=== PATIENT | female | born 1940 | race Caucasian/White ===

== ENCOUNTER → 2016-05-09 | Outpatient (CLI) | payer BC ==
[~2016-05-09] MED LIST: ASPEC325 PO; CLTP PO; FOSI20TA2 PO; FSM70 PO; MULT-506 PO; SIMV40TA2 PO; SYN50 PO
--- NOTE | 2016-05-14 07:54 | MAMMOGRAPHY REPORT ---
UNILATERAL RIGHT DIGITAL DIAGNOSTIC MAMMOGRAM TOMOSYNTHESIS AND TARGETED RIGHT ULTRASOUND: 05/09/2016 CLINICAL HISTORY: Callback from screening mammogram for right breast mass. TECHNIQUE: Breast tomosynthesis in addition to standard 2D mammography was performed. Spot char yu right CC and MLO 2-D and tomosynthesis images were obtained. COMPARISON: Comparison is made to exams dated: 02/08/2016 mammogram, 02/02/2014 mammogram, 5 mammogram, 01/13/2013 mammogram, and 01/21/2012 mammogram - [facility]. BREAST COMPOSITION: There are scattered areas of fibroglandular density in the right breast. FINDINGS: Spot compression views demonstrate a persistent oval partially circumscribed and partiall y obscured 9 mm mass seen within the right 8 9:00 breast. This appears increased compared to prior exams. Targeted ultrasound was performed of the area of the mammographic mass. In the right breast at 8:30 , 4 cm from the nipple, there is an oval circumscribed parallel anechoic mass with a few thin financial services internship al septations, measuring 6 x 3 x 9 mm. This corresponds with the increasing mammographic mass and i s consistent with a benign cyst. IMPRESSION: ACR BI-RADS CATEGORY 2: BENIGN, TARGETED ULTRASOUND ACR BI-RADS CATEGORY 2: BENIGN Benign 9 mm cyst in the right breast at 8:30 on ultrasound, which corresponds with the increasing ma mmographic mass. There is no mammographic or targeted sonographic evidence of malignancy. Return to annual mammogram screening schedule is recommended, due February 2017. The patient has been verbal ly notified of the results. Approximately 10% of breast cancers are not detected with mammography. A negative mammographic repor t should not delay biopsy if a clinically suggestive mass is present. Jannette Ponce M.D. ah/:05/09/2016 09:11:53 Job Specification Writer: Codie ZHANG(Faraz)(M), [facility] letter sent: Normal 1/2 BI-RADS Code: ACR BI-RADS Category 2: Benign Ultrasound BI-RADS: ACR BI-RADS Category 2: Benign
== END | disposition home or self-care (01) ==
LOC: C.MAMM 08:40
PROVIDERS: ATTEND Internal Medicine
DX: N60.01 Solitary cyst of right breast (principal)

== ENCOUNTER → 2016-08-20 | Outpatient (CLI) | payer BC ==
[2016-08-20 12:48] LABS: CALCIUM 9.5 mg/dl (8.5-10.1)
[2016-08-20 12:50] LABS: ALT/SGPT 23 U/L (12-78); BLOOD UREA NITROGEN 13 mg/dl (7-18); BUN/CREATININE RATIO 16.8 (10-20); CARBON DIOXIDE 25 mmol/L (21-32); CHLORIDE 107 mmol/L (98-107); CHOLESTEROL 138 mg/dl (0-200); GLUCOSE 98 mg/dl (70-99); POTASSIUM 4.3 mmol/L (3.5-5.1); SODIUM 141 mmol/L (136-145); TRIGLYCERIDES 143 mg/dl (0-150); VERY LOW DENSITY LIPOPROT CALC 29 mg/dl
[2016-08-20 13:02] LABS: ALB/GLOB RATIO 0.9 (0.9-2); ALKALINE PHOSPHATASE 50 U/L (45-117); AST/SGOT 13 U/L (15-37); CHOLESTEROL/HDL RATIO 3.5; HDL CHOLESTEROL 40 mg/dl; LDL CHOLESTEROL CALCULATED 69 mg/dl; THYROID STIMULATING HORMONE 0.613 uIu/ml (0.300-4.500)
[2016-08-20 13:05] LABS: ESTIMATED AVERAGE GLUCOSE 126 mg/dl; HA1C FLAG Normal (Normal)
== END | disposition home or self-care (01) ==
LOC: C.LABBFT 08:59
PROVIDERS: ATTEND Internal Medicine
DX: E03.9 Hypothyroidism, unspecified (principal); E78.5 Hyperlipidemia, unspecified; R73.01 Impaired fasting glucose

== ENCOUNTER → 2017-02-11 | Outpatient (CLI) | payer BC ==
[2017-02-11 12:26] LABS: ALT/SGPT 20 U/L (12-78); BLOOD UREA NITROGEN 13 mg/dl (7-18); CALCIUM 9.8 mg/dl (8.5-10.1); CARBON DIOXIDE 27 mmol/L (21-32); CHLORIDE 102 mmol/L (98-107); CHOLESTEROL 123 mg/dl (0-200); CREATININE 0.76 mg/dl (0.60-1.20); GLUCOSE 98 mg/dl (70-99); POTASSIUM 3.9 mmol/L (3.5-5.1); SODIUM 136 mmol/L (136-145); TRIGLYCERIDES 110 mg/dl (0-150); VERY LOW DENSITY LIPOPROT CALC 22 mg/dl
[2017-02-11 12:37] LABS: ALB/GLOB RATIO 0.9 (0.9-2); ALKALINE PHOSPHATASE 60 U/L (45-117); AST/SGOT 13 U/L (15-37); CHOLESTEROL/HDL RATIO 2.7; HDL CHOLESTEROL 46 mg/dl; LDL CHOLESTEROL CALCULATED 55 mg/dl
[2017-02-11 12:38] LABS: ESTIMATED AVERAGE GLUCOSE 126 mg/dl; HA1C FLAG Normal (Normal); HEMATOCRIT 45.7 % (37-47); MEAN CELL VOLUME 92.7 fL (80-100); MEAN CORPUSCULAR HEMOGLOBIN 30.6 pg (25-34); MEAN PLATELET VOLUME 10.9 fL (7.4-10.4); PLATELET COUNT 222 K/uL (130-400); RED BLOOD COUNT 4.93 M/uL (4.2-5.4); WHITE BLOOD COUNT 12.04 K/uL (4.8-10.8)
== END | disposition home or self-care (01) ==
LOC: C.LABBFT 07:34
PROVIDERS: ATTEND Internal Medicine
DX: I10 Essential (primary) hypertension (principal); E78.5 Hyperlipidemia, unspecified; E03.9 Hypothyroidism, unspecified; R73.01 Impaired fasting glucose

== ENCOUNTER → 2017-02-17 | Outpatient (CLI) | payer BC ==
--- NOTE | 2017-02-17 12:06 | DIAGNOSTIC IMAGING REPORT ---
RIBS UNILATERAL WITH PA CHEST CLINICAL HISTORY: 76 years-old Female presenting with R07.81 Rib pain on left sideleft. TECHNIQUE: Frontal and oblique views of the left ribs as well as PA view of the chest were obtained. COMPARISON: None. FINDINGS: PA view of the chest demonstrates atherosclerosis of aortic arch. Normal cardiac silhouette size. Elevation of the left hemidiaphragm. Mild prominence of lung markings diffusely. Pulmonary vasculature is not significantly dilated. Minimal bandlike opacity at the left lung base. No large pleural effusion or pneumothorax. Dedicated views of the left ribs demonstrate no displaced rib fracture. Degenerative changes of the lumbar spine. Upper abdomen normal. IMPRESSION: 1. No displaced left rib fracture. 2. Elevated left hemidiaphragm with left basilar atelectasis. 3. Otherwise no evidence of acute cardiopulmonary disease. Electronically signed by: Boyd Bolivar M.D. 02/17/2017 12:05 PM Dictated Date/Time: 02/17/2017 12:01 PM
== END | disposition home or self-care (01) ==
LOC: C.RAD1850 11:31
PROVIDERS: ATTEND Internal Medicine
DX: R07.81 Pleurodynia (principal)

== ENCOUNTER → 2017-02-25 | Outpatient (CLI) | payer BC ==
[~2017-02-25] MED LIST changes: +OPTIRAY 320 IV PRN
--- NOTE | 2017-02-25 16:42 | DIAGNOSTIC IMAGING REPORT ---
ABD/PELVIS IV AND ORAL CONT CLINICAL HISTORY: 76 years-old Female presenting with ABNORMAL FINDING ON IMAGING, ELEVATED KAY DIAPHRA. TECHNIQUE: Multidetector CT of the abdomen and pelvis was performed after the administration of oral and intravenous contrast. IV contrast: 94 L of Optiray 320. A dose lowering technique was used consistent with the principles of ALARA (as low as reasonably achievable). COMPARISON: None. CT DOSE (mGy.cm): The estimated cumulative dose is 287.40 mGy.cm. 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 Lung bases: Extensive consolidation with associated volume loss in the left lower lobe and to a lesser degree in the posterior aspect of the lingula. Minimal dependent atelectasis in the right lower lobe. Aortic valve calcification. Coronary artery calcification. Normal heart size. No pericardial or pleural effusion. Liver: Normal morphology. Vague hypodensity centrally in segment 6 (series 3 image 118). Patent hepatic vasculature. Biliary: No intrahepatic or extrahepatic biliary ductal dilatation. Normal gallbladder. Pancreas: Normal. Spleen: Normal. Adrenal glands: Left adrenal gland contains a 10 mm nodule in the medial limb (series 3 image 119). Right adrenal gland normal. Kidneys and ureters: Normal. No hydronephrosis. Renal vascular calcification noted. No nephrolithiasis. Normal ureters. Bladder: Normal. Pelvic organs: Uterus surgically absent. Bowel: Diverticulosis of the descending and sigmoid colon. Few diverticula also noted near the hepatic flexure. The appendix is normal. No bowel obstruction. Peritoneal cavity: No free fluid or intraperitoneal gas. Lymph nodes: No enlarged lymph nodes in the abdomen or pelvis. Vasculature: Extensive calcified atherosclerotic plaque in the normal caliber abdominal aorta. This is greatest near the aortic bifurcation with significant stenosis. The apparent minimal lumen measures less than 3 mm although this may be exaggerated due to the presence of extensive calcification. IVC patent. Abdominal wall: Diastasis of the rectus abdominis. Musculoskeletal: Normal. IMPRESSION: 1. Left hemidiaphragm elevation with resulting extensive left lower lobe and lingular atelectasis. This is of uncertain etiology and uncertain clinical significance. 2. Extensive atherosclerosis with significant narrowing of the abdominal aorta near the bifurcation. The degree of narrowing depicted on this exam is likely exaggerated secondary to the presence of extensive calcified atherosclerotic plaque. 3. Indeterminate lesion in segment 6 of the liver. 4. 10 mm left adrenal gland nodule, indeterminate. 5. Diverticulosis. Electronically signed by: Boyd Bolivar M.D. 02/25/2017 4:41 PM Dictated Date/Time: 02/25/2017 4:33 PM
== END | disposition home or self-care (01) ==
LOC: C.CTS 15:45
PROVIDERS: ATTEND Internal Medicine
DX: R93.8 Abnormal findings on diagnostic imaging of other specified body structures (principal)

== ENCOUNTER → 2017-04-14 | Outpatient (CLI) | payer BC ==
--- NOTE | 2017-04-14 14:36 | DIAGNOSTIC IMAGING REPORT ---
CT ANGIOGRAM OF THE NECK CLINICAL HISTORY: Carotid artery stenosis. COMPARISON STUDY: CT angiogram of the neck dated 10/05/2015. TECHNIQUE: Following the IV administration of 120 of Optiray 320, CT angiogram of the neck was performed from the aortic arch to the skull base. Images are reviewed in the axial, sagittal, and coronal planes. 3-D MIPS images are created and assessed. IV contrast was administered without complication. All measurements were calculated based on NASCET criteria. A dose lowering technique was utilized adhering to the principles of ALARA. CT DOSE: 862.53 mGycm FINDINGS: Thoracic aorta: There is atherosclerotic calcification of the visualized. The imaged portions of the thoracic aorta are normal in caliber. The aortic arch demonstrates standard 3-vessel anatomy. High-grade stenosis is suspected at the origin of the innominate artery. Right carotid arterial system: The right common carotid artery is widely patent, as are the right internal and external carotid arteries. Only mild plaque is seen in the proximal right internal carotid artery. Left carotid arterial system: The left common carotid artery is widely patent. Advanced atherosclerotic plaque is seen in the left carotid bulb. There is high-grade (greater than 90%) stenosis at the origin of the left internal carotid artery. The remainder of the left internal carotid artery is widely patent. The origin of the left external carotid arteries not well-visualized and may be occluded. Vertebral arteries: There is high-grade stenosis at the origin of the left vertebral artery. The left vertebral artery is otherwise widely patent. The right vertebral artery is widely patent, and the vertebral arteries are codominant. Subclavian arteries: High-grade stenosis is suggested the origin of the left subclavian artery. Less than 50% narrowing is seen throughout the intrathoracic portion of the left subclavian artery secondary soft and calcified plaque. The right subclavian artery appears patent. Intracranial vasculature: The partially imaged intracranial vessels at the skull base appear patent. Jugular veins: Widely patent bilaterally. Brain parenchyma: The visualized brain parenchyma the skull base is within normal limits. Lung apices: Advanced emphysema is noted in the upper lobes. There is a 1.0 cm spiculated nodule in the left upper lobe seen on image #36. This is highly concerning for neoplasm. Soft tissues: The visualized pharyngeal soft tissues are normal in appearance noting angiographic phase technique. The oropharyngeal airway appears widely patent. The salivary glands are normal in appearance. Right-sided thyroid nodules measure up to 1.7 cm. This is better characterized by thyroid ultrasound dictated 09/27/2015. No cervical lymphadenopathy is seen. Skeletal structures: The skeletal structures are osteopenic. The visualized calvarium at the skull base appears intact. The imaged cervical spine appears intact noting mild multilevel spondylosis. Sinuses and mastoids: Trace mucosal thickening is seen within the sphenoid sinuses and the left maxillary antrum. Mastoid air cells are well pneumatized. IMPRESSION: 1. Advanced emphysema. There is a 1.0 cm spiculated nodule in the left upper lobe that is highly concerning for primary pulmonary neoplasm. Follow-up with a dedicated chest CT is recommended for further assessment. 2. The right internal carotid arterial system is widely patent. 3. There is high-grade stenosis with near complete occlusion identified at the origin of the left internal carotid artery. The remainder of the left internal carotid artery is patent. 4. There is high-grade stenosis at the origin of the left vertebral artery. The vertebral arteries are otherwise widely patent. 5. High-grade stenosis is suggested the origins of the innominate and left subclavian arteries. 6. Suspect occlusion at the origin of the left external carotid artery. Electronically signed by: Andrew Nickerson M.D. 04/14/2017 2:35 PM Dictated Date/Time: 04/14/2017 2:23 PM
== END | disposition home or self-care (01) ==
LOC: C.CTS 13:17
PROVIDERS: ATTEND Internal Medicine
DX: I65.22 Occlusion and stenosis of left carotid artery (principal); I65.02 Occlusion and stenosis of left vertebral artery; J43.9 Emphysema, unspecified; R91.1 Solitary pulmonary nodule

== ENCOUNTER → 2017-04-25 | Outpatient (CLI) | payer BC ==
[~2017-04-25] MED LIST changes: -OPTIRAY 320 IV PRN
--- NOTE | 2017-04-25 13:49 | DIAGNOSTIC IMAGING REPORT ---
(CHEST) THORAX WITHOUT CLINICAL HISTORY: 77 years-old Female presenting with R91.1 Solitary pulmonary nodule on lung. TECHNIQUE: Multidetector CT imaging of the chest was performed without the use of intravenous contrast. IV contrast: None. A dose lowering technique was used consistent with the principles of ALARA (as low as reasonably achievable). COMPARISON: CTA neck from 04/14/2017, Chest x-ray from 02/17/[address] of abdomen pelvis from 02/25/2017. CT DOSE (mGy.cm): The estimated cumulative dose is 196.84 mGycm. FINDINGS: Tray Checker topogram: Unremarkable. On soft tissue windows, multinodular thyroid. No axillary, supraclavicular, or mediastinal lymphadenopathy. Evaluation of the mars limited without intravenous contrast. Atherosclerosis of the aorta. Normal heart size. Coronary artery and aortic valve calcification. Trace pericardial effusion. Nodular thickening of the left adrenal gland. On lung windows, elevation of the left hemidiaphragm with persistence extensive atelectasis of the lingula and left lower lobe. Solid 8 mm pulmonary in the posterior left upper lobe (series 4 image 69). Vague nodule opacity peripherally in the right upper lobe (series 4 image 109). Moderate diffuse emphysema. On bone windows, degenerative changes of the spine. Osteopenia. IMPRESSION: 1. Solid 8 mm pulmonary nodule in the left upper lobe is suspicious for neoplasm. Follow-up per Fleischner Society 2017 criteria below. 2. Irregular nodular opacity in the right upper lobe. Attention on follow-up. This may be inflammatory in etiology rather than neoplastic. 3. Emphysema. 4. Trace pericardial effusion. Please refer to below summary of Fleischner Society 2017 recommendations for follow-up of incidental CT nodules (H Urbano et al. Guidelines for management of incidental pulmonary nodules detected on CT images: From the Fleischner Society 2017. Radiology 2017; 284: 228-243.) SOLID NODULES Single nodule; size < 6 mm * Low risk patients: No routine follow-up * High risk patients: Optional CT at 12 months Single nodule; size 6-8 mm * Low risk patients: CT at 6-12 months, then consider CT at 18-24 months * High risk patients: CT at 6-12 months, then at 18-24 months Single nodule; size > 8 mm * Either low or high risk patients: Considered CT at 3 months, PET/CT, or tissue sampling Multiple nodules; size < 6 mm * Low risk patients: No routine follow up * High risk patients: Optional CT at 12 months Multiple nodules; size 6-8 mm * Low risk patients: CT at 3-6 months, then consider CT at 18-24 months * High risk patients: CT at 3-6 months, then at 18-24 months Multiple nodules; size > 8 mm * Low risk patients: CT at 3-6 months, then consider at 18-24 months * High risk patients: CT at 3-6 months, then at 18-24 months Note: These guidelines apply to incidental nodules. These guidelines do not apply to patients younger than 35 years, immunocompromised patients, or patients with cancer. * Low risk patients: Minimal or absent history of smoking and/or other known risk factors * High risk patients: History of smoking, exposure to other carcinogens, emphysema, fibrosis, upper lobe location, family history of lung cancer, etc. * If a nodule up to 8 mm is partly solid or is ground glass, further follow-up is required after 24 months to exclude possible slow growing adenocarcinoma. SUBSOLID NODULES Single ground-glass nodule * Nodule size < 6 mm: No routine follow-up * Nodule size > or = 6 mm: CT at 6-12 months to confirm persistence, then CT every 2 years until 5 years Single part-solid nodule * Nodule size < 6 mm: No routine follow-up * Nodules size > or = 6 mm: CT at 3-6 months to confirm persistence. If unchanged and solid component remains < 6 mm, annual CT should be performed for 5 years Multiple nodules * Nodule size < 6 mm: CT at 3-6 months. If stable, consider CT at 2 and 4 years. * Nodules size > or = 6 mm: CT at 3-6 months. Subsequent management based on the most suspicious nodule(s) The report will be called/faxed according to standard departmental protocol. Electronically signed by: Boyd Bolivar M.D. 04/25/2017 1:47 PM Dictated Date/Time: 04/25/2017 1:38 PM
== END | disposition home or self-care (01) ==
LOC: C.CTS 13:26
PROVIDERS: ATTEND Internal Medicine
DX: R91.1 Solitary pulmonary nodule (principal); J43.9 Emphysema, unspecified; R91.8 Other nonspecific abnormal finding of lung field

== ENCOUNTER 2017-05-22 16:54 | Inpatient (IN) | payer BC, OTHER ==
[~2017-05-22] VITALS: Ht 170.2 cm; Wt 64.2 kg
[2017-05-22] MEDS ORDERED: SODIUM CHLORIDE 0.9% 1000ML 1,000 ML IV STA (17:19)
[2017-05-22] MEDS ORDERED: OXYCODONE/ACETAMINOPHEN 5-325 TAB PO ONE (17:30)
[2017-05-22 17:44] LABS: BASO % 0.2 %; BASO ABS # 0.03 K/uL (0-0.2); EOS % 0.5 %; EOS ABS # 0.06 K/uL (0-0.5); HEMATOCRIT 37.1 % (37-47); HEMOGLOBIN 12.2 g/dL (12.0-16.0); IG# 0.03 K/uL (0.00-0.02); LYMPH % 13.6 %; LYMPH ABS # 1.75 K/uL (1.2-3.4); MEAN CELL VOLUME 88.3 fL (80-100); MEAN CORPUSCULAR HGB CONC 32.9 g/dl (32-36); MEAN PLATELET VOLUME 9.3 fL (7.4-10.4); MONO % 12.8 %; MONO ABS # 1.65 K/uL (0.11-0.59); NEUT % 72.7 %; NEUT ABS # 9.39 K/uL (1.4-6.5); PLATELET COUNT 337 K/uL (130-400); RED CELL DISTRIBUTION WIDTH CV 13.8 % (11.5-14.5); RED CELL DISTRIBUTION WIDTH SD 44.6 fL (36.4-46.3); WHITE BLOOD COUNT 12.91 K/uL (4.8-10.8)
[2017-05-22 17:52] LABS: PTT PATIENT 26.7 SECONDS (21.0-31.0)
[2017-05-22 18:06] LABS: ALBUMIN 3.4 gm/dl (3.4-5.0); ALT/SGPT 16 U/L (12-78); AST/SGOT 14 U/L (15-37); BLOOD UREA NITROGEN 13 mg/dl (7-18); CALCIUM 9.3 mg/dl (8.5-10.1); CARBON DIOXIDE 23 mmol/L (21-32); CREATININE 0.69 mg/dl (0.60-1.20); GLUCOSE 135 mg/dl (70-99); POTASSIUM 3.8 mmol/L (3.5-5.1); SODIUM 132 mmol/L (136-145)
[2017-05-22 18:11] LABS: ALKALINE PHOSPHATASE 73 U/L (45-117); CKMB 0.7 ng/ml (0.5-3.6); TOTAL PROTEIN 7.6 gm/dl (6.4-8.2)
--- NOTE | 2017-05-22 18:23 | DIAGNOSTIC IMAGING REPORT ---
SINGLE VIEW CHEST CLINICAL HISTORY: Fever. Sepsis. FINDINGS: An AP, portable, upright chest radiograph is compared to study dated 02/17/2017 and correlated with chest CT dated 04/25/2017. The examination is degraded by portable technique and patient rotation. The heart is enlarged and there is atherosclerotic calcification of the thoracic aorta. The pulmonary vasculature is noncongested. Emphysema and chronic interstitial thickening are similar to previous. There is unchanged elevation of left hemidiaphragm with segmental atelectasis at the left lung base. The right lung appears clear. Nodular densities seen on the 04/25/[address] was not apparent by x-ray. No pneumothorax is seen. The skeletal structures are osteopenic. The bony thorax is grossly intact. Calcific tendinopathy is noted in the left shoulder. IMPRESSION: 1. Cardiomegaly and emphysema. No acute cardiopulmonary abnormality is identified. 2. There is chronic elevation of left hemidiaphragm with dense atelectasis at the left lung base. 3. Nodular densities seen on the 04/25/[address] are not apparent on today's chest x-ray. Electronically signed by: Andrew Nickerson M.D. 05/22/2017 6:22 PM Dictated Date/Time: 05/22/2017 6:20 PM
[2017-05-22] MEDS ORDERED: FOSI40TA2 PO (18:44)
[2017-05-22] MEDS ORDERED: MULT-663 PO (18:44)
[2017-05-22] MEDS ORDERED: LEVO50TA6 PO (18:44)
[2017-05-22] MEDS ORDERED: MULTTAB5 PO (18:44)
[2017-05-22] MEDS ORDERED: ASPI325T39 PO (18:44)
[2017-05-22] MEDS ORDERED: SIMV80TA2 PO (18:44)
--- NOTE | 2017-05-22 20:22 | History and Physical ---
History & Physical Date & Time of Service: May 22, 2017 at 19:32 Chief Complaint: Extreme Leg And Back Pain, Fluid In Heart Primary Care Physician: Daron Harris M.D. History of Present Illness Source: patient 77 y/o F Hx HTN, HPL, hypothyroidism, carotid stenosis. The pt was undergoing evaluation for a L CEA. She had a stress echo scheduled for today, however, the initial echocardiogram revealed a significant pericardial effusion. Furthermore, she claims she has had a 25 lb wt loss over the past few months and is to consult Pulmonology on the for a suspicious L upper lobe 8mm lung mass. She did not c/o CP, N/V, or fevers. She has been SOB for > 2 wks. 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 Her vital signs have stabilized following IV hydration. The pt also states that she has had excessive pain in her lower back and L leg which has been keeping her up at night. She is scheduled to see an orthopedist in the coming week Past Medical/Surgical History 1) Carotid stenosis - under evaluation for L CEA - post R CEA 2) 8mm L upper lobe mass - under evaluation 3) HTN 4) HPL 5) Osteoporosis 6) Hypothyroidism 7) Type I diastolic dysfunction - echo 05/25 Family History Diabetes mellitus Hypertension Social History Smokes 1/2 pack daily Smoking Status: Current Every Day Smoker Immunizations History of Influenza Vaccine: N/A History of Tetanus Vaccine?: Unknown History of Pneumococcal: Yes Pneumococcal Date: Nov 07, 2005 History of Hepatitis B Vaccine: No Allergies Coded Allergies: No Known Allergies (Verified , NONE, 05/22/17) Home Medications Scheduled Aspirin (Aspirin Ec), 325 MG PO DAILY Fosinopril Sodium (Monopril), 40 MG PO DAILY Levothyroxine Sodium (Levothyroxine Sodium), 1 TAB PO DAILY Multiple Minerals W/ Vitamins (Citracal Plus), 1 TAB PO DAILY Multiple Vitamins W/ Minerals (Centrum), 1 TAB PO DAILY Simvastatin (Zocor), 80 MG PO QPM Review of Systems Constitutional: + weight loss, + fatigue, No fever, No chills, No sweats Eyes: No worsening of vision ENT: No hearing loss, No unusual epistaxis, No nasal symptoms Respiratory: + shortness of breath, + dyspnea on exertion, + dyspnea at rest, No cough, No sputum, No wheezing Cardiovascular: No chest pain, No orthopnea, No PND Abdomen: No pain, No nausea, No vomiting Musculoskeletal: + problem reported (Lower back and L leg pain as above), No joint pain Genitourinary - Female: No dysuria, No urinary frequency, No urinary urgency Neurologic: No memory loss, No paralysis Psychiatric: No depression symptoms Endocrine: + fatigue Hematologic / Lymphatic: No abnormal bleeding/bruising Integumentary: No rash Allergic / Immunologic: No environmental allergies Physical Exam Vital Signs Date Time Temp Pulse Resp B/P (MAP) Pulse Ox O2 Delivery O2 Flow Rate FiO2 05/22/17 18:55 94 20 161/71 97 Room Air 05/22/17 18:11 96 05/22/17 17:39 95 Room Air 05/22/17 16:59 36.5 109 18 84/60 95 Room Air General Appearance: WD/WN, no apparent distress Head: normocephalic Eyes: normal inspection ENT: normal ENT inspection, pharynx normal Neck: supple, no JVD (No JVD - CEA scar on R neck) Respiratory/Chest: chest non-tender, + pertinent finding (Very poor air movement BL - no clear wheezing or crackles - no air entry into L base) Cardiovascular: regular rate, rhythm, no edema, no gallop Abdomen/GI: normal bowel sounds, non tender, soft Back: normal inspection, no CVA tenderness Extremities/Musculoskelatal: normal inspection, normal capillary refill, + pertinent finding (L leg is tender proximally - passive and active movement causes pain along upper L leg, hip, lower back) Neurologic/Psych: 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 for 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 affairs II-XII nml as tested, no motor/sensory deficits, alert, oriented x 3 Skin: normal color, + pertinent finding (Multiple nodules along back - may represent lipomas) Diagnostics Laboratory Results Results Past 24 Hours Test 05/22/17 17:30 Range/Units White Blood Count 12.91 4.8-10.8 K/uL Red Blood Count 4.20 4.2-5.4 M/uL Hemoglobin 12.2 12.0-16.0 g/dL Hematocrit 37.1 37-47 % Mean Corpuscular Volume 88.3 80-100 fL Mean Corpuscular Hemoglobin 29.0 25-34 pg Mean Corpuscular Hemoglobin Concent 32.9 32-36 g/dl Platelet Count 337 130-400 K/uL Mean Platelet Volume 9.3 7.4-10.4 fL Neutrophils (%) (Auto) 72.7 % Lymphocytes (%) (Auto) 13.6 % Monocytes (%) (Auto) 12.8 % Eosinophils (%) (Auto) 0.5 % Basophils (%) (Auto) 0.2 % Neutrophils # (Auto) 9.39 1.4-6.5 K/uL Lymphocytes # (Auto) 1.75 1.2-3.4 K/uL Monocytes # (Auto) 1.65 0.11-0.59 K/uL Eosinophils # (Auto) 0.06 0-0.5 K/uL Basophils # (Auto) 0.03 0-0.2 K/uL RDW Standard Deviation 44.6 36.4-46.3 fL RDW Coefficient of Variation 13.8 11.5-14.5 % Immature Granulocyte % (Auto) 0.2 % Immature Granulocyte # (Auto) 0.03 0.00-0.02 K/uL Prothrombin Time 10.7 9.0-12.0 SECONDS Prothromb Time International Ratio 1.0 0.9-1.1 Activated Partial Thromboplast Time 26.7 21.0-31.0 SECONDS Partial Thromboplastin Ratio 1.0 Sodium Level 132 136-145 mmol/L Potassium Level 3.8 3.5-5.1 mmol/L Chloride Level 99 98-107 mmol/L Carbon Dioxide Level 23 21-32 mmol/L Anion Gap 10.0 3-11 mmol/L Blood Urea Nitrogen 13 7-18 mg/dl Creatinine 0.69 0.60-1.20 mg/dl Est Creatinine Clear Calc Drug Dose 65.4 ml/min Estimated GFR () 96.6 Estimated GFR (Non- 83.4 BUN/Creatinine Ratio 19.0 10-20 Random Glucose 135 70-99 mg/dl Calcium Level 9.3 8.5-10.1 mg/dl Total Bilirubin 0.5 0.2-1 mg/dl Direct Bilirubin 0.2 0-0.2 mg/dl Aspartate Amino Transf (AST/SGOT) 14 15-37 U/L Alanine Aminotransferase (ALT/SGPT) 16 12-78 U/L Alkaline Phosphatase 73 45-117 U/L Total Creatine Kinase 32 26-192 U/L Creatine Kinase MB 0.7 0.5-3.6 ng/ml Creatine Kinase MB Ratio 2.2 0-3.0 Troponin I < 0.015 0-0.045 ng/ml Total Protein 7.6 6.4-8.2 gm/dl Albumin 3.4 3.4-5.0 gm/dl Diagnostic Radiology CXR: 1. Cardiomegaly and emphysema. No acute cardiopulmonary abnormality is identified. 2. There is chronic elevation of left hemidiaphragm with dense atelectasis at the left lung base. 3. Nodular densities seen on the 04/25/[address] are not apparent on today's chest x-ray. CT chest: 04/25/17 1. Solid 8 mm pulmonary nodule in the left upper lobe is suspicious for neoplasm. Follow-up per Fleischner Society 2017 criteria below. 2. Irregular nodular opacity in the right upper lobe. Attention on follow-up. This may be inflammatory in etiology rather than neoplastic. 3. Emphysema. 4. Trace pericardial effusion. EKG NSR, inf inversion - no evidence of tamponade or acute ischemia Impression Assessment and Plan 77 y/o F Hx HTN, HPL, hypothyroidism, carotid stenosis. The pt was undergoing evaluation for a L CEA. She had a stress echo scheduled for today, however, the initial echocardiogram revealed a significant pericardial effusion. Furthermore, she claims she has had a 25 lb wt loss over the past few months and is to consult Pulmonology on the for a suspicious L upper lobe 8mm lung mass. She did not c/o CP, N/V, or fevers. She has been SOB for > 2 wks. 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 Her vital signs have stabilized following IV hydration. The pt also states that she has had excessive pain in her lower back and L leg which has been keeping her up at night. She is scheduled to see an orthopedist in the coming week 1) Pericardial effusion - will likely be drained AM - monitor on telemetry for signs of tamponade. Will hold ASA as effusion may be malignant. Currently there is normal voltage on her EKG and she does not display JVD. 2) HTN - Cont Monopril 3) HPL - cont Zocor 4) Hypothyroidism - cont Synthroid 5) Leg/back pain - as underlying malignancy may be present and her leg is tender to palpation, we will obtain an US to eval for DVT. She can then follow with ortho and a lumbar MRI would be merited. 6) Carotid stenosis - ASA held pending AM cardio eval - cont Zocor. 7) Lung mass - suspected malignancy - f/u with Dr Rose scheduled for 05/31 Full code - SCDs Total time for this admit including review of labs, meds, imaging, records - discussion with pt and ER attending - 45 min Resuscitation Status VTE Prophylaxis Will order VTE Prophylaxis: Yes
[2017-05-22] MEDS ORDERED: ALUMINUM/MAGNESIUM/SIMETH (MAALOX MAX) 30 ML UDC PO PRN (20:30)
[2017-05-22] MEDS ORDERED: ONDANSETRON INJ 2 MG/ML 2 ML VIAL IV PRN (20:30)
[2017-05-22] MEDS ORDERED: ALBUT/IPRATROP 3MG/0.5MG NEB 3 ML VIAL INH PRN (20:30)
[2017-05-22] MEDS ORDERED: ACETAMINOPHEN 325 MG TAB PO PRN (20:30)
[2017-05-22] MEDS ORDERED: POLYETHYLENE (MIRALAX) 17 GM PACK PO PRN (20:30)
[2017-05-22] MEDS ORDERED: ZOLPIDEM TARTRATE 5 MG TAB PO PRN (20:30)
[2017-05-22 20:45] VITALS: Ht 170.2 cm; Wt 64.2 kg
--- NOTE | 2017-05-22 20:50 | EMERGENCY ROOM VISIT NOTE ---
History Report prepared by Victoria: Dc Aj Under the Supervision of: Dr. Eddi Robles D.O. First contact with patient: 17:05 Chief Complaint: REFERRED BY DOCTOR Stated Complaint: EXTREME LEG AND BACK PAIN, FLUID IN HEART History of Present Illness The patient is a 77 year old female who presents to the Emergency Room with complaints of persistent chest pain for two weeks. She describes the chest pain as a heavy pressure and is located in the center of her chest and under rib cage. She states that she cannot lie down without feeling as though her breast plate will split open. She denies any shortness of breath. She states that she was at Dr. Lance's office today to have a pre-op stress echo. She states they were preparing the echo when they noticed there was fluid between the pericardium and the heart. They terminated the echo and advised the patient to go to the ED for evaluation. According to Dr. Lance, the patient has moderate pericardial effusion. The patient has a history of CEA. She states that she initially went to have a wellness checkup 02/07/2017 when these issues were first revealed. She denies any cardiac problems in the past. She notes that she is expected to have another CEA, though it cannot be addressed without the fluid around her heart being addressed first. She also notes that she has been dealing with severe back pain since February 2017. She states there are nodules on her spine. She reports the back pain is radiating to her hips and down her legs to her ankles. She has been taking Tylenol, though there has been no relief. She had a [facility] check up 02/07/2017. She was at Dr. Lance office. They went to do a CT scan with contrast for a stress echo test. They hooked the scanner up and stopped. She said "uh-oh," they did it without the contrast, CT scan found carotid artery was blocked,. was going to have a stent, said had plaque on opposite side too, surgery on has plaque as well Source of History: patient Onset: two weeks Position: chest Quality: pressure Timing: other (persistent) Associated Symptoms: + back pain (radiating to hip and legs down to ankles) , No SOB Review of Systems See HPI for pertinent positives & negatives. A total of 10 systems reviewed and were otherwise negative. Past Medical & Surgical Medical Problems: (1) Back pain (2) Pericardial effusion Surgical Problems: (1) History of CEA (carotid endarterectomy) Family History Diabetes mellitus Hypertension Social History Smoking Status: Current Every Day Smoker Smokeless Tobacco Use: No Alcohol Use: occasionally Drug Use: none Marital Status: Housing Status: lives with significant other Occupation Status: unemployed Current/Historical Medications Scheduled Aspirin (Aspirin Ec), 325 MG PO DAILY Fosinopril Sodium (Monopril), 40 MG PO DAILY Levothyroxine Sodium (Levothyroxine Sodium), 1 TAB PO DAILY Multiple Minerals W/ Vitamins (Citracal Plus), 1 TAB PO DAILY Multiple Vitamins W/ Minerals (Centrum), 1 TAB PO DAILY Simvastatin (Zocor), 80 MG PO QPM Allergies Coded Allergies: No Known Allergies (Verified , NONE, 05/22/17) Physical Exam Vital Signs Date Time Temp Pulse Resp B/P (MAP) Pulse Ox O2 Delivery O2 Flow Rate FiO2 05/22/17 20:24 101 22 05/22/17 19:54 105 05/22/17 19:24 92 17 05/22/17 18:56 161/71 05/22/17 18:55 94 20 161/71 97 Room Air 05/22/17 18:54 97 23 05/22/17 18:24 92 19 05/22/17 18:11 96 05/22/17 17:39 95 Room Air 05/22/17 17:23 131/67 05/22/17 16:59 36.5 109 18 84/60 95 Room Air Physical Exam CONSTITUTIONAL/VITAL SIGNS: Reviewed / noted above. GENERAL: Non-toxic in appearance. INTEGUMENTARY: Warm, dry, and [place]. HEAD: Normocephalic. EYES: without scleral icterus or trauma. ENT/OROPHARYNX: clear and moist. LYMPHADENOPATHY/NECK: Is supple without lymphadenopathy or meningismus. RESPIRATORY: Lungs clear and equal. CARDIOVASCULAR: Regular rate and rhythm. GI/ABDOMEN: Soft and nontender. No organomegaly or pulsatile mass. No rebound or guarding. Normal bowel sounds. EXTREMITIES: Warm and well perfused. BACK: No CVA tenderness. NEUROLOGICAL: Intact without focal deficits. PSYCHIATRIC: normal affect. MUSCULOSKELETAL: Normally developed with good muscle tone. Medical Decision & Procedures ER Provider Diagnostic Interpretation: Radiology results as stated below per my review and radiologist interpretation: SINGLE VIEW CHEST CLINICAL HISTORY: Fever. Sepsis. FINDINGS: An AP, portable, upright chest radiograph is compared to study dated 02/17/2017 and correlated with chest CT dated 04/25/2017. The examination is degraded by portable technique and patient rotation. The heart is enlarged and there is atherosclerotic calcification of the thoracic aorta. The pulmonary vasculature is noncongested. Emphysema and chronic interstitial thickening are similar to previous. There is unchanged elevation of left hemidiaphragm with segmental atelectasis at the left lung base. The right lung appears clear. Nodular densities seen on the 04/25/[address] was not apparent by x-ray. No pneumothorax is seen. The skeletal structures are osteopenic. The bony thorax is grossly intact. Calcific tendinopathy is noted in the left shoulder. IMPRESSION: 1. Cardiomegaly and emphysema. No acute cardiopulmonary abnormality is identified. 2. There is chronic elevation of left hemidiaphragm with dense atelectasis at the left lung base. 3. Nodular densities seen on the 04/25/[address] are not apparent on today's chest x-ray. Electronically signed by: Andrew Nickerson M.D. 05/22/2017 6:22 PM Dictated Date/Time: 05/22/2017 6:20 PM Laboratory Results 05/22/17 17:30 Red Blood Count 4.20, Mean Corpuscular Volume 88.3, Mean Corpuscular Hemoglobin 29.0, Mean Corpuscular Hemoglobin Concent 32.9, Mean Platelet Volume 9.3, Neutrophils (%) (Auto) 72.7, Lymphocytes (%) (Auto) 13.6, Monocytes (%) (Auto) 12.8, Eosinophils (%) (Auto) 0.5, Basophils (%) (Auto) 0.2, Neutrophils # (Auto ) 9.39, Lymphocytes # (Auto) 1.75, Monocytes # (Auto) 1.65, Eosinophils # (Auto ) 0.06, Basophils # (Auto) 0.03 05/22/17 17:30 Test 05/22/17 17:30 White Blood Count 12.91 K/uL (4.8-10.8) Red Blood Count 4.20 M/uL (4.2-5.4) Hemoglobin 12.2 g/dL (12.0-16.0) Hematocrit 37.1 % (37-47) Mean Corpuscular Volume 88.3 fL (80-100) Mean Corpuscular Hemoglobin 29.0 pg (25-34) Mean Corpuscular Hemoglobin Concent 32.9 g/dl (32-36) Platelet Count 337 K/uL (130-400) Mean Platelet Volume 9.3 fL (7.4-10.4) Neutrophils (%) (Auto) 72.7 % Lymphocytes (%) (Auto) 13.6 % Monocytes (%) (Auto) 12.8 % Eosinophils (%) (Auto) 0.5 % Basophils (%) (Auto) 0.2 % Neutrophils # (Auto) 9.39 K/uL (1.4-6.5) Lymphocytes # (Auto) 1.75 K/uL (1.2-3.4) Monocytes # (Auto) 1.65 K/uL (0.11-0.59) Eosinophils # (Auto) 0.06 K/uL (0-0.5) Basophils # (Auto) 0.03 K/uL (0-0.2) RDW Standard Deviation 44.6 fL (36.4-46.3) RDW Coefficient of Variation 13.8 % (11.5-14.5) Immature Granulocyte % (Auto) 0.2 % Immature Granulocyte # (Auto) 0.03 K/uL (0.00-0.02) Prothrombin Time 10.7 SECONDS (9.0-12.0) Prothromb Time International Ratio 1.0 (0.9-1.1) Activated Partial Thromboplast Time 26.7 SECONDS (21.0-31.0) Partial Thromboplastin Ratio 1.0 Anion Gap 10.0 mmol/L (3-11) Est Creatinine Clear Calc Drug Dose 65.4 ml/min Estimated GFR () 96.6 Estimated GFR (Non- 83.4 BUN/Creatinine Ratio 19.0 (10-20) Calcium Level 9.3 mg/dl (8.5-10.1) Total Bilirubin 0.5 mg/dl (0.2-1) Direct Bilirubin 0.2 mg/dl (0-0.2) Aspartate Amino Transf (AST/SGOT) 14 U/L (15-37) Alanine Aminotransferase (ALT/SGPT) 16 U/L (12-78) Alkaline Phosphatase 73 U/L (45-117) Total Creatine Kinase 32 U/L (26-192) Creatine Kinase MB 0.7 ng/ml (0.5-3.6) Creatine Kinase MB Ratio 2.2 (0-3.0) Troponin I < 0.015 ng/ml (0-0.045) Total Protein 7.6 gm/dl (6.4-8.2) Albumin 3.4 gm/dl (3.4-5.0) Laboratory results as stated above per my review. Medications Administered Medications (Trade) Dose Ordered Sig/[place] Route Start Time Stop Time Status Last Admin Dose Admin Sodium Chloride 1,000 ml @ 999 mls/hr Q1H1M STAT IV 05/22/17 17:19 05/22/17 18:19 DC 05/22/17 17:45 999 MLS/HR Oxycodone/ Acetaminophen (Percocet 5-325mg Tab) 1 tab NOW ONCE PO 05/22/17 17:30 05/22/17 17:31 DC 05/22/17 17:45 1 TAB ECG Per My Interpretation Indication: chest pain Rate (beats per minute): 96 Rhythm: normal sinus Findings: no ectopy, other (No ST elevation) ED Course 1706: Previous medical records were reviewed. The patient was evaluated in room B11B. A complete history and physical examination was performed. 171: Ordered Sodium Chloride 1,000 ml @ 999 mls/hr IV 1730: Ordered Oxycodone/Acetaminophen 1 tab PO 4: I spoke with Dr. Dias, [facility] hospitalist. We discussed the patient's case. The patient will be evaluated by the [facility] for further management. Medical Decision Differentials considered include acute myocardial infarction, acute coronary syndrome, myocarditis, pericarditis, pericardial effusions /tamponade, esophageal perforation, thoracic aortic dissection, pulmonary embolism, pneumonia, pneumothorax, pancreatitis, shingles, acute cholecystitis, and perforated abdominal viscus. Patient was having a stress echocardiogram at Dr. Talley's office prior to arrival. The patient had an initial ultrasound that revealed a pericardial effusion. This is moderate to large. The patient was sent here for evaluation/ admission for further treatment. Patient's blood work here was normal. Chest x -ray as noted above. There is noted to be some cardiomegaly. EKG shows a normal sinus rhythm. White blood cell count was 12.9. Complete metabolic panel was normal. Troponin was negative. The patient was told the results. The patient be seen by the hospitalist for further evaluation and care. Medication Reconcilliation Current Medication List: was personally reviewed by me Blood Pressure Screening Patient's blood pressure: Elevated blood pressure referred to hospitalist Consults Time Called: [id number] Consulting Physician: JERED Herring hospitalist Returned Call: [phone] [facility] We discussed the patient's case. The patient will be evaluated by the [facility] for further management. Impression Primary Impression: Pericardial effusion Scribe Attestation The scribe's documentation has been prepared under my direction and personally reviewed by me in its entirety. I confirm that the note above accurately reflects all work, treatment, procedures, and medical decision making performed by me. Departure Information Dispostion Being Evaluated By Hospitalist Referrals No Doctor, Assigned (PCP) Patient Instructions My [facility]
--- NOTE | 2017-05-22 21:44 | DIAGNOSTIC IMAGING REPORT ---
L VENOUS DOPP LOWER EXT UNILAT HISTORY: 77 years-old Female dvt acute left lower extremity swelling COMPARISON: None available TECHNIQUE: Multiple real-time sonographic images of the left lower extremity were obtained assessing grayscale appearance, color and spectral flow FINDINGS: There is normal flow, compressibility, phasicity and augmentation of the left lower extremity deep venous structures. IMPRESSION: No sonographic evidence of deep venous thrombosis. The above report was generated using voice recognition software. It may contain grammatical, syntax or spelling errors. Electronically signed by: Jed Michael M.D. 05/22/2017 9:43 PM Dictated Date/Time: 05/22/2017 9:42 PM
[2017-05-22] MEDS: NSS + 20MEQ KCL 1000ML 1,000 ML IV SCH (21:45)
[2017-05-22] MEDS: TRAMADOL HCL 50 MG TAB PO PRN (21:46)
[2017-05-22] MEDS: SIMVASTATIN 80 MG TAB PO SCH (23:24)
[2017-05-23] VITALS (15 sets, daily range): BP systolic 100–160; BP diastolic 44–93; PULSE 91–113; TEMP 36.4–36.9; O2SAT 92–97
[2017-05-23] MEDS: TRAMADOL HCL 50 MG TAB PO PRN ×2 (01:53→08:49)
[2017-05-23] MEDS: NSS + 20MEQ KCL 1000ML 1,000 ML IV SCH (06:05)
[2017-05-23] MEDS: LEVOTHYROXINE 50 MCG TAB PO SCH (06:05)
[2017-05-23 06:20] LABS: MEAN CELL VOLUME 88.8 fL (80-100); MEAN CORPUSCULAR HEMOGLOBIN 29.6 pg (25-34); MEAN CORPUSCULAR HGB CONC 33.3 g/dl (32-36); PLATELET COUNT 256 K/uL (130-400); RED CELL DISTRIBUTION WIDTH CV 13.9 % (11.5-14.5); RED CELL DISTRIBUTION WIDTH SD 45.3 fL (36.4-46.3); WHITE BLOOD COUNT 11.12 K/uL (4.8-10.8)
[2017-05-23 06:49] LABS: CALCIUM 8.5 mg/dl (8.5-10.1); CREATININE 0.51 mg/dl (0.60-1.20); POTASSIUM 4.5 mmol/L (3.5-5.1)
--- NOTE | 2017-05-23 08:32 | Clinical Documentation Query ---
DARCIE Pineda : CLINICAL DOCUMENTATION QUERY Patient is a 77 year old female admitted for evaluation and treatment of a pericardial effusion. Documentation includes "lung mass-suspected malignancy", noting a follow up with Dr. Rose noted for later this month. As appropriate, consider documentation as suggested below as this affects accurate DRG assignment and cannot be assumed by the professional rn care manager. Thank you. In your clinical opinion is this patient being managed for: (x ) (Likely/Suspected) Malignant primary (or secondary) neoplasm of left upper lobe lung mass ( ) Not Agree ( ) Other explanation of clinical findings (Please Explain) ( ) Unable to determine (Please Define) ( ) Need to Discuss The medical record reflects the following clinical findings, treatment, and risk factors. Clinical Indicators: As above Treatment: Follow up with Dr. Rose 05/31 Risk Factors: Age, current every day smoker Please clarify and document your clinical opinion in the progress notes and discharge summary. Terms such as "probable", "suspected", "likely", "questionable", "possible", or "still to be ruled out" are acceptable. IF IN AGREEMENT, YOU MUST DOCUMENT ABOVE DIAGNOSTIC STATEMENT IN DAILY PROGRESS NOTES AND DISCHARGE SUMMARY. This document is not part of the patient's record. Thank You, Robby Rodriguze, RN [phone]
[2017-05-23] MEDS ORDERED: LISINOPRIL 40 MG TAB PO SCH (09:00)
--- NOTE | 2017-05-23 09:52 | DIAGNOSTIC IMAGING REPORT ---
(CHEST) THORAX WITHOUT CLINICAL HISTORY: 77 years-old Female presenting with lung mass. TECHNIQUE: Multidetector CT imaging of the chest was performed without the use of intravenous contrast. IV contrast: None. A dose lowering technique was used consistent with the principles of ALARA (as low as reasonably achievable). COMPARISON: 04/25/2017. CT DOSE (mGy.cm): The estimated cumulative dose is 211.49 mGy.cm. FINDINGS: Director Drug Safety topogram: Elevation of the left hemidiaphragm. On soft tissue windows, multinodular thyroid. No axillary, supraclavicular, or mediastinal lymphadenopathy. Evaluation of the mars limited without intravenous contrast. Atherosclerosis of the aorta. Normal heart size. Coronary artery calcification. Significant interval increase in the now moderate sized pericardial effusion, which is fairly low-density. Upper abdomen normal. On lung windows, persistent consolidation volume loss at the left lung base. Bandlike opacity at the right lung base, likely atelectasis. Moderate apical predominant emphysema. Redemonstration of the solid nodule in the posterior left upper lobe, which now measures 9 mm in diameter (series 4 image 73), previously 8 mm. Irregular subpleural reticulation and architectural distortion in the periphery of the right upper lobe without a focal nodule (series 4 image 105), not significantly changed from prior. No new nodule. Central airways patent. On bone windows, degenerative changes of the spine. IMPRESSION: 1. Slight interval increase in size of the solid left upper lobe pulmonary nodule. This remains suspicious for neoplasm. Endobronchial biopsy to be considered versus PET/CT. 2. Emphysema. 3. Irregular subpleural abnormality in the right upper lobe is less focal on the current exam, possibly post inflammatory or scarring. 4. Bibasilar atelectasis greater on the left. 5. Increasing size of the now moderate pericardial effusion. This is of uncertain etiology. The report will be called/faxed according to standard departmental protocol. Electronically signed by: Boyd Bolivar M.D. 05/23/2017 9:51 AM Dictated Date/Time: 05/23/2017 9:34 AM
--- NOTE | 2017-05-23 10:02 | CARDIOLOGY CONSULTATION ---
DATE OF CONSULTATION: 05/23/2017 REQUESTING PHYSICIAN: Brock Dias. LAUNDRY MANAGER: Madi Lance D.O., [facility]. REASON FOR CONSULTATION: Yeiduwby-ru-qwgjy sized pericardial effusion with RA inversion in systole. Dear Dr. Dias, Thank you for requesting cardiology consultation on Rosalee with regards to her pericardial effusion. As you know, her history has been documented in her ER records. I met her yesterday as she was scheduled for a dobutamine stress echo ordered by Dr. Pinedo in anticipation of left-sided carotid endarterectomy with bypass of her right innominate. She arrived for dobutamine stress echo, she was found to have a jywmozuq-tj-penzw sized pericardial effusion. CAT scan from 04/14/2017 has suggested a trivial pericardial effusion. The dobutamine stress echo was canceled and a complete echo was performed instead. The RV apex on the echo appears to open at end diastole. There is collapse of the right atrium during systole. There was no significant respiratory variation across the tricuspid or mitral inflows nor the left ventricular outflow tract. The LV was small and underfilled. She did not have tamponade physiology based on her Doppler findings. The RA inversion in systole is concerning that she is starting to have early hemodynamic effects on her heart. She described some mild substernal chest discomfort. She describes shortness of breath lying flat. Her son notes that she has been sleeping in a recliner more and more as she feels short of breath. She denies any palpitations or fluttering. She has significant hip discomfort, which she described yesterday as 9/10. She has had some improvement in that. A DVT study was performed, which was negative upon admission. She denies any scapular discomfort. She does have these circumferential lesions on her back, which are new and are tender. She has had a 25-pound weight loss in the last couple of months. She is nauseous chronically and notes that food, which is not appealing. She appears according to her family to be getting weaker and weaker. She denies any further TIA or stroke-like symptoms. Her initial presentation to Dr. Pinedo was that of amaurosis fugax. REVIEW OF SYSTEMS: The rest of review of systems is otherwise negative. PAST MEDICAL HISTORY: 1. Status post right carotid endarterectomy. 2. 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 3. 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 4. An 8 mm to 10 mm spiculated upper lobe mass, concerning for malignancy. 5. Significant growth in a pericardial effusion, which is now moderate to large in size compared to a CT scan of April 2014. 6. Hypertension. 7. Hyperlipidemia. 8. Severe COPD with a history of longstanding tobacco abuse. 9. Osteoporosis. 10. Hypothyroidism. 11. Anorexia. FAMILY HISTORY: Positive for diabetes and hypertension. SOCIAL HISTORY: Smoking history, she continues to smoke most recently a half a pack per day. She has the support from her family. She is retired. ALLERGIES: No known drug allergies. OUTPATIENT MEDICATIONS: Reviewed in detail. PHYSICAL EXAMINATION: GENERAL: She is awake, alert, and oriented x3. She looks more comfortable than yesterday in the office, although still has hip pain. VITAL SIGNS: Her heart rate is improved at 93. Her blood pressure 157/93, respirations are 20, her pulse ox is 95% on 2 liters. HEENNT: I did not palpate her carotid upstrokes due to her known carotid disease. She does have bilateral carotid bruits along with subclavian bruit on the left and an innominate bruit on the right. Jugular venous pressure appeared normal. Her sclerae is anicteric. Her hearing is normal. LUNGS: Globally decreased breath sounds. No rales, rhonchi or wheezing. HEART: Regular rate and rhythm. Her heart sounds are mildly distant. There were no appreciable murmurs or rubs. ABDOMEN: Soft, nontender, nondistended. Positive bowel sounds. EXTREMITIES: There is no clubbing, cyanosis or edema. PSYCHIATRIC: Affect appeared appropriate. IMAGING STUDIES: Echocardiogram from the office yesterday on 05/22/2017, small underfilled left ventricle, EF greater than 70%, type 1 diastolic dysfunction, normal RV size and function. The RV apex opens completely at end diastole. There was a zwqmlhnx-od-afnno sized circumferential pericardial effusion with RA inversion in mid systole and the RV apex opens completely in diastole. There was no respiratory variation across the mitral or tricuspid inflow or the LVOT. There is a 1-cm thick area of fibrinous material along the RVOT attached to the visceral pericardium. IMPRESSION: 1. Myrdizuo-it-jnspm sized pericardial effusion with RA inversion in systole without any Doppler parameters to suggest tamponade. The RA inversion likely represents early hemodynamic effect. 2. A 25-pound weight loss recently with an 8 mm to 10 mm spiculated left upper lung nodule, concerning for malignancy. 3. Diffuse vascular disease involving her innominate carotid and vertebral systems with a history of amaurosis fugax currently awaiting a left carotid endarterectomy and surgery on her right innominate. 4. Severe chronic obstructive pulmonary disease with ongoing tobacco abuse. PLAN AND RECOMMENDATIONS: As I discussed with Rosalee and her family, it is concerning that the pericardial effusion has grown significantly in 6 weeks associated with weight loss and a left upper lung nodule that is concerning for malignancy. Given the fact that she is stable at this point I recommended that thoracic surgery see her to consider a pericardial window, pericardial biopsy and cell block of her pericardial effusion to rule out a malignancy. If she was to have a malignant pericardial effusion, then her prognosis would be very poor. The other possibility is just a reactive pericardial effusion. She denies any recent history to suggest that she should have pericarditis or viral pericarditis that would have led to an effusion. In addition, she will need a workup for her lung nodule. At this point, she is stable, her blood pressure is stable, her heart rates improved. She likely will need an additional diagnostic testing, especially in light of her hip pain and these nodules that are new on her back and whether this is related to some ongoing malignant process. This is concerning that it may be related to some ongoing malignant process. Thank you for allowing us to participate in her care. TIKI
--- NOTE | 2017-05-23 11:48 | SURGICAL CONSULTATION ---
DATE OF CONSULTATION: 05/23/2017 REASON FOR CONSULTATION: Enlarging pericardial effusion. 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 She states she has smoked between 1/2 and 3/4 of pack a day. Her last cigarette was a day before admission. This patient has lost 24 pounds which is over 15% of her body weight in the last 6 months. She has some chest pain, but she is also a vasculopath. She is complaining of left hip pain which is actually trochanteric upper femur pain which has been going on for several weeks. 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 She had a left upper lobe nodule. Dr. Madi Lance reviewed her echocardiogram and is concerned about this pericardial effusion, especially in light of the fact it is enlarged. He asked me to evaluate her and I had a long talk with the patient, her son and her. The patient notes that she has had increased dyspnea in the last few months. She was admitted yesterday. She was found to have this effusion when a dobutamine stress echocardiogram preoperatively for a left carotid endarterectomy had been noted. Collapse of the right atrium. She has been anorexic. I have been asked to see her about this effusion. PAST MEDICAL HISTORY: 1. Chronic obstructive pulmonary disease. 2. Longstanding tobacco abuse. 3. Weight loss. 4. Hypothyroidism. 5. Left upper lobe mass. 6. 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 7. High grade asymptomatic left carotid stenosis. PAST SURGICAL HISTORY: 1. 3, para 3. 2. Right carotid endarterectomy. MEDICATIONS (AT HOME): 1. Aspirin. 2. Monopril. 3. Zocor. 4. Centrum. 5. Synthroid. 6. Citracal. 7. Multivitamins. ALLERGIES: No known drug allergies. SOCIAL HISTORY: The patient lives alone. She has been smoking since age 17 and smoked between 1/2-3/4 pack a day. She is independent in her activities of daily living. 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 Her family is supportive. FAMILY MEDICAL HISTORY: Significant for hypertension, diabetes. She is not aware of any lung cancer in her family. REVIEW OF SYSTEMS: The patient has lost almost 24 pounds in the last 6 months. She has had increasing fatigue. She has dyspnea at rest and worsening dyspnea on exertion. She denies hemoptysis. She denies productive cough. She has had midsternal chest pain and left hip pain. She also has some pain in her lower back. She has been anorexic. She denies nausea and vomiting or diarrhea. She does describe classic amaurosis fugax of her right eye. She does not have any in the left. She denies any focal weakness. She had no other evidence of transient ischemic attacks. She denies seizures or headaches. She has had no hearing abnormality. She has had no wound breakdown. She denies any peripheral edema. She denies any other neurologic events. PHYSICAL EXAMINATION: GENERAL: This is a thin woman who actually appears younger than her stated age of 77. She is 5 feet 7 inches tall and weighs 136 pounds. She is awake and alert on room air. HEENT: She wears glasses. Her extraocular movements are intact. Pupils are equal, round and reactive. She has dentures. NECK: I do not detect carotid bruit on the right. She has well-healed right neck incision but on the left she does have a fairly loud bruit. She has no lymphadenopathy. She has neck vein distention at 30 degrees. HEART: She has a regular rate and rhythm of her heart, and I really do appreciate a murmur. Her heart sounds are fairly crisp. She does not appear to have pulsus paradoxus. LUNGS: He has decreased breath sounds, worse on the left than the right. I detect no wheezing. ABDOMEN: Soft, nontender with good bowel sounds. EXTREMITIES: She has faintly palpable posterior tibialis pulses. No peripheral edema and she has no joint effusions. NEUROLOGIC: She is awake, alert, no focal deficits. ASSESSMENT AND PLAN: 1. Pericardial effusion. 2. Left upper lobe nodule. 3. Left periaortic adenopathy in the chest. 4. Paralyzed hemidiaphragm. 5. Left hip pain of several weeks' duration. ASSESSMENT AND PLAN: We are going to take the patient to the operating room and we are going to perform a pericardial window as this is enlarging and is concerning. I believe this woman has advanced lung cancer. We will of course send this off for cytology. She is at high risk from a vascular standpoint. I have discussed this case with Dr. Pinedo and the family.
[2017-05-23] MEDS ORDERED: ONDANSETRON INJ 2 MG/ML 2 ML VIAL IV PRN (12:00)
[2017-05-23] MEDS ORDERED: FLUMAZENIL 0.1 MG/1 ML 10 ML VIAL IV PRN (12:00)
[2017-05-23] MEDS ORDERED: LABETALOL HCL IV 5 MG/ML 20ML IV PRN (12:00)
[2017-05-23] MEDS ORDERED: EpHEDrine SULFATE INJ 50 MG/ML AMP IV PRN (12:00)
[2017-05-23] MEDS ORDERED: PHENYLEPHRINE 100MCG/ML 5ML SYR IV PRN (12:00)
[2017-05-23] MEDS ORDERED: HYDROmorphone INJ 1 MG/ML SYR IV PRN (12:00)
[2017-05-23] MEDS ORDERED: MEPERIDINE HCL 25 MG/ML CARP IV PRN (12:00)
[2017-05-23] MEDS ORDERED: MoRPHine SULFATE 10 MG/ML CARP/VIAL IV PRN (12:00)
[2017-05-23] MEDS ORDERED: NALOXONE HCL 0.4 MG/1 ML VIAL/CARP IV PRN (12:00)
[2017-05-23] MEDS ORDERED: ATROPINE SULFATE 0.1 MG/ML 5ML SYR IV PRN (12:00)
[2017-05-23] MEDS ORDERED: DEXAMETHASONE SOD INJ 4 MG/ML VIAL ONE (13:37)
[2017-05-23] MEDS ORDERED: ONDANSETRON INJ 2 MG/ML 2 ML VIAL ONE ×2 (13:37→14:42)
[2017-05-23] MEDS ORDERED: FENTANYL CITRATE INJ 50 MCG/1 ML 2 ML VIAL ONE (13:37)
[2017-05-23] MEDS ORDERED: LIDOCAINE HCL 2% 2 ML VIAL (20MG/ML) ONE ×2 (13:37→14:42)
[2017-05-23] MEDS ORDERED: MIDAZOLAM HCL 1 MG/ML 2ML VIAL ONE (13:37)
[2017-05-23] MEDS ORDERED: GLYCOPYRROLATE INJ 0.2 MG/ML VIAL ONE ×2 (13:37→15:02)
[2017-05-23] MEDS ORDERED: PROPOFOL IV EMULSION 10 MG/ML 20 ML VIAL IV ONE ×2 (13:37→14:42)
[2017-05-23] MEDS ORDERED: NEOSTIGMINE METHYLSULFATE 5 MG/5 ML SYR ONE ×2 (13:37→15:02)
[2017-05-23] MEDS ORDERED: SODIUM CHLORIDE 0.9% INJ 10 ML VIAL ONE (13:40)
[2017-05-23] MEDS ORDERED: SODIUM CHLORIDE 0.9% PF 50 ML VIAL ONE (13:40)
[2017-05-23] MEDS ORDERED: BUPIVACAINE 0.5 % 5 MG/1 ML MPF 30ML VIAL ONE (13:40)
[2017-05-23] MEDS ORDERED: BUPIVACAINE LIPOSOME 1/3% 266 MG/20 ML VIAL INFIL ONE (13:40)
[2017-05-23] MEDS ORDERED: CEFAZOLIN SOD 1 GM VIAL ONE (14:21)
[2017-05-23] MEDS ORDERED: PHENYLEPHRINE HCL INJ 10 MG/ML VIAL ONE ×2 (14:21→16:59)
[2017-05-23] MEDS ORDERED: ROCURONIUM BROMIDE 10 MG/ML 5 ML VIAL IV ONE (14:42)
[2017-05-23] MEDS ORDERED: ESMOLOL HCL 10 MG/ML 10 ML VIAL ONE (15:08)
--- NOTE | 2017-05-23 15:50 | DIAGNOSTIC IMAGING REPORT ---
CHEST ONE VIEW PORTABLE CLINICAL HISTORY: pericardial window COMPARISON STUDY: Chest radiograph May 22, [address] performed earlier today. FINDINGS: A right pleural catheter is in place. There may be a subcutaneous gas within the right neck. No pneumothorax is noted. A small left pleural effusion is noted with persistent left basilar opacity and elevation of the left hemidiaphragm. Size of the cardiac silhouette has likely decreased. Interstitial thickening is unchanged. IMPRESSION: 1. Right chest tube in place. No pneumothorax. Suspected subcutaneous gas within the right lower neck. 2. Mild interval decrease in size of the cardiac silhouette. 3. Persistent left pleural effusion with left basilar opacity. Electronically signed by: Yogi Saldana M.D. 05/23/2017 3:48 PM Dictated Date/Time: 05/23/2017 3:46 PM
[2017-05-23] MEDS ORDERED: NURSING VERBAL MED ORDER ONE (16:15)
--- NOTE | 2017-05-23 16:21 | OPERATIVE REPORT ---
DATE OF OPERATION: 05/23/2017 PREOPERATIVE DIAGNOSIS: Pericardial effusion. POSTOPERATIVE DIAGNOSIS: Same. PROCEDURE: 1. Right thoracoscopy with pericardial window. 2. Biopsy of right level 4 node. SURGEON: David Zhou MD INFORMATION OFFICER: Alber Wright PA-C (Mr. Wright was present for the entire case and was helped with the camera and closed the skin incisions at the conclusion. SPECIFICS OF PROCEDURE AND FINDINGS: Rosalee Dunn is a 77-year-old female who has a pericardial effusion which is enlarged. She underwent an echocardiogram in preparation for an elective carotid endarterectomy and was found to have a pericardial effusion and had early signs of diastolic collapse. Dr. Lance was concerned about her and after seeing her, I agreed. I felt that we should proceed with a window. There are some ominous findings with Rosalee Dunn. She has a significant weight loss and anorexia. She has paralysis of her left hemidiaphragm and has a left upper lobe nodule with periaortic lymphadenopathy, which may be responsible for this paralysis. She is also complaining of severe pain in her left hip which I believe she may well be a metastases as its clinical presentation was consistent with this. I believe this woman may well have carcinoma of the lung with significant metastases. At any rate, I felt that a pericardial window should be offered. I was quite concerned about her, especially with her vascular status for we inserted a left radial arterial line and kept her pressure up with a mean of 85, usually 90-100 during the case. She tolerated it well. She had about 350 mL of a non-clotting bloody fluid. I saw no masses of the pericardium and frozen section showed no evidence of malignancy. We sent some for culture also. We sent the fluid as well as some pleural washings and a right level 4 lymph node for histologic evaluation also. DESCRIPTION OF PROCEDURE: The patient brought to operating room and laid in supine position. General anesthesia induced and endotracheal intubation was formed. The patient was placed in left lateral decubitus position, right chest prepped and draped in usual sterile fashion. A 5 mm incision was made an interspace below the tip of the scapula a little posterior. This showed there were no adhesions. She had almost complete fissures. We placed another 5 mm port about the 4th interspace anteriorly and then another 5 mm port, a bit closer to the mid axillary line down near the diaphragm. Upon entering the pleural cavity, it could be seen that there really was no pleural fluid. We did instill 50 mL of normal saline and sucked this back out and sent it off for cytology. The pericardium was blue and tense. With the use of Kittners retractors, I was able to expose the pericardium quite nicely and identified the phrenic nerve. I then used a hook cautery to place a hole in the pericardium and the fluid came out under great pressure. We drained about 350 mL of a nonclotting pericardial bloody fluid. We did send this for cytology. I then used the hook to create a pericardial linear defect paralleling the phrenic nerve a cm or so anterior. When almost all the way up to the aorta and then using a Harmonic kisha, I then created a window that extended almost all the way down to the diaphragm from the aorta about 4 cm or so in width. There was no further bleeding. I then dissected out a normal appearing level 4 lymph node. The node appeared to be fit rather large on CT, but was not as impressive when we removed it. We really got into no bleeding. 266 mg of Exparel mixed with 30 mL of 0.5% Marcaine and 150 mL of normal saline injected from the 2nd to the 12th rib and also used to anesthetize the thoracoscopy ports. I then removed the inferior most thoracoscopy port and placed a 24-Nepali chest tube through to the apex. Held it in place with a heavy silk suture. No significant air leak. Two 5 mm incisions were closed with 4-0 Monocryl in running subcuticular fashion. The patient tolerated it very well, was extubated in the room. I attest to the content of the Intraoperative Record and any orders documented therein. Any exceptions are noted below. TIKI
--- NOTE | 2017-05-23 16:27 | OPERATIVE REPORT ---
DATE OF OPERATION: 05/23/2017 PREOPERATIVE DIAGNOSES: 1. Stenosis of the right innominate artery. 2. Left internal carotid artery disease (asymptomatic). 3. Pericardial effusion. 4. Left lung mass. POSTOPERATIVE DIAGNOSES: Same. PROCEDURE: Insertion of left radial arterial line. ANESTHESIA: General. SURGEON: Dr. David Zhou. SPECIFICS OF PROCEDURE: The patient is a 77-year-old with pericardial effusion. We were concerned about it and she had an arterial line initially placed on the right; however, she has innominate stenosis and we had a poor waveform. For this reason, we then readied her left radial arterial line after she was put to sleep. She was prepped and draped in usual sterile fashion. A needle was placed into the artery without difficulty and guidewire inserted and then the needle removed. We had an excellent backbleeding in the waveform. This was held in place with Tegaderm. She was then ready for her case. She tolerated it well. I attest to the content of the Intraoperative Record and any orders documented therein. Any exception s are noted below.
[2017-05-23] MEDS ORDERED: ALBUT/IPRATROP 3MG/0.5MG NEB 3 ML VIAL INH ONE (16:30)
--- NOTE | 2017-05-23 17:10 | Anesthesiology Progress Note ---
Anesthesia Post Op Note Date & Time May 23, 2017 at 17:09 Vital Signs Pain Intensity: 0 Vital Signs Past 12 Hours Date Time Temp Pulse Resp B/P (MAP) Pulse Ox O2 Delivery O2 Flow Rate FiO2 05/23/17 17:01 57/41 18 16:59 54/36 05/23/17 16:58 107 19 109/50 91 18 16:58 107 19 05/23/17 16:56 97/53 05/23/17 16:53 103 19 05/23/17 16:53 103 19 105/46 91 05/23/17 16:51 95/56 05/23/17 16:48 104 16 05/23/17 16:48 103 16 109/48 89 05/23/17 16:46 97/54 05/23/17 16:45 36.7 104 24 95/56 (72) 91 Mask 8 109/48 (69) 05/23/17 16:43 105 15 102/44 91 05/23/17 16:43 105 15 05/23/17 16:42 106 16 05/23/17 16:42 105 16 103/44 90 05/23/17 16:41 107/61 18 16:41 107/61 05/23/17 16:37 103 37 103/47 05/23/17 16:37 102 37 05/23/17 16:37 103 37 103/47 05/23/17 16:37 102 37 05/23/17 16:36 92/51 18 16:36 92/51 18 16:32 103 23 05/23/17 16:32 103 23 18 16:32 103 23 99/43 90 1618 16:32 103 23 99/43 90 18 16:31 88/55 1618 16:31 88/55 18 16:30 102 22 93 Mask 10.0 05/23/17 16:27 104 21 106/45 90 1618 16:27 104 21 106/45 90 18 16:27 104 21 1618 16:27 104 21 1618 16:26 102/61 1618 16:26 102/61 18 16:22 102 19 3/16/18 16:22 102 19 3/16/18 16:22 101 19 113/45 89 3/16/18 16:22 101 19 113/45 89 3/16/18 16:21 104/54 3/16/18 16:21 104/54 3/16/18 16:17 99 21 110/44 91 /16/18 16:17 99 21 3/16/18 16:17 99 21 110/44 91 /16/18 16:17 99 21 16/18 16:16 105/59 3/16/18 16:16 105/59 /16/18 16:12 99 20 110/44 90 /16/18 16:12 98 20 /16/18 16:12 99 20 110/44 90 16/18 16:12 98 20 /16/18 16:11 104/66 /16/18 16:11 104/66 /16/18 16:07 97 18 /16/18 16:07 97 18 113/44 92 /16/18 16:07 97 18 113/44 92 /16/18 16:07 97 18 /16/18 16:06 106/59 /16/18 16:02 98 22 109/44 87 /16/18 16:02 99 22 /16/18 16:01 87/69 3/16/18 16:00 23 /16/18 16:00 97 23 111/44 3/16/18 15:57 99/56 3/16/18 15:56 101/ 3/16/18 15:55 97 19 3/16/18 15:55 96 19 101/39 93 3/16/18 15:51 103/64 3/16/18 15:50 96 22 119/44 93 3/16/18 15:50 96 22 3/16/18 15:45 94 17 3/16/18 15:45 94 17 122/45 93 3/16/18 15:44 117/56 3/16/18 15:40 95 20 67/49 93 3/16/18 15:40 95 20 3/16/18 15:35 96 20 3/16/18 15:35 96 20 121/47 94 3/16/18 15:30 36.2 95 22 134/51 (81) 93 Oxymask 10 05/23/17 08:00 Nasal Cannula 2.0 05/23/17 07:47 36.9 93 20 157/93 (114) 95 Nasal Cannula 2.0 Notes Mental Status: alert / awake / arousable, participated in evaluation Pt Amnestic to Procedure: Yes Nausea / Vomiting: adequately controlled Pain: adequately controlled Airway Patency, RR, SpO2: see Notes BP & HR: see Notes Hydration State: stable & adequate Anesthetic Complications: no major complications apparent Anesthetic Complications: Patient requiring higher level of care - plan for transfer to ICU. Please see anesthesia note.
--- NOTE | 2017-05-23 17:24 | Critical Care Consultation ---
Critical Care Consultation Date of Consultation: May 23, 2017. Attending Physician: Simon Rutherford MD Reason for Consultation: Hypoxemia and Hypotension after pericardial window. History of Present Illness She was diagnosed with a enlarging pericardial effusion in the setting of likely lung cancer. Long history of tobacco use. Other issues have included cerebrovascular disease. In the recovery room some persistent hypotension and hypoxemia prompted a decision for overnight care in the ICU. No pain at the time of my interview. No reported dyspnea. No new neurological complaints. I spoke with surgery and anesthesia regarding her care. Past Medical/Surgical History --COPD --HTN --Cerebrovascular Disease with Right CEA --Lung Lesion-- Family History Diabetes mellitus Hypertension noncontributory Social History long years of tobacco abuse Smoking Status: Current Every Day Smoker Smokeless Tobacco Use: No Drug Use: none Marital Status: Housing Status: lives with significant other Occupation Status: unemployed Allergies Coded Allergies: No Known Allergies (Verified , NONE, 05/22/17) Home Medications Scheduled Aspirin (Aspirin Ec), 325 MG PO DAILY Fosinopril Sodium (Monopril), 40 MG PO DAILY Levothyroxine Sodium (Levothyroxine Sodium), 1 TAB PO DAILY Multiple Minerals W/ Vitamins (Citracal Plus), 1 TAB PO DAILY Multiple Vitamins W/ Minerals (Centrum), 1 TAB PO DAILY Simvastatin (Zocor), 80 MG PO QPM Current Inpatient Medications Current Inpatient Medications Medications (Trade) Dose Ordered Sig/Chalino Route Start Time Stop Time Status Last Admin Dose Admin Levothyroxine Sodium (Synthroid Tab) 50 mcg DAILYBB PO 05/23/17 06:00 06/22/17 06:59 05/23/17 06:05 50 MCG Simvastatin (Zocor Tab) 80 mg QPM PO 05/22/17 21:00 06/21/17 20:59 05/22/17 23:24 80 MG Lisinopril (Zestril Tab) 40 mg DAILY PO 05/23/17 09:00 06/22/17 08:59 Al Hydrox/Mg Hydrox/Simethicone (Maalox Max Susp) 15 ml Q4H PRN PO 05/22/17 20:30 06/21/17 20:29 Magnesium Hydroxide (Milk Of Magnesia Susp) 30 ml Q12H PRN PO 05/22/17 20:30 4/14/18 20:29 Ondansetron HCl (Zofran Inj) 4 mg Q6H PRN IV 05/22/17 20:30 06/21/17 20:29 Morphine Sulfate (MoRPHine SULFATE INJ) 2 mg Q30M PRN IV 05/22/17 20:30 06/05/17 20:29 Polyethylene (Miralax Powder Packet) 17 gm DAILY PRN PO 05/22/17 20:30 06/21/17 20:29 Morphine Sulfate (MoRPHine SULFATE INJ) 3 mg Q4H PRN IV 05/22/17 20:30 06/05/17 20:29 Albuterol/ Ipratropium (Duoneb) 3 ml Q6H PRN INH 05/22/17 20:30 06/21/17 20:29 Acetaminophen 1000 mg/Empty Bag 100 ml @ 400 mls/hr Q8H IV 05/23/17 16:00 06/22/17 15:59 Oxycodone HCl (Roxicodone Immediate Rel Tab) 5 mg Q6H PRN PO 05/23/17 15:15 06/06/17 15:14 Review of Systems No dyspnea reported. No substantial pain. No chest pain. No new neurological complaints. Remaining review limited and negative Physical Exam Date Time Temp Pulse Resp B/P (MAP) Pulse Ox O2 Delivery O2 Flow Rate FiO2 05/23/17 17:07 106 18 05/23/17 17:07 105 18 106/48 92 05/23/17 17:06 106/61 05/23/17 17:04 100/55 05/23/17 17:02 105 16 05/23/17 17:02 104 16 111/48 92 05/23/17 17:01 57/41 05/23/17 16:59 54/36 05/23/17 16:58 107 19 109/50 91 05/23/17 16:58 107 19 05/23/17 16:56 97/53 05/23/17 16:53 103 19 05/23/17 16:53 103 19 105/46 91 05/23/17 16:51 95/56 05/23/17 16:48 104 16 05/23/17 16:48 103 16 109/48 89 05/23/17 16:46 97/54 05/23/17 16:45 36.7 104 24 95/56 (72) 91 Mask 8 109/48 (69) 3/16/18 16:43 105 15 102/44 91 3/16/18 16:43 105 15 3/16/18 16:42 106 16 3/16/18 16:42 105 16 103/44 90 3/16/18 16:41 107/61 3/16/18 16:41 107/61 3/16/18 16:37 103 37 103/47 3/16/18 16:37 102 37 3/16/18 16:37 103 37 103/47 3/16/18 16:37 102 37 3/16/18 16:36 92/51 3/16/18 16:36 92/51 3/16/18 16:32 103 23 3/16/18 16:32 103 23 3/16/18 16:32 103 23 99/43 90 3/16/18 16:32 103 23 99/43 90 3/16/18 16:31 88/55 3/16/18 16:31 88/55 3/16/18 16:30 102 22 93 Mask 10.0 3/16/18 16:27 104 21 106/45 90 3/16/18 16:27 104 21 106/45 90 3/16/18 16:27 104 21 3/16/18 16:27 104 21 3/16/18 16:26 102/61 3/16/18 16:26 102/61 3/16/18 16:22 102 19 3/16/18 16:22 102 19 3/16/18 16:22 101 19 113/45 89 3/16/18 16:22 101 19 113/45 89 3/16/18 16:21 104/54 3/16/18 16:21 104/54 3/16/18 16:17 99 21 110/44 91 3/16/18 16:17 99 21 3/16/18 16:17 99 21 110/44 91 3/16/18 16:17 99 21 3/16/18 16:16 105/59 3/16/18 16:16 105/59 3/16/18 16:12 99 20 110/44 90 3/16/18 16:12 98 20 3/16/18 16:12 99 20 110/44 90 3/16/18 16:12 98 20 3/16/18 16:11 104/66 3/16/18 16:11 104/66 16/18 16:07 97 18 1618 16:07 97 18 113/44 92 1618 16:07 97 18 113/44 92 1618 16:07 97 18 1618 16:06 106/59 1618 16:02 98 22 109/44 87 1618 16:02 99 22 1618 16:01 87/69 1618 16:00 23 1618 16:00 97 23 111/44 1618 15:57 99/56 1618 15:56 101/ 1618 15:55 97 19 1618 15:55 96 19 101/39 93 1618 15:51 103/64 1618 15:50 96 22 119/44 93 1618 15:50 96 22 1618 15:45 94 17 18 15:45 94 17 122/45 93 1618 15:44 117/56 1618 15:40 95 20 67/49 93 1618 15:40 95 20 1618 15:35 96 20 1618 15:35 96 20 121/47 94 18 15:30 36.2 95 22 134/51 (81) 93 Oxymask 10 05/23/17 08:00 Nasal Cannula 2.0 05/23/17 07:47 36.9 93 20 157/93 (114) 95 Nasal Cannula 2.0 05/23/17 04:00 Nasal Cannula 2.0 05/23/17 03:18 36.4 103 20 160/78 (105) 95 Nasal Cannula 2.0 05/23/17 02:06 36.6 91 22 97 2.0 05/23/17 00:01 97 Nasal Cannula 2.0 05/22/17 23:34 96 05/22/17 20:45 Room Air 05/22/17 20:24 101 22 05/22/17 19:54 105 05/22/17 19:24 92 17 05/22/17 18:56 161/71 05/22/17 18:55 94 20 161/71 97 Room Air 05/22/17 18:54 97 23 05/22/17 18:24 92 19 05/22/17 18:11 96 05/22/17 17:39 95 Room Air 05/22/17 17:23 131/67 Very frail appearing HEENT--CEA scar on the right--no JVD Pulmonary--exchange is ok Cardio--no rub. Valvular sounds ok. No gallop. Perfusion is adequate but some flow issues chronically on the right UE GI--functional and appropriate Musculo--diffuse muscle wasting is suggested Neuro--no new focal deficits. Laboratory Results Last 24 Hours Test 05/22/17 17:30 05/23/17 06:02 White Blood Count 12.91 K/uL 11.12 K/uL Red Blood Count 4.20 M/uL 3.38 M/uL Hemoglobin 12.2 g/dL 10.0 g/dL Hematocrit 37.1 % 30.0 % Mean Corpuscular Volume 88.3 fL 88.8 fL Mean Corpuscular Hemoglobin 29.0 pg 29.6 pg Mean Corpuscular Hemoglobin Concent 32.9 g/dl 33.3 g/dl Platelet Count 337 K/uL 256 K/uL Mean Platelet Volume 9.3 fL 9.0 fL Neutrophils (%) (Auto) 72.7 % Lymphocytes (%) (Auto) 13.6 % Monocytes (%) (Auto) 12.8 % Eosinophils (%) (Auto) 0.5 % Basophils (%) (Auto) 0.2 % Neutrophils # (Auto) 9.39 K/uL Lymphocytes # (Auto) 1.75 K/uL Monocytes # (Auto) 1.65 K/uL Eosinophils # (Auto) 0.06 K/uL Basophils # (Auto) 0.03 K/uL RDW Standard Deviation 44.6 fL 45.3 fL RDW Coefficient of Variation 13.8 % 13.9 % Immature Granulocyte % (Auto) 0.2 % Immature Granulocyte # (Auto) 0.03 K/uL Prothrombin Time 10.7 SECONDS Prothromb Time International Ratio 1.0 Activated Partial Thromboplast Time 26.7 SECONDS Partial Thromboplastin Ratio 1.0 Sodium Level 132 mmol/L 135 mmol/L Potassium Level 3.8 mmol/L 4.5 mmol/L Chloride Level 99 mmol/L 105 mmol/L Carbon Dioxide Level 23 mmol/L 25 mmol/L Anion Gap 10.0 mmol/L 5.0 mmol/L Blood Urea Nitrogen 13 mg/dl 11 mg/dl Creatinine 0.69 mg/dl 0.51 mg/dl Est Creatinine Clear Calc Drug Dose 65.4 ml/min 88.4 ml/min Estimated GFR () 96.6 106.7 Estimated GFR (Non- 83.4 92.1 BUN/Creatinine Ratio 19.0 22.2 Random Glucose 135 mg/dl 106 mg/dl Calcium Level 9.3 mg/dl 8.5 mg/dl Total Bilirubin 0.5 mg/dl Direct Bilirubin 0.2 mg/dl Aspartate Amino Transf (AST/SGOT) 14 U/L Alanine Aminotransferase (ALT/SGPT) 16 U/L Alkaline Phosphatase 73 U/L Total Creatine Kinase 32 U/L Creatine Kinase MB 0.7 ng/ml Creatine Kinase MB Ratio 2.2 Troponin I < 0.015 ng/ml Total Protein 7.6 gm/dl Albumin 3.4 gm/dl Magnesium Level 2.0 mg/dl Diagnostic Results Reviewed the echo results and labs. Assessment & Plan S/P Pericardial Window/Probable Malignant in origin-- 1. Cardio--will track vitals and titrate pressors. May require some hydration. 2. Pulmonary--supplemental oxygen and track status 3. Path--pending
--- NOTE | 2017-05-23 17:26 | Progress Note ---
Progress Note Date of Service May 23, 2017. Progress Note 77 yo female s/p pericardial window with total of 500cc of pericardial fluid collected during the procedure and a complex PMH including high grade carotid stenosis. Patient had an otherwise uncomplicated intraoperative course. In PACU, patient initially had course breath sounds that improved slightly after aggressive pulmonary toilet and a DuoNeb treatment. Despite this, the patient' s oxygen saturations remained low with values ranging from the high 80s to the low 90s on 8 LPM via oxymask. The patient was mildly tachypneic with RR of 24, but denies SOB and is not in respiratory distress. In addition, during her PACU stay, the patient's BP was intermittently low. (Please see PACU notes for full details). In PACU, we attempted to keep MAPs above 70 and patient was AandO x 3 and appropriate in conversation with this MAP. Despite this, MAPs did drop intermittently below this goal. Towards the end of her PACU stay, I was preparing a phenylephrine drip after a period of MAPs persistently in the low 60s, but the patient's BP princess again without intervention so that her MAP by cyrus on discharge from PACU was 71 off pressors. Due to a desire to monitor her MAP closely with an arterial line, the potential need for pressor support overnight if she drops her MAPS again and her persistently low oxygen saturation despite treatment, the decision was made to upgrade the patient from PCU status to ICU. Dr. Zhou was made aware and was in agreement. I spoke to the ICU attending to provide signout and transfer of care. Darcie Ballesteros MD, PhD Anesthesiology
[2017-05-23] MEDS ORDERED: LEVALBUTEROL 1.25MG/3ML NEB INH PRN (18:00)
[2017-05-23] MEDS: ACETAMINOPHEN IV 1,000 MG in EMPTY BAG 0 ML IV SCH (18:45)
[2017-05-23] MEDS ORDERED: ENOXAPARIN 60 MG/0.6 ML SYR SQ SCH (19:00)
--- NOTE | 2017-05-23 19:42 | Progress Note ---
Subjective Date of Service: May 23, 2017. Subjective Pt evaluation today including: conversation w/ patient, conversation w/ family , physical exam, chart review, lab review, review of studies (CT chest, dopplers legs, op report), conversation w/ mgmt consultant (thoracic surgery, critical care ), review of inpatient medication list Pain: minimal chest discomfort PO Intake: has not eaten since returning from OR Voiding: no voiding problems tele with sinus tach only I saw the patient post-op in the ICU she was resting comfortably denied any significant complaints reported that her recent dyspnea was improved reported 25 pound weight loss over the last 4-5 months Review of Systems Constitutional: + weight loss, No fever Respiratory: No cough, No dyspnea at rest Cardiac: + see HPI, No orthopnea, No PND, No edema Abdomen: No pain Objective Vital Signs Date Time Temp Pulse Resp B/P (MAP) Pulse Ox O2 Delivery O2 Flow Rate FiO2 05/23/17 18:46 113 21 115/53 (73) 94 Oxymask 10.0 05/23/17 18:40 109 19 110/44 (66) 97 Oxymask 10.0 05/23/17 18:31 107 15 100/44 (62) 96 Oxymask 10.0 05/23/17 18:25 107 18 112/44 (66) 95 Oxymask 10.0 05/23/17 18:16 110 24 104/48 (66) 95 Oxymask 10.0 05/23/17 18:10 106 15 108/45 (66) 96 Oxymask 10.0 05/23/17 18:00 112 20 121/68 (85) 94 Oxymask 10.0 114/49 (70) 05/23/17 17:25 36.9 110 24 107/67 (80) 95 Oxymask 10.0 05/23/17 17:07 106 18 05/23/17 17:07 105 18 106/48 92 05/23/17 17:06 106/61 05/23/17 17:04 100/55 05/23/17 17:02 105 16 05/23/17 17:02 104 16 111/48 92 05/23/17 17:01 57/41 05/23/17 16:59 54/36 05/23/17 16:58 107 19 109/50 91 05/23/17 16:58 107 19 3/16/18 16:56 97/53 3/16/18 16:53 103 19 3/16/18 16:53 103 19 105/46 91 3/16/18 16:51 95/56 3/16/18 16:48 104 16 3/16/18 16:48 103 16 109/48 89 3/16/18 16:46 97/54 3/16/18 16:45 36.7 104 24 95/56 (72) 91 Mask 8 109/48 (69) 3/16/18 16:43 105 15 102/44 91 3/16/18 16:43 105 15 3/16/18 16:42 106 16 3/16/18 16:42 105 16 103/44 90 3/16/18 16:41 107/61 3/16/18 16:41 107/61 3/16/18 16:37 103 37 103/47 3/16/18 16:37 102 37 3/16/18 16:37 103 37 103/47 3/16/18 16:37 102 37 3/16/18 16:36 92/51 3/16/18 16:36 92/51 3/16/18 16:32 103 23 3/16/18 16:32 103 23 3/16/18 16:32 103 23 99/43 90 3/16/18 16:32 103 23 99/43 90 3/16/18 16:31 88/55 3/16/18 16:31 88/55 3/16/18 16:30 102 22 93 Mask 10.0 3/16/18 16:27 104 21 106/45 90 3/16/18 16:27 104 21 106/45 90 3/16/18 16:27 104 21 3/16/18 16:27 104 21 3/16/18 16:26 102/61 3/16/18 16:26 102/61 3/16/18 16:22 102 19 3/16/18 16:22 102 19 3/16/18 16:22 101 19 113/45 89 3/16/18 16:22 101 19 113/45 89 3/16/18 16:21 104/54 3/16/18 16:21 104/54 3/16/18 16:17 99 21 110/44 91 3/16/18 16:17 99 21 3/16/18 16:17 99 21 110/44 91 16/18 16:17 99 21 16/18 16:16 105/59 1618 16:16 105/59 1618 16:12 99 20 110/44 90 16/18 16:12 98 20 16/18 16:12 99 20 110/44 90 16/18 16:12 98 20 1618 16:11 104/66 1618 16:11 104/66 1618 16:07 97 18 1618 16:07 97 18 113/44 92 1618 16:07 97 18 113/44 92 1618 16:07 97 18 1618 16:06 106/59 1618 16:02 98 22 109/44 87 1618 16:02 99 22 1618 16:01 87/69 1618 16:00 23 1618 16:00 97 23 111/44 1618 15:57 99/56 16/18 15:56 101/ 1618 15:55 97 19 16/18 15:55 96 19 101/39 93 16/18 15:51 103/64 16/18 15:50 96 22 119/44 93 16/18 15:50 96 22 16/18 15:45 94 17 16/18 15:45 94 17 122/45 93 16/18 15:44 117/56 1618 15:40 95 20 67/49 93 16/18 15:40 95 20 16/18 15:35 96 20 16/18 15:35 96 20 121/47 94 16/18 15:30 36.2 95 22 134/51 (81) 93 Oxymask 10 05/23/17 08:00 Nasal Cannula 2.0 05/23/17 07:47 36.9 93 20 157/93 (114) 95 Nasal Cannula 2.0 05/23/17 04:00 Nasal Cannula 2.0 1618 03:18 36.4 103 20 160/78 (105) 95 Nasal Cannula 2.0 05/23/17 02:06 36.6 91 22 97 2.0 05/23/17 00:01 97 Nasal Cannula 2.0 05/22/17 23:34 96 05/22/17 20:45 Room Air 05/22/17 20:24 101 22 05/22/17 19:54 105 Physical Exam General Appearance: no apparent distress ENT: pharynx normal Neck: no JVD Respiratory/Chest: no respiratory distress, no accessory muscle use, + wheezing (minimal - b/l ) Cardiovascular: no gallop, no murmur, + tachycardia Abdomen: normal bowel sounds, non tender, soft, no organomegaly Extremities: no pedal edema Neurologic/Psychiatric: alert, oriented x 3 Laboratory Results Last 24 Hours Test 05/23/17 06:02 White Blood Count 11.12 K/uL Red Blood Count 3.38 M/uL Hemoglobin 10.0 g/dL Hematocrit 30.0 % Mean Corpuscular Volume 88.8 fL Mean Corpuscular Hemoglobin 29.6 pg Mean Corpuscular Hemoglobin Concent 33.3 g/dl RDW Standard Deviation 45.3 fL RDW Coefficient of Variation 13.9 % Platelet Count 256 K/uL Mean Platelet Volume 9.0 fL Sodium Level 135 mmol/L Potassium Level 4.5 mmol/L Chloride Level 105 mmol/L Carbon Dioxide Level 25 mmol/L Anion Gap 5.0 mmol/L Blood Urea Nitrogen 11 mg/dl Creatinine 0.51 mg/dl Est Creatinine Clear Calc Drug Dose 88.4 ml/min Estimated GFR () 106.7 Estimated GFR (Non- 92.1 BUN/Creatinine Ratio 22.2 Random Glucose 106 mg/dl Calcium Level 8.5 mg/dl Magnesium Level 2.0 mg/dl Assessment and Plan 77yo female - 1. pericardial effusion, s/p pericardial window today by Dr. Zhou - appreciate his assistance. Fluid grossly bloody - highly concerning for malignancy in light of the JAELYN lung mass. They removed 300-350cc. Await cytologies and fluid studies/cultures. Will remain in ICU over the weekend with pericardial drain in place - defer management to ICU physician and thoracic surgery. 2. JAELYN lung mass - highly suspicious for malignancy - in light of #1 this may be a primary lung malignancy. Await pericardial biopsy and fluid cytologies. 3. hypotension - 2nd to #1 - improved s/p fluids and removal of pericardial fluid. 4. COPD - stable, continue nebs/inhalers/supportive care. 5. hyponatremia - improved with IV fluids. BMP am. 6. moderate-severe protein calorie malnutrition - highly suspicious for malignancy - see ravi. 7. hypothyroidism - TSH in 02/2017 was wnl; continue synthroid same dose. 8. PAD with ICA stenosis - noted. 9. HTN - BP meds on hold due to low-normal BP from #1. 10. hyperlipidemia - statin. 11. DVT proph - SCDs for now in light of #1. Defer chemical means to thoracic surgery/critical care. 12. FEN - continue hydration, diet as tolerated, BMP in am. family updated Continued [facility] stay due to: abnormal vital signs, inadequate oral pain control , ambulation difficulties, multiple IV medications needed Discharge planning: uncertain
[2017-05-23] MEDS: SIMVASTATIN 80 MG TAB PO SCH (21:14)
[2017-05-23] MEDS ORDERED: LACTATED RINGER'S 1000ML 1,000 ML IV STA ×2 (21:14→22:54)
[2017-05-23] MEDS: OXYCODONE HCL IR 5 MG TAB (IMMEDIATE RELEASE) PO PRN (22:36)
[2017-05-23] MEDS: MoRPHine SULFATE 4 MG/ML 1 ML CARP\\VIAL IV PRN (23:25)
[2017-05-24] VITALS (15 sets, daily range): BP systolic 84–150; BP diastolic 36–60; PULSE 92–114; TEMP 36.5–37.1; O2SAT 89–96
[2017-05-24] MEDS: ACETAMINOPHEN IV 1,000 MG in EMPTY BAG 0 ML IV SCH ×4 (00:14→23:57)
[2017-05-24 05:51] LABS: HEMATOCRIT 29.3 % (37-47); HEMOGLOBIN 9.9 g/dL (12.0-16.0); MEAN CORPUSCULAR HEMOGLOBIN 29.7 pg (25-34); MEAN CORPUSCULAR HGB CONC 33.8 g/dl (32-36); PLATELET COUNT 246 K/uL (130-400); RED CELL DISTRIBUTION WIDTH CV 13.9 % (11.5-14.5); RED CELL DISTRIBUTION WIDTH SD 45.1 fL (36.4-46.3); WHITE BLOOD COUNT 11.86 K/uL (4.8-10.8)
[2017-05-24] MEDS: LEVOTHYROXINE 50 MCG TAB PO SCH (06:00)
[2017-05-24 06:29] LABS: CALCIUM 8.4 mg/dl (8.5-10.1); CREATININE 0.4 mg/dl (0.60-1.20); PHOSPHORUS 3.1 mg/dl (2.5-4.9); POTASSIUM 4.1 mmol/L (3.5-5.1)
[2017-05-24] MEDS: MoRPHine SULFATE 4 MG/ML 1 ML CARP\\VIAL IV PRN ×3 (07:14→22:45)
--- NOTE | 2017-05-24 07:17 | DIAGNOSTIC IMAGING REPORT ---
CHEST ONE VIEW PORTABLE CLINICAL HISTORY: pericardial window COMPARISON STUDY: 05/23/2017 FINDINGS: Right-sided chest tube with no evidence pneumothorax. Subsegmental atelectasis right base. Trace pleural fluid left base with mild atelectatic change. IMPRESSION: Unremarkable postoperative change. No significant pneumothorax. Unchanging left basilar pleural fluid and/or atelectatic change. The above report was generated using voice recognition software. It may contain grammatical, syntax or spelling errors. Electronically signed by: Riley Stokes M.D. 05/24/2017 7:16 AM Dictated Date/Time: 05/24/2017 7:13 AM
--- NOTE | 2017-05-24 08:28 | Surgery Progress Note ---
Subjective Date of Service: May 24, 2017. Pt. denies dyspnea. No CP. Discussed with overnight associate PAAsiaC and RN---pt. had some transient hypotension that responded to IVF bolus. PT. requiring oxygen via face mask to keep sats > 90%. No additional issues noted. Objective Vitals Date Time Temp Pulse Resp B/P (MAP) Pulse Ox O2 Delivery O2 Flow Rate FiO2 05/24/17 08:00 36.5 102 18 94/45 (61) 92 Nasal Cannula 5.0 05/24/17 06:00 102 18 113/53 (73) 94 Oxymask 8.0 05/24/17 04:00 36.7 108 29 135/59 (84) 96 Oxymask 10.0 05/24/17 04:00 Oxymask 10.0 05/24/17 02:00 112 27 129/53 (78) 95 Oxymask 10.0 05/24/17 00:01 37.0 103 16 93/41 (58) 96 Oxymask 10.0 05/23/17 23:59 Oxymask 10.0 05/23/17 22:00 102 16 120/47 (71) 97 Oxymask 10.0 05/23/17 20:00 36.9 108 24 114/51 (72) 92 Oxymask 10.0 05/23/17 20:00 Oxymask 10.0 05/23/17 18:46 113 21 115/53 (73) 94 Oxymask 10.0 05/23/17 18:40 109 19 110/44 (66) 97 Oxymask 10.0 05/23/17 18:31 107 15 100/44 (62) 96 Oxymask 10.0 05/23/17 18:25 107 18 112/44 (66) 95 Oxymask 10.0 05/23/17 18:16 110 24 104/48 (66) 95 Oxymask 10.0 05/23/17 18:10 106 15 108/45 (66) 96 Oxymask 10.0 05/23/17 18:00 112 20 121/68 (85) 94 Oxymask 10.0 114/49 (70) 05/23/17 17:25 36.9 110 24 107/67 (80) 95 Oxymask 10.0 05/23/17 17:07 106 18 3/16/18 17:07 105 18 106/48 92 3/16/18 17:06 106/61 3/16/18 17:04 100/55 3/16/18 17:02 105 16 3/16/18 17:02 104 16 111/48 92 3/16/18 17:01 57/41 3/16/18 16:59 54/36 3/16/18 16:58 107 19 109/50 91 3/16/18 16:58 107 19 3/16/18 16:56 97/53 3/16/18 16:53 103 19 3/16/18 16:53 103 19 105/46 91 3/16/18 16:51 95/56 3/16/18 16:48 104 16 3/16/18 16:48 103 16 109/48 89 3/16/18 16:46 97/54 3/16/18 16:45 36.7 104 24 95/56 (72) 91 Mask 8 109/48 (69) 3/16/18 16:43 105 15 102/44 91 3/16/18 16:43 105 15 3/16/18 16:42 106 16 3/16/18 16:42 105 16 103/44 90 3/16/18 16:41 107/61 3/16/18 16:41 107/61 3/16/18 16:37 103 37 103/47 3/16/18 16:37 102 37 3/16/18 16:37 103 37 103/47 3/16/18 16:37 102 37 3/16/18 16:36 92/51 3/16/18 16:36 92/51 3/16/18 16:32 103 23 3/16/18 16:32 103 23 3/16/18 16:32 103 23 99/43 90 3/16/18 16:32 103 23 99/43 90 3/16/18 16:31 88/55 3/16/18 16:31 88/55 3/16/18 16:30 102 22 93 Mask 10.0 3/16/18 16:27 104 21 106/45 90 3/16/18 16:27 104 21 106/45 90 3/16/18 16:27 104 21 3/16/18 16:27 104 21 3/16/18 16:26 102/61 3/16/18 16:26 102/61 3/16/18 16:22 102 19 3/16/18 16:22 102 19 3/16/18 16:22 101 19 113/45 89 3/16/18 16:22 101 19 113/45 89 3/16/18 16:21 104/54 3/16/18 16:21 104/54 3/16/18 16:17 99 21 110/44 91 3/16/18 16:17 99 21 3/16/18 16:17 99 21 110/44 91 3/16/18 16:17 99 21 3/16/18 16:16 105/59 3/16/18 16:16 105/59 3/16/18 16:12 99 20 110/44 90 3/16/18 16:12 98 20 3/16/18 16:12 99 20 110/44 90 3/16/18 16:12 98 20 3/16/18 16:11 104/66 3/16/18 16:11 104/66 3/16/18 16:07 97 18 3/16/18 16:07 97 18 113/44 92 3/16/18 16:07 97 18 113/44 92 3/16/18 16:07 97 18 3/16/18 16:06 106/59 3/16/18 16:02 98 22 109/44 87 3/16/18 16:02 99 22 3/16/18 16:01 87/69 3/16/18 16:00 23 3/16/18 16:00 97 23 111/44 3/16/18 15:57 99/56 3/16/18 15:56 101/ 3/16/18 15:55 97 19 3/16/18 15:55 96 19 101/39 93 3/16/18 15:51 103/64 3/16/18 15:50 96 22 119/44 93 3/16/18 15:50 96 22 3/16/18 15:45 94 17 3/16/18 15:45 94 17 122/45 93 3/16/18 15:44 117/56 3/16/18 15:40 95 20 67/49 93 3/16/18 15:40 95 20 3/16/18 15:35 96 20 3/16/18 15:35 96 20 121/47 94 05/23/17 15:30 36.2 95 22 134/51 (81) 93 Oxymask 10 Physical Exam General: + well developed, + well nourished, No distress CV: + RRR Pulmonary: + pertinent finding (decreased at bases), No accessory muscle use, No respiratory distress Neurologic: + converter supervisor II-XII intact, + alert & oriented x 3, + pertinent finding ( pt. moves all extremities and follows commands with noted deficits) Radiology CXR today shows no pneumothorax Drains / Tubes chest tube (500 cc drainage since surgery; no air leak) Assessment & Plan 77 year old female s/p RVTAS with pericardial window -keep CT in place today cultures sent and are (-) today date -pathology pending -mobilize as able -encourage coughing, deep breathing, and use of IS -wean oxygen as able
[2017-05-24] MEDS: OXYCODONE HCL IR 5 MG TAB (IMMEDIATE RELEASE) PO PRN ×2 (10:55→21:07)
--- NOTE | 2017-05-24 12:00 | Critical Care Progress Note ---
Critical Care Progress Note Date of Service May 24, 2017. ICU Day ICU Day Number: [address] Chilel Subjective This AM pt denied any sob or cp ON: no acute events Objective General: frail appearing, in NAD, communicative HEENT: on NC, MMM CV: RRR, nl S1, S2, no mumurs appreciated Pulm: CTAB over anterior lung [place], crackles appreciated over R posterior lung [place] > in basilar region Abdomen: +BS, ND, NTTP Skin: Chest tube intact and dressing site C/D/I Extremities: No pedal edema, calves NTTP Neuro: alert and oriented x 3 CXR: no significant pneumothorax; L basilar pleural fluid and atelectasis unchanged Assessment & Plan 77y/oF with hx of severe COPD with ongoing tobacco use, HTN, CVD with R CEA? admitted for increasing pericardial effusion in the setting of JAELYN spiculated nodule concerning for primary malignancy and 25lb weight loss. 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 Admitted for persistent hypotension and hypoxemia post R thoracoscopy with pericardial window and biopsy of R level [address] Zhou Now with improving hypotension and hypoxia PLAN: Neuro: alert and oriented x 3 Pain meds: Tylenol 1000mg Q8H IV; oxycodone 5mg PO Q6H PRN; Morphine 3mg IV Q4H PRN CV: Improving BP s/p fluids and pericardial window ECHO: 05/22 outpt pre-procedure: small underfilled LV; EF > 70%; type 1 diastolic dysfunction; normal RV size/function; mod-large pericardial effusion Hold BP meds On Simvastatin 80mg QPM Pulm: Nodule JAELYN concerning for primary pulmonary malignancy s/p R thoracoscopy with pericardial window and biopsy; Severe COPD (stable) Cytologies, fluid studies and cultures pending On 5L O2 NC Supplemental O2 as needed for sats > 92% Xopenex 1.25mg Q6H PRN Renal: Cr 0.40 Improving urine output ID: Stable WBC of 11.8 and afebrile Not on Abx Endocrine: Hypothyroidism On Synthroid 50mcg daily Heme: Stable anemia H/H this AM 9.9/29.3; Plt 246 Electrolytes: Hyponatremia worse 132 this AM from 135 Repleted with 500ml NS to improve Na and BP further Nutrition/GI: On regular diet 25lb recent weight loss; Albumin 3.4 IV access: peripheral, [place] L hand DVT Prophylaxis: SCDs CCT: 45 minutes independent of any procedures. Thank you for including us in the care of this patient. Please refer to Dr. Chilel's addendum for further recommendations. Resident Physician Supervision Note: I was present with Dr. Ferro during the history and exam. I discussed the case with the resident and agree with the findings and plan as documented in the note. Any exceptions or clarifications are listed here: May require some volume. Suspect Preload dependent given pulmonary disease and effusion. Documented By: Boyd Chilel Consults & Procedures Consultants: Thoracic Surgery: Dr. Zhou Cardiology: Dr. Lance Procedures: R thoracoscopy with pericardial window; biopsy of R level [address] Zhou 05/23 Data Medications: Current Inpatient Medications Medications (Trade) Dose Ordered Sig/[place] Route Start Time Stop Time Status Last Admin Dose Admin Levothyroxine Sodium (Synthroid Tab) 50 mcg DAILYBB PO 05/23/17 06:00 06/22/17 06:59 05/24/17 06:00 50 MCG Simvastatin (Zocor Tab) 80 mg QPM PO 05/22/17 21:00 06/21/17 20:59 05/23/17 21:14 80 MG Al Hydrox/Mg Hydrox/Simethicone (Maalox Max Susp) 15 ml Q4H PRN PO 05/22/17 20:30 06/21/17 20:29 Magnesium Hydroxide (Milk Of Magnesia Susp) 30 ml Q12H PRN PO 05/22/17 20:30 06/21/17 20:29 Ondansetron HCl (Zofran Inj) 4 mg Q6H PRN IV 05/22/17 20:30 06/21/17 20:29 Morphine Sulfate (MoRPHine SULFATE INJ) 2 mg Q30M PRN IV 05/22/17 20:30 06/05/17 20:29 Polyethylene (Miralax Powder Packet) 17 gm DAILY PRN PO 05/22/17 20:30 06/21/17 20:29 Morphine Sulfate (MoRPHine SULFATE INJ) 3 mg Q4H PRN IV 05/22/17 20:30 06/05/17 20:29 05/24/17 07:14 3 MG Albuterol/ Ipratropium (Duoneb) 3 ml Q6H PRN INH 05/22/17 20:30 06/21/17 20:29 Acetaminophen 1000 mg/Empty Bag 100 ml @ 400 mls/hr Q8H IV 05/23/17 16:00 06/22/17 15:59 05/24/17 07:14 400 MLS/HR Oxycodone HCl (Roxicodone Immediate Rel Tab) 5 mg Q6H PRN PO 05/23/17 15:15 06/06/17 15:14 05/24/17 10:55 5 MG Levalbuterol (Xopenex 1.25MG/ 3ML Neb) 1.25 mg Q6R PRN INH 05/23/17 18:00 06/22/17 17:59 I & O: 24hrs: Is/Os: 4195cc/1770cc +2425cc UOP 800cc rate = 0.51cc/kg/hr Vital Signs: Date Time Temp Pulse Resp B/P (MAP) Pulse Ox O2 Delivery O2 Flow Rate FiO2 05/24/17 10:00 96 15 113/43 (66) 92 Nasal Cannula 5.0 05/24/17 08:00 Nasal Cannula 5.0 05/24/17 08:00 36.5 102 18 94/45 (61) 92 Nasal Cannula 5.0 05/24/17 06:00 102 18 113/53 (73) 94 Oxymask 8.0 05/24/17 04:00 36.7 108 29 135/59 (84) 96 Oxymask 10.0 05/24/17 04:00 Oxymask 10.0 05/24/17 02:00 112 27 129/53 (78) 95 Oxymask 10.0 05/24/17 00:01 37.0 103 16 93/41 (58) 96 Oxymask 10.0 05/23/17 23:59 Oxymask 10.0 05/23/17 22:00 102 16 120/47 (71) 97 Oxymask 10.0 05/23/17 20:00 36.9 108 24 114/51 (72) 92 Oxymask 10.0 05/23/17 20:00 Oxymask 10.0 05/23/17 18:46 113 21 115/53 (73) 94 Oxymask 10.0 16/18 18:40 109 19 110/44 (66) 97 Oxymask 10.0 16/18 18:31 107 15 100/44 (62) 96 Oxymask 10.0 16/18 18:25 107 18 112/44 (66) 95 Oxymask 10.0 16/18 18:16 110 24 104/48 (66) 95 Oxymask 10.0 16/18 18:10 106 15 108/45 (66) 96 Oxymask 10.0 16/18 18:00 112 20 121/68 (85) 94 Oxymask 10.0 114/49 (70) 16/18 17:25 36.9 110 24 107/67 (80) 95 Oxymask 10.0 16/18 17:07 106 18 16/18 17:07 105 18 106/48 92 16/18 17:06 106/61 1618 17:04 100/55 16/18 17:02 105 16 1618 17:02 104 16 111/48 92 16/18 17:01 57/41 16/18 16:59 54/36 16/18 16:58 107 19 109/50 91 16/18 16:58 107 19 1618 16:56 97/53 16/18 16:53 103 19 16/18 16:53 103 19 105/46 91 16/18 16:51 95/56 16/18 16:48 104 16 16/18 16:48 103 16 109/48 89 16/18 16:46 97/54 16/18 16:45 36.7 104 24 95/56 (72) 91 Mask 8 109/48 (69) 1618 16:43 105 15 102/44 91 16/18 16:43 105 15 16/18 16:42 106 16 16/18 16:42 105 16 103/44 90 16/18 16:41 107/61 16/18 16:41 107/61 16/18 16:37 103 37 103/47 16/18 16:37 102 37 16/18 16:37 103 37 103/47 3/16/18 16:37 102 37 3/16/18 16:36 92/51 3/16/18 16:36 92/51 3/16/18 16:32 103 23 3/16/18 16:32 103 23 3/16/18 16:32 103 23 99/43 90 3/16/18 16:32 103 23 99/43 90 3/16/18 16:31 88/55 3/16/18 16:31 88/55 3/16/18 16:30 102 22 93 Mask 10.0 3/16/18 16:27 104 21 106/45 90 3/16/18 16:27 104 21 106/45 90 3/16/18 16:27 104 21 3/16/18 16:27 104 21 3/16/18 16:26 102/61 3/16/18 16:26 102/61 3/16/18 16:22 102 19 3/16/18 16:22 102 19 3/16/18 16:22 101 19 113/45 89 3/16/18 16:22 101 19 113/45 89 3/16/18 16:21 104/54 3/16/18 16:21 104/54 3/16/18 16:17 99 21 110/44 91 3/16/18 16:17 99 21 3/16/18 16:17 99 21 110/44 91 3/16/18 16:17 99 21 3/16/18 16:16 105/59 3/16/18 16:16 105/59 3/16/18 16:12 99 20 110/44 90 3/16/18 16:12 98 20 3/16/18 16:12 99 20 110/44 90 3/16/18 16:12 98 20 3/16/18 16:11 104/66 3/16/18 16:11 104/66 3/16/18 16:07 97 18 3/16/18 16:07 97 18 113/44 92 3/16/18 16:07 97 18 113/44 92 3/16/18 16:07 97 18 3/16/18 16:06 106/59 3/16/18 16:02 98 22 109/44 87 3/16/18 16:02 99 22 3/16/18 16:01 87/69 3/16/18 16:00 23 05/23/17 16:00 97 23 111/44 05/23/17 15:57 99/56 05/23/17 15:56 101/ 05/23/17 15:55 97 19 05/23/17 15:55 96 19 101/39 93 05/23/17 15:51 103/64 05/23/17 15:50 96 22 119/44 93 05/23/17 15:50 96 22 05/23/17 15:45 94 17 05/23/17 15:45 94 17 122/45 93 05/23/17 15:44 117/56 05/23/17 15:40 95 20 67/49 93 05/23/17 15:40 95 20 05/23/17 15:35 96 20 05/23/17 15:35 96 20 121/47 94 05/23/17 15:30 36.2 95 22 134/51 (81) 93 Oxymask 10 Laboratory Results: Last 24 Hours Test 05/24/17 00:13 05/24/17 05:32 05/24/17 05:36 Bedside Glucose 94 mg/dl 90 mg/dl White Blood Count 11.86 K/uL Red Blood Count 3.33 M/uL Hemoglobin 9.9 g/dL Hematocrit 29.3 % Mean Corpuscular Volume 88.0 fL Mean Corpuscular Hemoglobin 29.7 pg Mean Corpuscular Hemoglobin Concent 33.8 g/dl RDW Standard Deviation 45.1 fL RDW Coefficient of Variation 13.9 % Platelet Count 246 K/uL Mean Platelet Volume 9.0 fL Sodium Level 132 mmol/L Potassium Level 4.1 mmol/L Chloride Level 101 mmol/L Carbon Dioxide Level 26 mmol/L Anion Gap 5.0 mmol/L Blood Urea Nitrogen 8 mg/dl Creatinine 0.40 mg/dl Est Creatinine Clear Calc Drug Dose 112.7 ml/min Estimated GFR () 115.6 Estimated GFR (Non- 99.8 BUN/Creatinine Ratio 20.5 Random Glucose 74 mg/dl Calcium Level 8.4 mg/dl Phosphorus Level 3.1 mg/dl Magnesium Level 1.9 mg/dl
[2017-05-24] MEDS ORDERED: SODIUM CHLORIDE 0.9% 500ML 500 ML IV ONE (12:30)
--- NOTE | 2017-05-24 20:04 | Progress Note ---
Subjective Date of Service: May 24, 2017. Subjective Pt evaluation today including: conversation w/ patient, conversation w/ family (daughter at bedside), physical exam, chart review, lab review, review of inpatient medication list Pain: minimal pleuritic pain PO Intake: improving Voiding: no voiding problems no events overnight output from pericardial drain <50cc no dyspnea tele stable overnight Review of Systems Constitutional: No fever, No chills Respiratory: No cough Abdomen: + constipation, No pain Objective Vital Signs Date Time Temp Pulse Resp B/P (MAP) Pulse Ox O2 Delivery O2 Flow Rate FiO2 05/24/17 18:00 94 19 138/50 (79) 93 Nasal Cannula 5.0 05/24/17 16:00 36.6 99 28 126/43 (70) 93 Nasal Cannula 5.0 05/24/17 16:00 Nasal Cannula 5.0 05/24/17 13:00 95 15 97/60 (72) 05/24/17 12:00 Nasal Cannula 5.0 05/24/17 12:00 36.6 103 17 84/39 (54) 95 Nasal Cannula 5.0 05/24/17 10:00 96 15 113/43 (66) 92 Nasal Cannula 5.0 05/24/17 08:00 Nasal Cannula 5.0 05/24/17 08:00 36.5 102 18 94/45 (61) 92 Nasal Cannula 5.0 05/24/17 06:00 102 18 113/53 (73) 94 Oxymask 8.0 05/24/17 04:00 36.7 108 29 135/59 (84) 96 Oxymask 10.0 05/24/17 04:00 Oxymask 10.0 05/24/17 02:00 112 27 129/53 (78) 95 Oxymask 10.0 05/24/17 00:01 37.0 103 16 93/41 (58) 96 Oxymask 10.0 05/23/17 23:59 Oxymask 10.0 05/23/17 22:00 102 16 120/47 (71) 97 Oxymask 10.0 05/23/17 20:00 36.9 108 24 114/51 (72) 92 Oxymask 10.0 05/23/17 20:00 Oxymask 10.0 Physical Exam General Appearance: no apparent distress ENT: pharynx normal Neck: no JVD Respiratory/Chest: no respiratory distress, no accessory muscle use, + wheezing (minimal - b/l) Cardiovascular: regular rate, rhythm, no gallop, no murmur, + friction rub Abdomen: normal bowel sounds, non tender, soft, no organomegaly Extremities: no pedal edema Neurologic/Psychiatric: alert, oriented x 3 Laboratory Results Last 24 Hours Test 05/24/17 00:13 05/24/17 05:32 05/24/17 05:36 Bedside Glucose 94 mg/dl 90 mg/dl White Blood Count 11.86 K/uL Red Blood Count 3.33 M/uL Hemoglobin 9.9 g/dL Hematocrit 29.3 % Mean Corpuscular Volume 88.0 fL Mean Corpuscular Hemoglobin 29.7 pg Mean Corpuscular Hemoglobin Concent 33.8 g/dl RDW Standard Deviation 45.1 fL RDW Coefficient of Variation 13.9 % Platelet Count 246 K/uL Mean Platelet Volume 9.0 fL Sodium Level 132 mmol/L Potassium Level 4.1 mmol/L Chloride Level 101 mmol/L Carbon Dioxide Level 26 mmol/L Anion Gap 5.0 mmol/L Blood Urea Nitrogen 8 mg/dl Creatinine 0.40 mg/dl Est Creatinine Clear Calc Drug Dose 112.7 ml/min Estimated GFR () 115.6 Estimated GFR (Non- 99.8 BUN/Creatinine Ratio 20.5 Random Glucose 74 mg/dl Calcium Level 8.4 mg/dl Phosphorus Level 3.1 mg/dl Magnesium Level 1.9 mg/dl Assessment and Plan 77yo female - 1. pericardial effusion, s/p pericardial window by Dr. Zhou - POD #1 - Fluid grossly bloody - highly concerning for malignancy in light of the JAELYN lung mass. They removed 300-350cc. Awaiting cytologies and fluid studies/cultures although latter thus far negative. Will remain in ICU over the weekend with pericardial drain in place - defer management to ICU physician and thoracic surgery. 2. JAELYN lung mass - highly suspicious for malignancy - in light of #1 this may be a primary lung malignancy. Await pericardial biopsy and fluid cytologies. 3. hypotension - 2nd to #1 - resolved. 4. COPD - stable, continue nebs/inhalers/supportive care. 5. hyponatremia - ongoing but stable; BMP in am. 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 Check serum osm, urine osm, urine Na. 6. moderate-severe protein calorie malnutrition - highly suspicious for malignancy - see above. 7. hypothyroidism - TSH in 02/2017 was wnl; continue synthroid same dose. 8. PAD with ICA stenosis on left - noted. Cont statin, asa when ok with thoracic surgery. 9. HTN - BP meds on hold due to #1. 10. hyperlipidemia - statin. 11. DVT proph - SCDs for now in light of #1. Defer chemical means to thoracic surgery/critical care. 12. FEN - diet as tolerated, BMP in am. daughter updated at bedside Continued [facility] stay due to: ambulation difficulties, multiple IV medications needed Discharge planning: uncertain
[2017-05-24] MEDS ORDERED: POLYETHYLENE (MIRALAX) 17 GM PACK PO ONE (20:15)
[2017-05-24] MEDS: SIMVASTATIN 80 MG TAB PO SCH (21:06)
[2017-05-25] VITALS (13 sets, daily range): BP systolic 80–160; BP diastolic 29–78; PULSE 91–101; TEMP 36.6–37.4; O2SAT 75–96
[2017-05-25 04:47] LABS: OSMOLALITY,URINE 213 mOms/kg (500-800)
[2017-05-25 04:52] LABS: SODIUM RANDOM URINE 22 mEq/L
[2017-05-25 05:57] LABS: HEMATOCRIT 27.9 % (37-47); HEMOGLOBIN 9.2 g/dL (12.0-16.0); MEAN PLATELET VOLUME 8.8 fL (7.4-10.4); PLATELET COUNT 236 K/uL (130-400); RED CELL DISTRIBUTION WIDTH CV 13.8 % (11.5-14.5); WHITE BLOOD COUNT 8.13 K/uL (4.8-10.8)
[2017-05-25] MEDS: LEVOTHYROXINE 50 MCG TAB PO SCH (06:16)
[2017-05-25 06:17] LABS: CALCIUM 8.3 mg/dl (8.5-10.1); CREATININE 0.35 mg/dl (0.60-1.20); PHOSPHORUS 2.6 mg/dl (2.5-4.9); POTASSIUM 3.7 mmol/L (3.5-5.1)
--- NOTE | 2017-05-25 06:36 | Critical Care Progress Note ---
Critical Care Progress Note Date of Service May 25, 2017. ICU Day ICU Day Number: [address] Antony Subjective This AM pt reports tiredness, and mild chest tube site pain with moving and deep breathing. Otherwise denied sob. ON: no acute events or nursing concerns Objective General: frail appearing, in NAD, communicative HEENT: on oxymask, MMM CV: RRR, nl S1, S2, no mumurs appreciated Pulm: CTAB with equal breath sounds bilaterally and coarse breath sounds Abdomen: +BS, ND, NTTP Skin: Chest tube intact and dressing site C/D/I Extremities: No pedal edema, calves NTTP Neuro: alert and oriented x 3 CXR 05/24: no significant pneumothorax; L basilar pleural fluid and atelectasis unchanged Assessment & Plan 77y/oF with hx of severe COPD with ongoing tobacco use, HTN, CVD with R CEA? admitted for increasing pericardial effusion in the setting of JAELYN spiculated nodule concerning for primary malignancy with 25lb weight loss. 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 Admitted for persistent hypotension and hypoxemia post R thoracoscopy with pericardial window and biopsy of R level [address] Zhou Now with improving hypotension and hypoxia. BP A-line 100s-140s/30s-50s HR in 90s. PLAN: Neuro: alert and oriented x 3 Pain meds: Tylenol 1000mg Q8H IV; oxycodone 5mg PO Q6H PRN; Morphine 3mg IV Q4H PRN CV: Improving BP s/p fluids and pericardial window ECHO: 05/22 outpt pre-procedure: small underfilled LV; EF > 70%; type 1 diastolic dysfunction; normal RV size/function; mod-large pericardial effusion Hold BP meds On Simvastatin 80mg QPM Pulm: Nodule JAELYN concerning for primary pulmonary malignancy s/p R thoracoscopy with pericardial window and biopsy; Severe COPD (stable) Pericardial fluid - fungal Cx: neg; bacterial Cx: NGTD; acid fast stain and mycobacterial cx: pending On 5L O2 via oxymask Supplemental O2 as needed for sats > 92% Xopenex 1.25mg Q6H PRN Renal: Cr 0.35 Improving urine output ID: WBC improved to 8.1 and afebrile Not on Abx Endocrine: Hypothyroidism On Synthroid 50mcg daily Heme: Stable anemia H/H this AM 9.2/29.3; Plt 236 Electrolytes: Hyponatremia improved to 133 this AM from 132 Repleted with 500ml NS to improve Na and BP further - yesterday Consider another 500ml NS bolus Nutrition/GI: On regular diet 25lb recent weight loss; Albumin 3.4 IV access: peripheral, Kelsey L hand DVT Prophylaxis: SCDs CCT: 45 minutes independent of any procedures. Thank you for including us in the care of this patient. Please refer to Dr. Antony's addendum for further recommendations. Resident Physician Supervision Note: Dr. Ferro was resident physician during care of patient. I separately evaluated patient and did history and exam. I discussed the case with the resident and generally agree with the findings and plan. Patient sitting upright in bed, eating breakfast during my evaluation and assessment. No shortness of breath, had been up and out of bed to bedside commode, no significant pain at chest tube site. Feels improved. Discontinue arterial line today, discussed case with thoracic surgery, stable for downgrade out of ICU today Documented By: Robby Antony DO Consults & Procedures Consultants: Thoracic Surgery: Dr. Zhou Cardiology: Dr. Lance Procedures: R thoracoscopy with pericardial window; biopsy of R level [address] Zhou 05/23 Data Medications: Current Inpatient Medications Medications (Trade) Dose Ordered Sig/[place] Route Start Time Stop Time Status Last Admin Dose Admin Levothyroxine Sodium (Synthroid Tab) 50 mcg DAILYBB PO 05/23/17 06:00 06/22/17 06:59 05/25/17 06:16 50 MCG Simvastatin (Zocor Tab) 80 mg QPM PO 05/22/17 21:00 06/21/17 20:59 05/24/17 21:06 80 MG Al Hydrox/Mg Hydrox/Simethicone (Maalox Max Susp) 15 ml Q4H PRN PO 05/22/17 20:30 06/21/17 20:29 Magnesium Hydroxide (Milk Of Magnesia Susp) 30 ml Q12H PRN PO 05/22/17 20:30 06/21/17 20:29 Ondansetron HCl (Zofran Inj) 4 mg Q6H PRN IV 05/22/17 20:30 06/21/17 20:29 Morphine Sulfate (MoRPHine SULFATE INJ) 2 mg Q30M PRN IV 05/22/17 20:30 06/05/17 20:29 Morphine Sulfate (MoRPHine SULFATE INJ) 3 mg Q4H PRN IV 05/22/17 20:30 06/05/17 20:29 05/24/17 22:45 3 MG Albuterol/ Ipratropium (Duoneb) 3 ml Q6H PRN INH 05/22/17 20:30 06/21/17 20:29 Acetaminophen 1000 mg/Empty Bag 100 ml @ 400 mls/hr Q8H IV 05/23/17 16:00 06/22/17 15:59 05/24/17 23:57 400 MLS/HR Oxycodone HCl (Roxicodone Immediate Rel Tab) 5 mg Q6H PRN PO 05/23/17 15:15 06/06/17 15:14 05/24/17 21:07 5 MG Levalbuterol (Xopenex 1.25MG/ 3ML Neb) 1.25 mg Q6R PRN INH 05/23/17 18:00 06/22/17 17:59 Polyethylene (Miralax Powder Packet) 17 gm DAILY PO 05/25/17 09:00 06/21/17 20:29 Multivitamins/ Minerals (Multivitamin W/ Minerals Tab) 1 tab QAM PO 05/25/17 09:00 06/24/17 08:59 Enteral Nutritional Formula (Boost) 1 can BIDM PO 05/25/17 07:15 06/24/17 07:14 I & O: 24hrs: Is/Os: 2391cc/3150cc net -759cc UOP 2900cc rate = 1.83cc/kg/hr Vital Signs: Date Time Temp Pulse Resp B/P (MAP) Pulse Ox O2 Delivery O2 Flow Rate FiO2 05/25/17 06:00 101 24 160/54 (89) 93 Oxymask 5.0 05/25/17 04:00 Oxymask 5.0 05/25/17 04:00 96 21 147/49 (81) 94 Oxymask 5.0 05/25/17 03:00 93 15 108/35 (59) 94 Oxymask 5.0 05/25/17 02:00 91 12 80/29 (46) 95 Oxymask 5.0 05/25/17 01:00 91 14 107/35 (59) 93 Oxymask 5.0 05/25/17 00:01 94 14 112/37 (62) 95 Oxymask 5.0 05/25/17 00:00 36.8 94 14 114/39 (64) 94 Oxymask 5.0 05/24/17 23:59 Oxymask 5.0 05/24/17 23:00 92 13 100/36 (57) 95 Oxymask 5.0 05/24/17 22:00 95 14 109/36 (60) 93 Nasal Cannula 5.0 05/24/17 21:00 114 150/44 (79) 89 Nasal Cannula 5.0 05/24/17 20:00 Nasal Cannula 5.0 05/24/17 20:00 37.1 96 21 142/46 (78) 93 Nasal Cannula 5.0 05/24/17 19:00 95 17 143/47 (79) 94 Nasal Cannula 5.0 05/24/17 18:00 94 19 138/50 (79) 93 Nasal Cannula 5.0 05/24/17 16:00 36.6 99 28 126/43 (70) 93 Nasal Cannula 5.0 05/24/17 16:00 Nasal Cannula 5.0 05/24/17 13:00 95 15 97/60 (72) 05/24/17 12:00 Nasal Cannula 5.0 05/24/17 12:00 36.6 103 17 84/39 (54) 95 Nasal Cannula 5.0 05/24/17 10:00 96 15 113/43 (66) 92 Nasal Cannula 5.0 05/24/17 08:00 Nasal Cannula 5.0 05/24/17 08:00 36.5 102 18 94/45 (61) 92 Nasal Cannula 5.0 Laboratory Results: Last 24 Hours Test 05/24/17 16:02 05/25/17 00:06 05/25/17 04:20 05/25/17 05:35 Bedside Glucose 105 mg/dl 98 mg/dl Urine Osmolality 213 mOms/kg Urine Random Sodium 22 mEq/L White Blood Count 8.13 K/uL Red Blood Count 3.17 M/uL Hemoglobin 9.2 g/dL Hematocrit 27.9 % Mean Corpuscular Volume 88.0 fL Mean Corpuscular Hemoglobin 29.0 pg Mean Corpuscular Hemoglobin Concent 33.0 g/dl RDW Standard Deviation 45.0 fL RDW Coefficient of Variation 13.8 % Platelet Count 236 K/uL Mean Platelet Volume 8.8 fL Sodium Level 133 mmol/L Potassium Level 3.7 mmol/L Chloride Level 102 mmol/L Carbon Dioxide Level 26 mmol/L Anion Gap 5.0 mmol/L Blood Urea Nitrogen 9 mg/dl Creatinine 0.35 mg/dl Est Creatinine Clear Calc Drug Dose 128.9 ml/min Estimated GFR () 120.8 Estimated GFR (Non- 104.2 BUN/Creatinine Ratio 25.1 Random Glucose 89 mg/dl Calcium Level 8.3 mg/dl Phosphorus Level 2.6 mg/dl Magnesium Level 2.0 mg/dl Test 05/25/17 05:39 Bedside Glucose 101 mg/dl
[2017-05-25] MEDS: CEROVITE ADV FORMULA TAB PO SCH (07:31)
[2017-05-25] MEDS: BOOST VANILLA PO SCH ×2 (07:31→20:45)
[2017-05-25] MEDS: ACETAMINOPHEN IV 1,000 MG in EMPTY BAG 0 ML IV SCH ×3 (07:31→23:54)
[2017-05-25] MEDS: POLYETHYLENE (MIRALAX) 17 GM PACK PO SCH (08:10)
--- NOTE | 2017-05-25 09:48 | SURGERY PROGRESS NOTE ---
DATE: 05/25/2017 Ms. Dunn was seen today on 05/25/2017. She looks very good. We were weaning her oxygen down. She is currently on 3 liters with good saturations. Unfortunately, she is very much a mouth breather and when she goes to sleep, her sats dropped unless a mask is in place. Her lungs sound good. Her x-ray yesterday looked great. She did have some thrombin including her chest tube, which we milked out today. She does not have an air leak and has drained very little fluid. We are going to check her chest x-ray tomorrow and if it looks good, we pull this tube out tomorrow. It is still my feeling that we are dealing with a probable metastatic lung cancer. I will be curious to see what the final pathology from the results on the right side show. I am concerned that we were dealing with malignant pericardial effusion. We are going to transfer her to a regular floor. She does not need to be monitored. We can hopefully wean her off of her oxygen. One of the reasons for her hypoxemia is she has a paralyzed left hemidiaphragm. She also has a long history of active cigarette smoking.
--- NOTE | 2017-05-25 10:05 | Hospitalist Progress Note ---
Hospitalist Progress Note Date of Service May 25, 2017. Subjective Pt evaluation today including: conversation w/ patient, physical exam, chart review, lab review, conversation w/ industrial methods consultant (Thoracic SUrgery), review of inpatient medication list Voiding: no voiding problems Patient has some pain in the left hip that radiates down the medial thigh to the anterior left johnson. Also having some pain at the site of the chest tube. Coughed up a little bit of dark sputum this morning. Remains on oxygen mask as her sats drop in the low 80s while sleeping-RN reports she is a mouth breather. Discussed case with thoracic surgery today and she is stable for transfer to the floor, chest tube will remain in place for today. Constitutional: No fever Abdomen: + constipation All Other Systems: Reviewed and Negative Objective Vital Signs Date Time Temp Pulse Resp B/P (MAP) Pulse Ox O2 Delivery O2 Flow Rate FiO2 05/25/17 08:00 Nasal Cannula 4.0 05/25/17 08:00 36.6 101 20 125/65 (85) 94 Nasal Cannula 4.0 05/25/17 06:00 101 24 160/54 (89) 93 Oxymask 5.0 05/25/17 04:00 Oxymask 5.0 05/25/17 04:00 96 21 147/49 (81) 94 Oxymask 5.0 05/25/17 03:00 93 15 108/35 (59) 94 Oxymask 5.0 05/25/17 02:00 91 12 80/29 (46) 95 Oxymask 5.0 05/25/17 01:00 91 14 107/35 (59) 93 Oxymask 5.0 05/25/17 00:01 94 14 112/37 (62) 95 Oxymask 5.0 05/25/17 00:00 36.8 94 14 114/39 (64) 94 Oxymask 5.0 05/24/17 23:59 Oxymask 5.0 05/24/17 23:00 92 13 100/36 (57) 95 Oxymask 5.0 05/24/17 22:00 95 14 109/36 (60) 93 Nasal Cannula 5.0 05/24/17 21:00 114 150/44 (79) 89 Nasal Cannula 5.0 05/24/17 20:00 Nasal Cannula 5.0 05/24/17 20:00 37.1 96 21 142/46 (78) 93 Nasal Cannula 5.0 05/24/17 19:00 95 17 143/47 (79) 94 Nasal Cannula 5.0 05/24/17 18:00 94 19 138/50 (79) 93 Nasal Cannula 5.0 05/24/17 16:00 36.6 99 28 126/43 (70) 93 Nasal Cannula 5.0 05/24/17 16:00 Nasal Cannula 5.0 05/24/17 13:00 95 15 97/60 (72) 05/24/17 12:00 Nasal Cannula 5.0 05/24/17 12:00 36.6 103 17 84/39 (54) 95 Nasal Cannula 5.0 05/24/17 10:00 96 15 113/43 (66) 92 Nasal Cannula 5.0 Physical Exam General Appearance: WD/WN, no apparent distress Eyes: normal inspection, sclerae normal ENT: hearing grossly normal Neck: trachea midline, + pertinent finding (Left carotid bruit) Respiratory/Chest: no respiratory distress, no accessory muscle use, + decreased breath sounds (At the left base, otherwise diminished throughout, no wheezes or crackles or rhonchi) Cardiovascular: regular rate, rhythm, no edema, + systolic murmur (At the RUSB , 2/6) Abdomen: normal bowel sounds, non tender, soft Extremities: normal inspection, no pedal edema, no calf tenderness, + pertinent finding (Positive TTP over left greater trochanter, positive left straight leg raise, full strength in lower extremities bilaterally) Neurologic/Psychiatric: alert, normal mood/affect, oriented x 3 Skin: normal color, warm/dry, no rash, + pertinent finding (1 cm nodule mid back with central black core consistent with EIC) Laboratory Results Last 24 Hours Test 05/24/17 16:02 05/25/17 00:06 05/25/17 04:20 05/25/17 05:35 Bedside Glucose 105 mg/dl 98 mg/dl Urine Osmolality 213 mOms/kg Urine Random Sodium 22 mEq/L White Blood Count 8.13 K/uL Red Blood Count 3.17 M/uL Hemoglobin 9.2 g/dL Hematocrit 27.9 % Mean Corpuscular Volume 88.0 fL Mean Corpuscular Hemoglobin 29.0 pg Mean Corpuscular Hemoglobin Concent 33.0 g/dl RDW Standard Deviation 45.0 fL RDW Coefficient of Variation 13.8 % Platelet Count 236 K/uL Mean Platelet Volume 8.8 fL Sodium Level 133 mmol/L Potassium Level 3.7 mmol/L Chloride Level 102 mmol/L Carbon Dioxide Level 26 mmol/L Anion Gap 5.0 mmol/L Blood Urea Nitrogen 9 mg/dl Creatinine 0.35 mg/dl Est Creatinine Clear Calc Drug Dose 128.9 ml/min Estimated GFR () 120.8 Estimated GFR (Non- 104.2 BUN/Creatinine Ratio 25.1 Random Glucose 89 mg/dl Osmolality 275 mOsm/kg Calcium Level 8.3 mg/dl Phosphorus Level 2.6 mg/dl Magnesium Level 2.0 mg/dl Test 05/25/17 05:39 Bedside Glucose 101 mg/dl Assessment and Plan Patient is a 77 y/o F Hx HTN, HPL, hypothyroidism, carotid stenosis. The pt was undergoing evaluation for a L CEA. She had a stress echo on the day of admission, however, the initial echocardiogram revealed a significant pericardial effusion. Furthermore, she claims she has had a 25 lb wt loss over the past few months and is to consult Pulmonology on the for a suspicious L upper lobe 8mm lung mass. She did not c/o CP, N/V, or fevers. She has been SOB for > 2 wks. She was tachycardic with a borderline low BP at the ad setter's office and was therefore referred to the ER. Her vital signs have stabilized following IV hydration. She underwent pericardial window on and biopsy of a intrathoracic lymph node. The pt also states that she has had excessive pain in her lower back and radiating down her l leg which has been keeping her up at night. 1. pericardial effusion, s/p pericardial window by Dr. Zhou - POD #2 - Fluid grossly bloody - highly concerning for malignancy in light of the JAELYN lung mass. They removed 300-350cc. Awaiting cytologies and fluid studies/cultures although latter thus far negative. She was in ICU over the weekend with pericardial drain in place -stable for transfer to surgical floor today -Chest tube to remain in place and remove as per thoracic surgery when ready -Pain control with morphine and Tylenol, oxycodone 2. JAELYN lung mass - highly suspicious for malignancy - in light of #1 this may be a primary lung malignancy. Await pericardial biopsy and fluid cytologies. If not conclusive for malignancy , will need by CT of the lung nodule 3. hypotension - 2nd to #1 - resolved. A line removed today 4. COPD/acute hypoxic respiratory failure stable, continue nebs/inhalers/ supportive care. -Continue on oxygen mask and/or nasal cannula as needed keep pulse ox greater than 92% 5. hyponatremia - ongoing but stable with sodium 133; suspect low-grade SIADH from malignancy? serum osm, urine osm, urine Na consistent with this -Follow PRP 6. moderate-severe protein calorie malnutrition - highly suspicious for malignancy - see above. 7. hypothyroidism - TSH in 02/2017 was wnl; continue synthroid same dose. 8. PAD with ICA stenosis on left - noted. Cont statin, asa when ok with thoracic surgery. 9. HTN -home BP med fosinopril on hold due to previous hypotension -Restart when blood pressure is consistently improved 10. hyperlipidemia -continue statin. 11. DVT proph - SCDs for now in light of #1. Defer chemical means to thoracic surgery/critical care. 12. FEN - diet as tolerated, BMP in am. 13. Left sided lower back pain/sciatica/greater trochanteric bursitis-present on admission-stable and improved with pain meds for chest tube -Consider further workup as an outpatient disposition-transfer to surgical floor Full code
[2017-05-25] MEDS ORDERED: ENOXAPARIN 40 MG/0.4 ML SYR SQ ONE (12:15)
[2017-05-25] MEDS: OXYCODONE HCL IR 5 MG TAB (IMMEDIATE RELEASE) PO PRN (13:41)
[2017-05-25] MEDS: MoRPHine SULFATE 2 MG/ML CARP IV PRN (14:41)
[2017-05-25] MEDS: SIMVASTATIN 80 MG TAB PO SCH (20:45)
[2017-05-25] MEDS: MAGNESIUM HYDROXIDE SUSP 30 ML UDC PO PRN (23:54)
[2017-05-26] VITALS (10 sets, daily range): BP systolic 119–163; BP diastolic 73–83; PULSE 90–104; TEMP 36.4–37.4; O2SAT 84–93
[2017-05-26 06:02] LABS: BASO % 0.1 %; BASO ABS # 0.01 K/uL (0-0.2); EOS % 1.4 %; EOS ABS # 0.11 K/uL (0-0.5); HEMATOCRIT 32.6 % (37-47); HEMOGLOBIN 10.3 g/dL (12.0-16.0); IG# 0.02 K/uL (0.00-0.02); LYMPH ABS # 1.55 K/uL (1.2-3.4); MEAN CELL VOLUME 88.8 fL (80-100); MEAN CORPUSCULAR HEMOGLOBIN 28.1 pg (25-34); MEAN CORPUSCULAR HGB CONC 31.6 g/dl (32-36); MEAN PLATELET VOLUME 9.2 fL (7.4-10.4); MONO % 14.5 %; MONO ABS # 1.12 K/uL (0.11-0.59); NEUT % 63.7 %; NEUT ABS # 4.93 K/uL (1.4-6.5); PLATELET COUNT 301 K/uL (130-400); RED CELL DISTRIBUTION WIDTH CV 13.8 % (11.5-14.5); RED CELL DISTRIBUTION WIDTH SD 44.7 fL (36.4-46.3); WHITE BLOOD COUNT 7.74 K/uL (4.8-10.8)
[2017-05-26] MEDS: LEVOTHYROXINE 50 MCG TAB PO SCH (06:17)
[2017-05-26] MEDS: OXYCODONE HCL IR 5 MG TAB (IMMEDIATE RELEASE) PO PRN ×3 (06:20→20:26)
[2017-05-26 06:26] LABS: CALCIUM 8.7 mg/dl (8.5-10.1); CREATININE 0.42 mg/dl (0.60-1.20); POTASSIUM 3.3 mmol/L (3.5-5.1)
--- NOTE | 2017-05-26 07:37 | DIAGNOSTIC IMAGING REPORT ---
CHEST ONE VIEW PORTABLE CLINICAL HISTORY: 77 years-old Female presenting with right chest tube. TECHNIQUE: Portable upright AP view of the chest was obtained. COMPARISON: 05/24/2017. FINDINGS: Atherosclerosis of aortic arch. Cardiac silhouette enlarged. Pulmonary vascular prominence. Hazy central and basilar predominant opacities. Elevation of the left hemidiaphragm, unchanged. Small left pleural effusion. Large bore right pleural drain terminates in the mid right hemithorax. No large pneumothorax. Decreased right basilar opacity. Osseous structures normal. Upper abdomen normal. IMPRESSION: 1. Unchanged position of the large bore right pleural drain. No pneumothorax. 2. Decreased right basilar opacity. 3. Cardiomegaly with concern for volume overload and mild pulmonary edema. 4. Left pleural effusion. Electronically signed by: Boyd Bolivar M.D. 05/26/2017 7:36 AM Dictated Date/Time: 05/26/2017 7:34 AM
--- NOTE | 2017-05-26 07:52 | Anesthesiology Progress Note ---
Anesthesia Post Op Note Date & Time May 26, 2017 at 07:51 Vital Signs Vital Signs Past 12 Hours Date Time Temp Pulse Resp B/P (MAP) Pulse Ox O2 Delivery O2 Flow Rate FiO2 05/26/17 04:53 104 92 Mask 2.0 05/25/17 23:45 Oxymask 2.0 05/25/17 23:01 37.4 99 16 156/78 (104) 92 Mask 2.0 Notes Mental Status: alert / awake / arousable, participated in evaluation Pt Amnestic to Procedure: Yes Nausea / Vomiting: adequately controlled Pain: adequately controlled Airway Patency, RR, SpO2: stable & adequate BP & HR: stable & adequate Hydration State: stable & adequate Anesthetic Complications: no major complications apparent
[2017-05-26] MEDS ORDERED: POTASSIUM CHLORIDE 10 MEQ TABCR PO STA (08:15)
[2017-05-26] MEDS: ACETAMINOPHEN IV 1,000 MG in EMPTY BAG 0 ML IV SCH ×3 (08:32→23:38)
--- NOTE | 2017-05-26 08:39 | DIAGNOSTIC IMAGING REPORT ---
CHEST ONE VIEW PORTABLE HISTORY: Chest tube removal COMPARISON: Chest 05/26/2017. FINDINGS: Interval removal of the right-sided chest tube. Suspect a tiny right apical pneumothorax. The heart remains enlarged. Mild elevation the left hemidiaphragm and left basilar density/effusion persists. Diffuse interstitial thickening, unchanged. No new focal lung consolidations. IMPRESSION: Interval removal of the right-sided chest tube. Suspect a tiny right apical pneumothorax. Electronically signed by: Steven Mirza M.D. 05/26/2017 8:38 AM Dictated Date/Time: 05/26/2017 8:34 AM
[2017-05-26] MEDS: POLYETHYLENE (MIRALAX) 17 GM PACK PO SCH (08:57)
[2017-05-26] MEDS: BOOST VANILLA PO SCH ×2 (08:57→17:29)
[2017-05-26] MEDS: ENOXAPARIN 40 MG/0.4 ML SYR SQ SCH (08:58)
[2017-05-26] MEDS: CEROVITE ADV FORMULA TAB PO SCH (08:58)
--- NOTE | 2017-05-26 09:10 | SURGERY PROGRESS NOTE ---
DATE: 05/26/2017 Ms. Dunn looks great today. She has been ambulating in the hallway. She is down to 2 liters of O2 with 91% sats. She does require a mask at night. Her vital signs have been stable. All of her path of course is pending. She appeared to be pretty comfortable actually. I removed her chest tube to drain very little. It is serous fluid. Her incisions are all clean. Her lungs sound good. We did get an x-ray after we removed the chest tube today and it looks quite good on the right side. I really do not see a pneumothorax. Her left hemidiaphragm of course remains elevated. She has no evidence of pneumothorax despite the radiology reading and has no evidence of an effusion or infiltrate on the right. We are going to obtain a bone scan. The patient is having low back pain and left greater trochanteric pain which I believe are probably due to bone mets given her history. Hopefully, the cytology will be out later today.
[2017-05-26] MEDS: MoRPHine SULFATE 2 MG/ML CARP IV PRN (09:12)
--- NOTE | 2017-05-26 17:09 | Hospitalist Progress Note ---
Hospitalist Progress Note Date of Service May 26, 2017. Subjective Pt evaluation today including: conversation w/ patient, conversation w/ family Patient very tired, but denies chest pain, denies shortness of breath. She is eating and drinking, requesting a laxative as she has not had a bowel movement in days. Still has pain in the left hip. All Other Systems: Reviewed and Negative Objective Vital Signs Date Time Temp Pulse Resp B/P (MAP) Pulse Ox O2 Delivery O2 Flow Rate FiO2 05/26/17 16:08 37.4 90 18 158/83 (108) 93 Nasal Cannula 2.0 05/26/17 13:24 36.4 98 16 119/73 (88) 91 Nasal Cannula 2.0 05/26/17 08:47 91 Nasal Cannula 2.0 05/26/17 08:22 36.7 95 14 144/78 (100) 91 Nasal Cannula 2.0 05/26/17 08:10 91 Nasal Cannula 2.0 05/26/17 04:53 104 92 Mask 2.0 05/25/17 23:45 Oxymask 2.0 05/25/17 23:01 37.4 99 16 156/78 (104) 92 Mask 2.0 05/25/17 18:57 92 Nasal Cannula 2.0 05/25/17 18:55 75 Room Air Physical Exam General Appearance: no apparent distress, + thin Eyes: normal inspection, sclerae normal ENT: hearing grossly normal, pharynx normal Neck: trachea midline Respiratory/Chest: no respiratory distress, no accessory muscle use, + decreased breath sounds (At the left base, some crackles at the right base, otherwise clear) Cardiovascular: regular rate, rhythm, no edema, no gallop, no murmur Abdomen: normal bowel sounds, non tender, soft Extremities: non-tender, normal inspection, no pedal edema, no calf tenderness Neurologic/Psychiatric: alert, normal mood/affect, oriented x 3 Skin: normal color, warm/dry, no rash Laboratory Results Last 24 Hours Test 05/26/17 05:18 White Blood Count 7.74 K/uL Red Blood Count 3.67 M/uL Hemoglobin 10.3 g/dL Hematocrit 32.6 % Mean Corpuscular Volume 88.8 fL Mean Corpuscular Hemoglobin 28.1 pg Mean Corpuscular Hemoglobin Concent 31.6 g/dl Platelet Count 301 K/uL Mean Platelet Volume 9.2 fL Neutrophils (%) (Auto) 63.7 % Lymphocytes (%) (Auto) 20.0 % Monocytes (%) (Auto) 14.5 % Eosinophils (%) (Auto) 1.4 % Basophils (%) (Auto) 0.1 % Neutrophils # (Auto) 4.93 K/uL Lymphocytes # (Auto) 1.55 K/uL Monocytes # (Auto) 1.12 K/uL Eosinophils # (Auto) 0.11 K/uL Basophils # (Auto) 0.01 K/uL RDW Standard Deviation 44.7 fL RDW Coefficient of Variation 13.8 % Immature Granulocyte % (Auto) 0.3 % Immature Granulocyte # (Auto) 0.02 K/uL Sodium Level 137 mmol/L Potassium Level 3.3 mmol/L Chloride Level 100 mmol/L Carbon Dioxide Level 30 mmol/L Anion Gap 7.0 mmol/L Blood Urea Nitrogen 10 mg/dl Creatinine 0.42 mg/dl Est Creatinine Clear Calc Drug Dose 107.4 ml/min Estimated GFR () 113.8 Estimated GFR (Non- 98.2 BUN/Creatinine Ratio 23.9 Random Glucose 109 mg/dl Calcium Level 8.7 mg/dl Magnesium Level 2.2 mg/dl Thyroid Stimulating Hormone (TSH) 0.718 uIu/ml Assessment and Plan Patient is a 77 y/o F Hx HTN, HPL, hypothyroidism, carotid stenosis. The pt was undergoing evaluation for a L CEA. She had a stress echo on the day of admission, however, the initial echocardiogram revealed a significant pericardial effusion. Furthermore, she has had a 25 lb wt loss over the past few months and has a known suspicious L upper lobe 8mm lung mass. She did not c /o CP, N/V, or fevers. She has been SOB for > 2 wks. She was tachycardic with a borderline low BP at the crime prevention police officer's office and was therefore referred to the ER. Her vital signs have stabilized following IV hydration. She underwent pericardial window on 05/23 and biopsy of a intrathoracic lymph node. The pt also states that she has had excessive pain in her lower back and radiating down her l leg which has been keeping her up at night. 1. pericardial effusion, s/p pericardial window by Dr. Zhou - POD #3 - chest tube removed today and repeat chest x-ray looks good Fluid grossly bloody - highly concerning for malignancy in light of the JAELYN lung mass. 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 JAELYN lung mass - highly suspicious for malignancy - in light of #1 this is most likely a primary lung malignancy. 3. hypotension - 2nd to #1 - resolved. A line removed prior to transfer out of the ICU 4. COPD/acute hypoxic respiratory failure stable, continue nebs/inhalers/ supportive care. -Continue on oxygen mask and/or nasal cannula as needed keep pulse ox greater than 92% 5. hyponatremia -resolved; suspect low-grade SIADH from malignancy? serum osm, urine osm, urine Na consistent with this -Follow PRP 6. moderate-severe protein calorie malnutrition -likely secondary to malignancy 7. hypothyroidism - TSH in 02/2017 was wnl; continue synthroid same dose. 8. PAD with ICA stenosis on left - noted. Cont statin, asa when ok with thoracic surgery. 9. HTN -home BP med fosinopril on hold due to previous hypotension -Restart when blood pressure is consistently improved-perhaps tomorrow 10. hyperlipidemia -continue statin. Left sided lower back pain/sciatica/greater trochanteric bursitis-present on admission-stable and improved with pain meds for chest tube -Consider further workup as an outpatient DVT proph - SCDs only, can start heparin subcu when okay with surgery disposition-remain in hospital likely 1 more day, PT/OT evaluations Full code
[2017-05-26] MEDS: MAGNESIUM HYDROXIDE SUSP 30 ML UDC PO PRN (17:29)
--- NOTE | 2017-05-26 18:44 | DIAGNOSTIC IMAGING REPORT ---
BONE SCAN WHOLE BODY HISTORY: 77 years-old Female ? mets patient presents with acute back pain, lung mass concerning for neoplasm and questioned bony metastasis. COMPARISON: CT chest 05/23/2017, CT abdomen and pelvis 02/25/2017. TECHNIQUE: Whole-body bone scan was obtained with anterior and posterior planar images. 27.1 mCi technetium 99 MDP was administered via the right hand. FINDINGS: Focal accumulation of radiotracer about the right hand is likely secondary to injection site. Focal area of moderate indeterminate radiotracer uptake is noted about the T9 vertebral segment with additional patchy areas of likely degenerative mild radiotracer uptake seen within the distribution of the facet joints throughout the thoracic and lumbar spine. Focal areas of moderate radiotracer uptake are seen about several bilateral ribs, notably involving the lateral left third rib, posterior right 9th rib and posterior lateral left sixth, seventh and eighth ribs. On comparison CT chest 05/23/2017, ill-defined areas of sclerosis without definite fracture well-defined lesion noted involving the anterolateral left third and lateral fourth ribs. Moderate tracer uptake is also noted about the left proximal femur in the distribution of the intertrochanteric region and proximal diaphysis. Mild uptake about the shoulders, knees and right greater than left feet suggest degenerative changes. Ill-defined areas of mildly increased tracer uptake are seen about the sternum, nonspecific. IMPRESSION: 1. Moderate focal radiotracer uptake involving the T9 vertebral body without correlate fracture or bone lesion seen on comparison CT chest 05/23/2017 is suspicious for radiographically occult bony metastasis. Follow-up recommended. 2. Additional multifocal areas of abnormal radiotracer uptake about several ribs are also suspicious for metastasis. 3. Intense radiotracer uptake about the left femur intertrochanteric region suggests post-traumatic etiology or metastasis. Correlation with left hip radiographs recommended. The above report was generated using voice recognition software. It may contain grammatical, syntax or spelling errors. Electronically signed by: Jed Michael M.D. 05/26/2017 6:43 PM Dictated Date/Time: 05/26/2017 3:16 PM
[2017-05-26] MEDS: SIMVASTATIN 80 MG TAB PO SCH (20:27)
[2017-05-27 04:23] VITALS: O2SAT 79
[2017-05-27 04:27] VITALS: O2SAT 94
[2017-05-27] MEDS: OXYCODONE HCL IR 5 MG TAB (IMMEDIATE RELEASE) PO PRN ×3 (05:39→12:17)
[2017-05-27] MEDS: LEVOTHYROXINE 50 MCG TAB PO SCH (05:39)
[2017-05-27] MEDS: MoRPHine SULFATE 4 MG/ML 1 ML CARP\\VIAL IV PRN (06:41)
[2017-05-27 08:00] VITALS: O2SAT 93
[2017-05-27 08:32] VITALS: BP 150/73; PULSE 96; TEMP 37.3; O2SAT 93
[2017-05-27] MEDS: POLYETHYLENE (MIRALAX) 17 GM PACK PO SCH (08:43)
[2017-05-27] MEDS ORDERED: NURSING VERBAL MED ORDER ONE ×2 (08:45→18:30)
[2017-05-27] MEDS: ACETAMINOPHEN IV 1,000 MG in EMPTY BAG 0 ML IV SCH ×2 (08:47→15:52)
[2017-05-27] MEDS: BOOST VANILLA PO SCH ×2 (08:53→17:45)
[2017-05-27] MEDS: ENOXAPARIN 40 MG/0.4 ML SYR SQ SCH (08:54)
[2017-05-27] MEDS: CEROVITE ADV FORMULA TAB PO SCH (08:54)
[2017-05-27] MEDS ORDERED: FENTANYL 12 MCG/HR TDSY TD SCH (09:00)
[2017-05-27 10:19] LABS: CALCIUM 8.3 mg/dl (8.5-10.1); CREATININE 0.4 mg/dl (0.60-1.20); POTASSIUM 3.5 mmol/L (3.5-5.1)
--- NOTE | 2017-05-27 11:41 | Oncology Consultation ---
Oncology/Heme Consultation Date of Consultation: May 27, 2017. Attending Physician: Taniya Erickson MD Reason for Consultation: New diagnosis of adenocarcinoma of the lung History of Present Illness Ms. Dunn is a 77-year-old female he describes having bone pain infecting the left hip as well as her lower back. She states that she was also having some rib discomfort that led to x-rays. His x-rays would reflect an enlarging left upper lobe nodule and now progressive pericardial effusions when compared to CTs done in the fairly recently. Abdominal CT done in February was unremarkable. A bone scan done during this admission we demonstrate changes indicative of metastatic disease particularly the ribs and mid thoracic spine as well as the left femur. I met her today with her daughter who is up from [place]. The patient lives in [place] and has 2 sons that live nearby. She apparently has lost about 25-30 pounds in the past 3-4 months. While she was here a pericardial window has been done. The chest tube was just recently removed. We are asked to comment about further therapy. I understand radiation therapy has also been consulted. Patient pete a longtime smoking history. Past Medical/Surgical History Metastatic adenocarcinoma of the lung Pericardial effusion Bone pain most likely secondary to metastatic disease Family History Diabetes mellitus Hypertension Social History Smoking Status: Current Every Day Smoker Smokeless Tobacco Use: No Drug Use: none Marital Status: Housing Status: lives with significant other Occupation Status: unemployed Allergies Coded Allergies: No Known Allergies (Verified , NONE, 05/22/17) Home Medications Scheduled Aspirin (Aspirin Ec), 325 MG PO DAILY Fosinopril Sodium (Monopril), 40 MG PO DAILY Levothyroxine Sodium (Levothyroxine Sodium), 1 TAB PO DAILY Multiple Minerals W/ Vitamins (Citracal Plus), 1 TAB PO DAILY Multiple Vitamins W/ Minerals (Centrum), 1 TAB PO DAILY Simvastatin (Zocor), 80 MG PO QPM Current Inpatient Medications Current Inpatient Medications Medications (Trade) Dose Ordered Sig/[place] Route Start Time Stop Time Status Last Admin Dose Admin Levothyroxine Sodium (Synthroid Tab) 50 mcg DAILYBB PO 05/23/17 06:00 06/22/17 06:59 05/27/17 05:39 50 MCG Simvastatin (Zocor Tab) 80 mg QPM PO 05/22/17 21:00 06/21/17 20:59 05/26/17 20:27 80 MG Al Hydrox/Mg Hydrox/Simethicone (Maalox Max Susp) 15 ml Q4H PRN PO 05/22/17 20:30 06/21/17 20:29 Magnesium Hydroxide (Milk Of Magnesia Susp) 30 ml Q12H PRN PO 05/22/17 20:30 06/21/17 20:29 05/26/17 17:29 30 ML Ondansetron HCl (Zofran Inj) 4 mg Q6H PRN IV 05/22/17 20:30 06/21/17 20:29 Morphine Sulfate (MoRPHine SULFATE INJ) 2 mg Q30M PRN IV 05/22/17 20:30 06/05/17 20:29 05/26/17 09:12 2 MG Morphine Sulfate (MoRPHine SULFATE INJ) 3 mg Q4H PRN IV 05/22/17 20:30 06/05/17 20:29 05/27/17 06:41 3 MG Albuterol/ Ipratropium (Duoneb) 3 ml Q6H PRN INH 05/22/17 20:30 06/21/17 20:29 Acetaminophen 1000 mg/Empty Bag 100 ml @ 400 mls/hr Q8H IV 05/23/17 16:00 06/22/17 15:59 05/27/17 08:47 400 MLS/HR Levalbuterol (Xopenex 1.25MG/ 3ML Neb) 1.25 mg Q6R PRN INH 05/23/17 18:00 06/22/17 17:59 Polyethylene (Miralax Powder Packet) 17 gm DAILY PO 05/25/17 09:00 06/21/17 20:29 05/26/17 08:57 17 GM Multivitamins/ Minerals (Multivitamin W/ Minerals Tab) 1 tab QAM PO 05/25/17 09:00 06/24/17 08:59 05/27/17 08:54 1 TAB Enteral Nutritional Formula (Boost) 1 can BIDM PO 05/25/17 07:15 06/24/17 07:14 05/27/17 08:53 1 CAN Enoxaparin Sodium (Lovenox Inj) 40 mg QAM SQ 05/26/17 09:00 06/25/17 08:59 05/27/17 08:54 40 MG Ketorolac Tromethamine (Toradol Inj) 15 mg Q6H PRN IV. 05/27/17 08:30 06/01/17 08:29 Oxycodone HCl (Roxicodone Immediate Rel Tab) `1-2 tabs for pain 1 tab ... Q3HWA PRN PO 05/27/17 08:30 06/10/17 08:29 05/27/17 08:46 10 MG Fentanyl (Duragesic Patch) 12 mcg Q72H TD 05/27/17 09:00 06/10/17 08:59 05/27/17 09:00 12 MCG Miscellaneous Information (Check Fentanyl Patch Placement) 1 ea QS N/A 05/27/17 16:00 06/26/17 15:59 Miscellaneous (Fentanyl Patch Remove & Waste) 1 ea Q3D@0859 N/A 05/30/17 08:59 06/29/17 08:58 Review of Systems Constitutional: Negative for night sweats, or fever Eyes: Negative for event change of vision ENT: Negative for epistaxis, nasal discharge, sore throat, or deafness Cardiovascular: Negative for recent chest pain, palpitations, dizziness, diaphoresis. Again she does review with me pain that I suspect is more rib pain in the sternal area. Respiratory: Negative for new shortness of breath,hemoptysis, or purulent cough Gastrointestinal: Negative for diarrhea, hematemesis, melena, nausea, vomiting , or dyspepsia Integumentary (skin): Negative for rash or jaundice discoloration Genitourinary: Negative for urinary frequency, hematuria, or dysuria Neurological: Negative for weakness, seizure activity, headache, or dizziness Lymphatic/Hematologic: Negative for petechiae, bleeding or new adenopathy Musculoskeletal: Positive for left hip and back pain. The area of the back that bothers her is actually more lower thoraic area to lumbar spine Allergic/Immunologic: Negative for unusual rash or pruritis. Physical Exam Date Time Temp Pulse Resp B/P (MAP) Pulse Ox O2 Delivery O2 Flow Rate FiO2 05/27/17 08:32 37.3 96 16 150/73 (98) 93 Nasal Cannula 2.0 05/27/17 08:00 93 Oxymask 05/27/17 04:27 94 Oxymask 2.0 05/27/17 04:23 79 Room Air 05/26/17 23:30 Oxymask 2.0 05/26/17 23:20 37.2 96 18 163/75 (104) 93 Oxymask 2.0 05/26/17 20:30 36.6 05/26/17 19:03 92 Nasal Cannula 2.0 05/26/17 18:55 84 Room Air 05/26/17 16:08 37.4 90 18 158/83 (108) 93 Nasal Cannula 2.0 05/26/17 15:35 Nasal Cannula 2.0 Oxymask 05/26/17 13:24 36.4 98 16 119/73 (88) 91 Nasal Cannula 2.0 Constitutional: vitals are stable. Eyes: Eyes are KARUNA EOMI without conjuctival erythema or icterus. ENT: External examination was negative for masses. Neck: Negative for masses or palpable thyromegaly Respiratory: Lung sounds were generally clear but decreased bilaterally Cardiovascular: Heart was RRR without significant murmur, gallops aoe rubs Gastrointestinal: No palpable hepatic or splenomegaly. The abdomen was soft with normal bowel sounds. Lymphatic system: there was no palpable peripheral lymphadenopathy Musculoskeletal System: The musculoskeletal system seemed concordant with age. There is a rather hard nodule located subcutaneously in the midthoracic to area at around T7 on her back. Skin: The skin was negative for jaundice. Neurologic exam: The exam was negative for any focal findings. Deep tendon reflexes were equal and symmetrical. Psychiatric exam: Was essentially negative with normal mood and effect. Breast exam: Done with patient permission was negative for palpable masses or corollary supraclavicular or axillary palpable adenopathy. Exam was witnessed by either a relative, sausage stringer, or clinic staff. Extremities: negative for edema Laboratory Results Last 24 Hours Test 05/27/17 09:33 Sodium Level 133 mmol/L Potassium Level 3.5 mmol/L Chloride Level 99 mmol/L Carbon Dioxide Level 27 mmol/L Anion Gap 7.0 mmol/L Blood Urea Nitrogen 9 mg/dl Creatinine 0.40 mg/dl Est Creatinine Clear Calc Drug Dose 112.7 ml/min Estimated GFR () 115.6 Estimated GFR (Non- 99.8 BUN/Creatinine Ratio 22.2 Random Glucose 166 mg/dl Calcium Level 8.3 mg/dl Magnesium Level 2.0 mg/dl Assessment & Plan Metastatic lung carcinoma most likely adenocarcinoma. The pericardial fluid has been sent for the usual biomarkers. She has had a pericardial window. Radiation therapy will be seeing the patient and I suspect radiation therapy will be ongoing to the left hip and potentially the back. We probably should do dedicated films of the left hip as well as the thoracic and lumbar spine. Following radiation therapy results from the biomarkers will be available and then systemic therapy options can be reviewed with her. I will arrange for follow-up in our clinic to occur in 7-10 days. I did leave a card behind. I suggested to the patient and her daughter that they do review her current living arrangements. She is a delightful lady and we look forward to helping in her care.
--- NOTE | 2017-05-27 13:38 | SURGERY PROGRESS NOTE ---
DATE: 05/27/2017 SUBJECTIVE: Not surprisingly, the cytology on her pericardial fluid is positive for adenocarcinoma and her TTF-1 is positive, which shows this to be of a lung origin. She also has an evidence on bone scan of multiple metastases. She is symptomatic from these. She was having quite a bit of pain when I saw her earlier this morning. We put her on Toradol parenterally and also put her on a Duragesic patch and she is much more comfortable this afternoon. She was seen by Dr. Leblanc, and the plan will be for her to get radiation therapy and then Dr. Leblanc will be following her up in the office in a next week to 10 days. I was quite happy to see that she felt much better with changing her pain regimen. MTDD
--- NOTE | 2017-05-27 13:51 | DIAGNOSTIC IMAGING REPORT ---
L HIP UNILATERAL 2 VIEWS CLINICAL HISTORY: 77 years-old Female presenting with Painful left hip Dx lung cancer. TECHNIQUE: Frontal and frog-leg lateral views of the left hip were obtained. COMPARISON: CT from 02/25/2017. FINDINGS: Left hip joint congruent. Medial joint space loss as on prior exam. Osteophytosis. No subchondral sclerosis or cystic change is radiographically apparent. No acute fracture or malalignment. Osteopenia may be present. No destructive osseous lesion is radiographically apparent. Visualized portion of the bony pelvis intact. IMPRESSION: 1. No radiographic evidence of a destructive osseous lesion to suggest metastatic disease. 2. Mild to moderate degenerative changes of the left hip. Electronically signed by: Boyd Bolivar M.D. 05/27/2017 1:50 PM Dictated Date/Time: 05/27/2017 1:49 PM
--- NOTE | 2017-05-27 15:40 | Radiation Oncology Consult ---
Radiation Oncology Consult Date / Reason May 27, 2017. Dr. Leblanc as requested that we see his patient Ms. Dunn for evaluation and discussion of the role of palliative radiation following diagnosis of metastatic lung cancer to bone. Physicians Medical Oncologist: Dr. Hany Leblanc Surgeon: Dr. David Blakely Diagnosis (1) Adenocarcinoma of lung, stage 4 Stage: IV History of Present Illness Is a 77-year-old female who has a long smoking history of over 60 years smoking approximately one half to three-quarter packs a day until admission. The patient describes the onset of chest pain in early February that was initially thought due to an elevated diaphragm. This pain has gradually progressed in severity. She presented to the ED department on May 22 with complaint of increasing pain. She has had a 25 pound weight loss over the past few months. Recent x-rays of showing a suspicious left upper lobe lung mass. 02/17/2017. Rib films were performed of the left chest. IMPRESSION: 1. No displaced left rib fracture. 2. Elevated left hemidiaphragm with left basilar atelectasis. 3. Otherwise no evidence of acute cardiopulmonary disease. 02/25/2017. CT scan of the abdomen and pelvis. IMPRESSION: 1. Left hemidiaphragm elevation with resulting extensive left lower lobe and lingular atelectasis. This is of uncertain etiology and uncertain clinical significance. 2. Extensive atherosclerosis with significant narrowing of the abdominal aorta near the bifurcation. The degree of narrowing depicted on this exam is likely exaggerated secondary to the presence of extensive calcified atherosclerotic plaque. 04/14/2017. CT angiogram of the neck with prior history of carotid artery stenosis on the right. IMPRESSION: 1. Advanced emphysema. There is a 1.0 cm spiculated nodule in the left upper lobe that is highly concerning for primary pulmonary neoplasm. Follow-up with a dedicated chest CT is recommended for further assessment. 2. The right internal carotid arterial system is widely patent. 3. There is high-grade stenosis with near complete occlusion identified at the origin of the left internal carotid artery. The remainder of the left internal carotid artery is patent. 4. There is high-grade stenosis at the origin of the left vertebral artery. The vertebral arteries are otherwise widely patent. 5. High-grade stenosis is suggested the origins of the innominate and left subclavian arteries. 6. Suspect occlusion at the origin of the left external carotid artery. 3. Indeterminate lesion in segment 6 of the liver. 4. 10 mm left adrenal gland nodule, indeterminate. 04/25/2017. CT scan of the chest without contrast IMPRESSION: 1. Solid 8 mm pulmonary nodule in the left upper lobe is suspicious for neoplasm. Follow-up per Fleischner Society 2017 criteria below. 2. Irregular nodular opacity in the right upper lobe. Attention on follow-up. This may be inflammatory in etiology rather than neoplastic. 3. Emphysema. 4. Trace pericardial effusion. 05/23/2017. Patient admitted for further workup of progressive back pain. CT scan of the chest without contrast performed. IMPRESSION: 1. Slight interval increase in size of the solid left upper lobe pulmonary nodule. This remains suspicious for neoplasm. Endobronchial biopsy to be considered versus PET/CT. 2. Emphysema. 3. Irregular subpleural abnormality in the right upper lobe is less focal on the current exam, possibly post inflammatory or scarring. 4. Bibasilar atelectasis greater on the left. 5. Increasing size of the now moderate pericardial effusion. This is of uncertain etiology. 05/23/2017. Patient seen in referral by Dr. David Zhou. Patient noted to have pericardial thickening. A pericardial window was created and pericardial fluid was removed along with pleural fluid. Biopsy of the pericardium and lymph nodes were also taken with results pending. FINAL DIAGNOSIS PERICARDIAL FLUID, PERICARDIOCENTESIS: METASTATIC CARCINOMA WITH FEATURES CONSISTENT WITH LUNG ADENOCARCINOMA. SEE MICROSCOPIC DESCRIPTION. FINAL DIAGNOSIS PLEURAL FLUID, PLEURAL CAVITY, WASHING: ATYPICAL CELLS CONSISTENT WITH METASTATIC CARCINOMA. SEE MICROSCOPIC DESCRIPTION. 05/26/2017. Whole body bone scan performed showing evidence of diffuse metastatic bony disease. IMPRESSION: 1. Moderate focal radiotracer uptake involving the T9 vertebral body without correlate fracture or bone lesion seen on comparison CT chest 05/23/2017 is suspicious for radiographically occult bony metastasis. Follow-up recommended. 2. Additional multifocal areas of abnormal radiotracer uptake about several ribs are also suspicious for metastasis. 3. Intense radiotracer uptake about the left femur intertrochanteric region suggests post-traumatic etiology or metastasis. Correlation with left hip radiographs recommended. 05/27/2017. Left unilateral hip film performed. IMPRESSION: 1. No radiographic evidence of a destructive osseous lesion to suggest metastatic disease. 2. Mild to moderate degenerative changes of the left hip. 05/27/2017. Referral request placed for radiation oncology. Past History Past Medical/Surgical History: Arthritis, Osteoporosis, High Cholesterol, Hypertension, Thyroid Disease Surgical History Surgeries: Yes Social History Smoking Status: Current Every Day Smoker Hx Tobacco Use In Past Year?: Yes Estimated Cigarettes Per Day: 10 Do You Dip or Chew Tobacco: No Hx Alcohol Use: No Hx Substance Use : No Allergies Coded Allergies: No Known Allergies (Verified , NONE, 05/22/17) Home Medications Scheduled Aspirin (Aspirin Ec), 325 MG PO DAILY Fosinopril Sodium (Monopril), 40 MG PO DAILY Levothyroxine Sodium (Levothyroxine Sodium), 1 TAB PO DAILY Multiple Minerals W/ Vitamins (Citracal Plus), 1 TAB PO DAILY Multiple Vitamins W/ Minerals (Centrum), 1 TAB PO DAILY Simvastatin (Zocor), 80 MG PO QPM Review of Systems Ear/Hearing: Ear Side: Bilateral Hearing Ability: Normal Hearing Aid: None Edema: Present?: No Location Body Site Modifier: Bilateral Physical Exam Height: 5 (Feet) 7.00 (Inches) 170.2 (Centimeters) 1.7018 (Meters) Weight: 141 (Pounds) 8.6 (Ounces) 64.200 (Kilograms) 85755.000 (Grams) Date Time Temp Pulse Resp B/P (MAP) Pulse Ox O2 Delivery O2 Flow Rate FiO2 05/27/17 08:32 37.3 96 16 150/73 (98) 93 Nasal Cannula 2.0 05/27/17 08:00 93 Oxymask 05/27/17 04:27 94 Oxymask 2.0 05/27/17 04:23 79 Room Air 05/26/17 23:30 Oxymask 2.0 05/26/17 23:20 37.2 96 18 163/75 (104) 93 Oxymask 2.0 05/26/17 20:30 36.6 05/26/17 19:03 92 Nasal Cannula 2.0 05/26/17 18:55 84 Room Air 05/26/17 16:08 37.4 90 18 158/83 (108) 93 Nasal Cannula 2.0 05/26/17 15:35 Nasal Cannula 2.0 Oxymask General Appearance: + moderate distress (The patient was experiencing moderate to severe back pain radiating into the left hip. She is recently been placed on narcotic medication which has given her near complete relief from pain.), + thin Head: normocephalic, atraumatic ENT: hearing grossly normal, pharynx normal Neck: supple, no adenopathy, thyroid normal, + pertinent finding Respiratory/Chest: no respiratory distress, + decreased breath sounds Cardiovascular: regular rate, rhythm, no murmur Abdomen/GI: normal bowel sounds, non tender, soft, no organomegaly Back: no CVA tenderness, normal range of motion, + pertinent finding (There were 2 paravertebral subcutaneous nodules 1 at approximately T9 measuring 2 cm and 1 at approximately T7 measuring half a centimeter. 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 Now on pain medication she rates her pain as a 1.) Initial Pain Intensity: 7.0 Level of Consciousness: Spontaneously Alert Relief Measures: Medication - Oral Pain Medication Comment: routine IV pain medication administered Pain Intervention: See [facility] Pain Management Plan The patient has been started on narcotics with a entry dose of fentanyl patch at 12 mcg/min and oxycodone codon. We will plan palliative radiation to the areas of bony pain with external radiation also to decrease pain Laboratory Laboratory Results: were reviewed, and pertinent findings noted in [facility] Pathology Pathology Results: were reviewed, and pertinent findings noted in HPI Imaging Imaging Studies: were reviewed, and pertinent findings noted in HPI Treatment Options I discussed the following treatment options with Ms. Dunn. 1. I discussed the use of palliative radiation to treat the left hip and the appropriate T-spine, likely T9. These results are pending the upcoming MRI of the thoracic lumbar spine. These imaging studies will be very helpful in defining level of disease to guide in our treatment planning. Assessment & Recommendations In summary Ms. Dunn is a 77-year-old female with a long smoking history who was recently found to have increasing back pain radiating into the left hip. Scans of shown an enlarging left lung upper lobe mass and evidence of pericardial thickening and effusion. Recent formation of pericardial window and evaluation of pericardial and pleural fluid. Both are positive with evidence of metastatic adenocarcinoma. Bone scan shows evidence of diffuse bony metastatic disease involving multiple ribs on both left and right, T9 and left femur. Patient is scheduled for an MRI of the thoracic and lumbar spine. In conversation today patient states she is claustrophobic and requested appropriate medication so that she can get through the planned studies. I have notified nursing who will contact Dr. Leblanc to obtain the appropriate medication. I met with the patient and discussed the diagnosis and the potential use of radiation. I told her that the purpose of the radiation would be to prevent or decrease pain in the 2 sites. Her major pain is in the lower mid back radiating into the left thigh and hip region. This corresponds with the bone scan findings. I told her that I would recommend proceeding with palliative radiation consisting of 10 fractions to the appropriate thoracic spine and left hip. To that end I reviewed with her the potential risks and side effects of a course of palliative radiation to the sites. A consent form was reviewed with the patient. The risks were read by the patient and initialed and the consent form was reviewed and signed and witnessed. With the patient's consent we will proceed with a CT simulation tomorrow. Once the MRIs have been completed we will utilize this information to design our treatment [place]. The plan would be to start palliative radiation to the 2 sites as soon as possible. Thank you for allowing us to participate in the care of this patient. This chart was completed in part utilizing [employer] Speech Voice Recognition software. Attempts were made to minimize the grammatical errors, random word insertions, pronoun errors and incomplete sentences. Any formal questions or concerns about the content, text or information contained within the body of this dictation should be directly addressed to the provider for clarification. Joseph Garcia MD Department of Radiation Oncology [facility] and [facility] Total Time (Attending) I spent 20 minutes in discussion and examination of Ms. Dunn and 20 minutes reviewing her scans and in preparation of this document. Copy To Hany Leblanc D.O.; Daron Harris M.D. Problem Qualifiers (1) Adenocarcinoma of lung, stage 4: Laterality: left Qualified Codes: C34.92 - Malignant neoplasm of unspecified part of left bronchus or lung
[2017-05-27] MEDS: CHECK FENTANYL PATCH PLACEMENT SCH ×2 (15:52→23:22)
[2017-05-27 16:02] VITALS: BP 156/78; PULSE 94; TEMP 37.1; O2SAT 92
[2017-05-27] MEDS ORDERED: LORAZEPAM INJ 0.5 MG in SYRINGE 0.75 ML IV ONE (18:30)
[2017-05-27] MEDS ORDERED: LORAZEPAM INJ 0.5 MG in SYRINGE 0.75 ML IV PRN (19:00)
--- NOTE | 2017-05-27 19:04 | Hospitalist Progress Note ---
Hospitalist Progress Note Date of Service May 27, 2017. Subjective Pt evaluation today including: conversation w/ patient, conversation w/ family , conversation w/ storage management consultant (Thoracic Surgery) Moving bowels somewhat now. Pain in hip and back is significantly improved since starting Fentanyl patch and increased dose of oxycodone. No SOB, no CP. Awaiting MRI spine this evening and is claustrophobic-will get ativan Constitutional: No fever All Other Systems: Reviewed and Negative Objective Vital Signs Date Time Temp Pulse Resp B/P (MAP) Pulse Ox O2 Delivery O2 Flow Rate FiO2 05/27/17 16:02 37.1 94 18 156/78 (104) 92 Nasal Cannula 2.0 05/27/17 15:50 Nasal Cannula 2.0 05/27/17 08:32 37.3 96 16 150/73 (98) 93 Nasal Cannula 2.0 05/27/17 08:00 93 Oxymask 05/27/17 04:27 94 Oxymask 2.0 05/27/17 04:23 79 Room Air 05/26/17 23:30 Oxymask 2.0 05/26/17 23:20 37.2 96 18 163/75 (104) 93 Oxymask 2.0 05/26/17 20:30 36.6 05/26/17 19:03 92 Nasal Cannula 2.0 05/26/17 18:55 84 Room Air Physical Exam General Appearance: WD/WN, no apparent distress Eyes: normal inspection, sclerae normal ENT: hearing grossly normal Neck: trachea midline Respiratory/Chest: no respiratory distress, no accessory muscle use, + decreased breath sounds (diminished througout, moreso at the bases) Cardiovascular: regular rate, rhythm, no edema, no murmur Abdomen: normal bowel sounds, non tender, soft Neurologic/Psychiatric: alert, normal mood/affect, oriented x 3 Skin: normal color, warm/dry Laboratory Results Last 24 Hours Test 05/27/17 09:33 Sodium Level 133 mmol/L Potassium Level 3.5 mmol/L Chloride Level 99 mmol/L Carbon Dioxide Level 27 mmol/L Anion Gap 7.0 mmol/L Blood Urea Nitrogen 9 mg/dl Creatinine 0.40 mg/dl Est Creatinine Clear Calc Drug Dose 112.7 ml/min Estimated GFR () 115.6 Estimated GFR (Non- 99.8 BUN/Creatinine Ratio 22.2 Random Glucose 166 mg/dl Calcium Level 8.3 mg/dl Magnesium Level 2.0 mg/dl Assessment and Plan Patient is a 77 y/o F Hx HTN, HPL, hypothyroidism, carotid stenosis. The pt was undergoing evaluation for a L CEA. She had a stress echo on the day of admission, however, the initial echocardiogram revealed a significant pericardial effusion. Furthermore, she has had a 25 lb wt loss over the past few months and has a known suspicious L upper lobe 8mm lung mass. She did not c /o CP, N/V, or fevers. She has been SOB for > 2 wks. She was tachycardic with a borderline low BP at the media developer's office and was therefore referred to the ER. Her vital signs have stabilized following IV hydration. She underwent pericardial window on 05/23 and biopsy of a intrathoracic lymph node. The pt also states that she has had excessive pain in her lower back and radiating down her l leg which has been keeping her up at night. 1. pericardial effusion, s/p pericardial window by Dr. Zhou - POD #4 - chest tube removed Pleural fluid grossly bloody and cytology with metastatic adenocarcinoma most likely lung primary-to be sent out for further studies Awaiting further studies on the lymph node biopsy Pleural fluid also with atypical cells consistent with metastatic carcinoma Bone scan consistent with bony metastases in ribs, mid spine, left hip at sites of her pain -Pain control with Fentanyl patch, oxycodone for breakthrough--working very well -Dr. Lance recommends repeat ECHO in 2 weeks-his office will arrange 2. 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 hypotension - 2nd to #1 - resolved. A line removed prior to transfer out of the ICU 4. COPD/acute hypoxic respiratory failure stable, continue nebs/inhalers/ supportive care. -Continue on oxygen mask and/or nasal cannula as needed keep pulse ox greater than 92% -will need 2 step prior to discharge 5. 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 serum osm, urine osm, urine Na consistent with this. TSH normal -Follow PRP 6. moderate-severe protein calorie malnutrition -likely secondary to malignancy 7. hypothyroidism - TSH here normal, -continue synthroid same dose. 8. PAD with ICA stenosis on left - noted. Was scheduled to have CEA in 2 weeks -will let Dr. Orourke know her current situation but doubt she will have CEA now -Cont statin -restart ASA when ok with thoracic surgery. 9. HTN -home BP med fosinopril on hold due to previous hypotension -Restart ACEI tomorrow 10. hyperlipidemia -continue statin. ANemia-normocytic, likely of chronic disease, also with recent surgery, stable, hgb 9-10 -follow CBC Left sided lower back pain/left hip pain/Back pain-secondary to bony mets confirmed on Bone scan -MRI spine today -plans for XRT -pain control DVT proph - SCDs only, can start heparin subcu when okay with surgery disposition-discharge after XRT plans completed Full code
[2017-05-27] MEDS ORDERED: GADAVIST IV PRN (20:45)
--- NOTE | 2017-05-27 21:12 | Progress Note ---
Post ICU Progress Note Date & Time May 27, 2017 at 21:12 Vital Signs Vital Signs Past 12 Hours Date Time Temp Pulse Resp B/P (MAP) Pulse Ox O2 Delivery O2 Flow Rate FiO2 05/27/17 16:02 37.1 94 18 156/78 (104) 92 Nasal Cannula 2.0 05/27/17 15:50 Nasal Cannula 2.0 Notes Mental Status: see Notes Nausea / Vomiting: adequately controlled Pain: adequately controlled Airway Patency, RR, SpO2: stable & adequate BP & HR: stable & adequate Patient is a 77-year-old female initially admitted to the ICU postoperatively after pericardial window performed. She was hypotensive on initial presentation which did improve. Since transfer from the floor, the patient has had improvement of symptoms, notably decreased pain. She is currently being evaluated by Iggy Lin for radiation therapy for likely metastatic spread of lung CA. Overall, she has improved since the time of discharge from ICU. On evaluation, the patient is sleeping comfortably after having an MRI performed of her lumbar spine. I did not wake the patient as she had an uneventful day for multiple imaging studies performed. Per nursing notes and provider notes, the patient has been improving greatly. Consider outpatient follow up in 1 to 2 weeks with: CT surgery, Heme/Onc, PCP Repeat imaging needed: Per primary services. Follow up cultures: None Reviewed progress notes, labs, and inpatient medication list Continue current management Additional recommendations: None at this time. Please feel free to reconsult as needed. Consults & Procedures Consultants: Thoracic Surgery: Dr. Zhou Cardiology: Dr. Lance Procedures: R thoracoscopy with pericardial window; biopsy of R level [address] Zohu 05/23
[2017-05-27] MEDS: SIMVASTATIN 80 MG TAB PO SCH (21:31)
[2017-05-27] MEDS: KETOROLAC TROMETHAMINE 15 MG/ML VIAL IV. PRN (21:32)
--- NOTE | 2017-05-27 21:44 | DIAGNOSTIC IMAGING REPORT ---
THORACIC AND LUMBAR SPINE MRI WITH AND WITHOUT CONTRAST HISTORY: back pain Dx of lung cancer. Abnormal bone scan. TECHNIQUE: Multiplanar multisequence MRI of the thoracic and lumbar spine was performed both before and after the intravenous administration of contrast. COMPARISON: Bone scan 05/26/2017. Chest CT 05/23/2017. FINDINGS: Thoracic spine: There are multiple scattered T2 hyperintense, T1 hypointense enhancing lesions seen throughout the vertebral bodies of the thoracic spine. Dominant lesion at T9 measures 2.8 cm. No paraspinal or subdural masses at this time. Left pleural effusion and left upper lobe 1.1 cm nodule persists. There is a left paracentral focal disc protrusion at T8-T9 resulting in mild left anterior cord deformity. Nonenhancing subcutaneous cyst within the left mid back at the T7 level. This favors a sebaceous cyst. However, best seen on axial image 32 there is a 1.7 cm enhancing soft tissue nodule within the deep subcutaneous fat at the L2 level abutting the left erector spinae muscles. This is concerning for a metastatic focus. No fractures within the thoracic spine. Mild degenerative disc disease throughout the thoracic spine. The cervical spinal cord demonstrates a normal signal intensity. There is a metastatic lesion seen within the left T10 transverse process. There is a T2 hyperintense, T1 hypointense lesion within the C7 vertebral body consistent with a metastatic focus. There is a 1.1 cm T2 hyperintense lesion within the right hepatic lobe. This is obscured by the motion artifact on the postcontrast sequences and is therefore incompletely characterized. Lumbar spine: Multiple scattered T2 hyperintense, T1 hypointense enhancing lesion seen within the vertebral bodies of the lumbar spine and sacrum. There are also a few scattered lesions within the posterior element of the lumbar spine. This is consistent with metastatic disease. No significant central canal or neural foraminal narrowing. No epidural or paraspinal masses at this time. There is a 6 mm enhancing nodule within the left posterior subcutaneous fat of the L4 level and a 6 mm enhancing nodule within the left subcutaneous fat at the T10 level. These are concerning for small metastatic foci. No fracture or subluxation within the lumbar spine. Prominent retroperitoneal lymph nodes remain subcentimeter in short axis diameter. IMPRESSION: 1. Multiple scattered T2 hyperintense, T1 hypointense enhancing lesions seen within the visualized cervical, thoracic and lumbar spine consistent with metastatic disease. These are primarily located within the vertebral bodies with a few scattered lesions within the posterior elements. 2. No fractures identified within the thoracic or lumbar spine. 3. Scattered subcutaneous soft tissue nodules within the posterior thoracic and lumbar region. These likely represent small metastatic deposits. 4. A 1.1 cm T2 hyperintense lesion within the right hepatic lobe. This was obscured by motion artifact on the postcontrast sequences and therefore remains indeterminate. Follow-up PET/CT can be used for further evaluation. Electronically signed by: Steven Mirza M.D. 05/27/2017 9:43 PM Dictated Date/Time: 05/27/2017 9:24 PM
[2017-05-27 22:39] VITALS: BP 146/75; PULSE 83; TEMP 37.3; O2SAT 96
[2017-05-28] MEDS: LEVOTHYROXINE 50 MCG TAB PO SCH (05:47)
[2017-05-28 05:54] VITALS: O2SAT 83
[2017-05-28 05:55] VITALS: O2SAT 92
--- NOTE | 2017-05-28 06:52 | History & Physical Bridge Note ---
H&P Re-Evaluation Bridge Note: I have examined the patient, reviewed the History & Physical and in the interval since the performance of the History & Physical I have noted the following changes of clinical significance: No changes noted
[2017-05-28 07:11] VITALS: BP 147/81; PULSE 86; TEMP 36.8; O2SAT 93
[2017-05-28] MEDS: OXYCODONE HCL IR 5 MG TAB (IMMEDIATE RELEASE) PO PRN ×3 (07:20→21:43)
[2017-05-28] MEDS: CHECK FENTANYL PATCH PLACEMENT SCH ×3 (08:10→23:55)
[2017-05-28] MEDS: BOOST VANILLA PO SCH ×2 (08:30→17:24)
[2017-05-28] MEDS: POLYETHYLENE (MIRALAX) 17 GM PACK PO SCH (08:47)
[2017-05-28] MEDS: CEROVITE ADV FORMULA TAB PO SCH (09:04)
[2017-05-28] MEDS: ENOXAPARIN 40 MG/0.4 ML SYR SQ SCH (09:04)
[2017-05-28] MEDS: LISINOPRIL 20 MG TAB PO SCH (09:04)
[2017-05-28] MEDS: MoRPHine SULFATE 4 MG/ML 1 ML CARP\\VIAL IV PRN (09:37)
--- NOTE | 2017-05-28 10:10 | DIAGNOSTIC IMAGING REPORT ---
CHEST ONE VIEW PORTABLE CLINICAL HISTORY: effusion dyspnea COMPARISON STUDY: 05/26/2017 FINDINGS: PROCEDURE: Described a small right apical pneumothorax has resolved. Right lung remains clear. There continues to be a left basilar parenchymal density combined with a small left effusion. This is slightly improved. Improved visibility of the left hemidiaphragm. Left upper lung is considered clear. IMPRESSION: Mildly improved exam with a slight decrease in volume of left pleural effusion. No significant right-sided pneumothorax. The above report was generated using voice recognition software. It may contain grammatical, syntax or spelling errors. Electronically signed by: Riley Stokes M.D. 05/28/2017 10:09 AM Dictated Date/Time: 05/28/2017 10:07 AM
[2017-05-28 11:17] VITALS: BP 162/79; PULSE 102; TEMP 36.8; O2SAT 93
[2017-05-28] MEDS ORDERED: ASPIRIN 325 MG ECTAB PO ONE (11:56)
--- NOTE | 2017-05-28 12:05 | Hospitalist Progress Note ---
Hospitalist Progress Note Date of Service May 28, 2017. Subjective Pt evaluation today including: conversation w/ patient, conversation w/ direct response consultant (Thoracic SUrgery) Patient just returned from CT simulation and radiation oncology. She reports receiving morphine prior to that and her pain is well controlled right now. Denies shortness of breath. Reviewed the results of her MRI with her. Constitutional: No fever Cardiovascular: No chest pain Abdomen: + constipation Female : No problem reported All Other Systems: Reviewed and Negative Objective Vital Signs Date Time Temp Pulse Resp B/P (MAP) Pulse Ox O2 Delivery O2 Flow Rate FiO2 05/28/17 11:17 36.8 102 18 162/79 (106) 93 Nasal Cannula 2.0 05/28/17 07:11 36.8 86 18 147/81 (103) 93 Nasal Cannula 2.0 05/28/17 07:10 Nasal Cannula 2.0 05/28/17 05:55 92 Nasal Cannula 2.0 05/28/17 05:54 83 Room Air 05/27/17 23:15 Nasal Cannula 2.0 05/27/17 22:39 37.3 83 16 146/75 (98) 96 Nasal Cannula 2.0 05/27/17 16:02 37.1 94 18 156/78 (104) 92 Nasal Cannula 2.0 05/27/17 15:50 Nasal Cannula 2.0 Physical Exam General Appearance: WD/WN, no apparent distress Eyes: normal inspection, sclerae normal ENT: hearing grossly normal Neck: trachea midline Respiratory/Chest: no respiratory distress, no accessory muscle use, + decreased breath sounds (At left base, some crackles at the right base) Cardiovascular: regular rate, rhythm, no edema, no murmur Abdomen: normal bowel sounds, non tender, soft Extremities: non-tender, normal inspection, no pedal edema, no calf tenderness Neurologic/Psychiatric: alert, normal mood/affect, oriented x 3 Skin: normal color, warm/dry, no rash Assessment and Plan Patient is a 77 y/o F Hx HTN, HPL, hypothyroidism, carotid stenosis. The pt was undergoing evaluation for a L CEA. She had a stress echo on the day of admission, however, the initial echocardiogram revealed a significant pericardial effusion. Furthermore, she has had a 25 lb wt loss over the past few months and has a known suspicious L upper lobe 8mm lung mass. She did not c /o CP, N/V, or fevers. She has been SOB for > 2 wks. She was tachycardic with a borderline low BP at the technical services representative's office and was therefore referred to the ER. Her vital signs have stabilized following IV hydration. She underwent pericardial window on 05/23 and biopsy of a intrathoracic lymph node. The pt also states that she has had excessive pain in her lower back and radiating down her left leg which has been keeping her up at night. 1. Malignant pericardial effusion, s/p pericardial window by Dr. Zhou - POD #5 -chest tube since removed Pleural fluid grossly bloody and cytology with metastatic adenocarcinoma most likely lung primary-to be sent out for further studies Awaiting further studies on the lymph node biopsy Pleural fluid also with atypical cells consistent with metastatic carcinoma Bone scan consistent with bony metastases in ribs, mid spine, left hip at sites of her pain -Pain control with Fentanyl patch, oxycodone for breakthrough--working very well -Dr. Lance recommends repeat ECHO in 2 weeks which would be around the first week of June-his office will arrange 2. 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 hypotension - 2nd to #1 - resolved. A line removed prior to transfer out of the ICU 4. COPD/acute hypoxic respiratory failure stable, continue nebs/inhalers/ supportive care. -Continue on oxygen mask and/or nasal cannula as needed keep pulse ox greater than 92% -will need 2 step prior to discharge-likely tomorrow 5. 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 serum osm, urine osm, urine Na consistent with this. TSH normal -Follow PRP in the morning 6. moderate-severe protein calorie malnutrition -likely secondary to malignancy 7. hypothyroidism - TSH here normal, -continue synthroid same dose. 8. PAD with ICA stenosis on left - noted. Was scheduled to have CEA in 2 weeks -will let Dr. Pinedo know her current situation but doubt she will have CEA now -Cont statin -restart ASA today-discussed with thoracic surgery and that this is okay 9. HTN -home BP med fosinopril on hold due to previous hypotension, now hypertensive -Restart ACEI today 10. hyperlipidemia -continue statin. ANemia-normocytic, likely of chronic disease, also with recent surgery, stable, hgb 9-10 -follow CBC Left sided lower back pain/left hip pain/Back pain-secondary to bony mets confirmed on Bone scan -MRI spine confirms -plans for XRT for treatment for pain -pain control with fentanyl patch and oxycodone DVT proph - SCDs, Lovenox disposition-discharge after XRT tomorrow hopefully, should arrange home health if patient agreeable, PT and OT recommend return home with 24-hour care if possible Full code
[2017-05-28] MEDS: MAGNESIUM HYDROXIDE SUSP 30 ML UDC PO PRN (12:29)
[2017-05-28 16:15] VITALS: BP 169/72; PULSE 98; TEMP 36.4; O2SAT 90
--- NOTE | 2017-05-28 17:21 | SURGERY PROGRESS NOTE ---
DATE: 05/28/2017 Mrs. Dunn is seen today on 05/28/2017. She is better. Her pain is better. Her pericardial biopsy showed no evidence of malignancy, and the lymph node I resected in the level 4 area was also negative. Despite that, her pleural fluid was positive. This was a watch that we did as she really did not have much in the way of pleural fluid. It should also be noted that I did the pleural fluid analysis before I opened the pericardium. I discussed this case with Dr. Leblanc and Dr. Garcia. She was simulated today and will be started on palliative radiation therapy tomorrow.
[2017-05-28] MEDS: SIMVASTATIN 80 MG TAB PO SCH (21:42)
[2017-05-28 23:30] VITALS: BP 159/79; PULSE 95; TEMP 37.3; O2SAT 93
[2017-05-29] MEDS: OXYCODONE HCL IR 5 MG TAB (IMMEDIATE RELEASE) PO PRN ×2 (03:22→07:06)
[2017-05-29] MEDS: MoRPHine SULFATE 4 MG/ML 1 ML CARP\\VIAL IV PRN (05:24)
[2017-05-29] MEDS: LEVOTHYROXINE 50 MCG TAB PO SCH (05:27)
[2017-05-29] MEDS: KETOROLAC TROMETHAMINE 15 MG/ML VIAL IV. PRN (07:05)
[2017-05-29 07:16] VITALS: BP 134/72; PULSE 99; TEMP 37.1; O2SAT 92
[2017-05-29 07:17] LABS: HEMATOCRIT 31.8 % (37-47); HEMOGLOBIN 10.5 g/dL (12.0-16.0); MEAN CELL VOLUME 87.4 fL (80-100); MEAN CORPUSCULAR HEMOGLOBIN 28.8 pg (25-34); PLATELET COUNT 343 K/uL (130-400); RED CELL DISTRIBUTION WIDTH CV 13.9 % (11.5-14.5); RED CELL DISTRIBUTION WIDTH SD 44.6 fL (36.4-46.3); WHITE BLOOD COUNT 12.37 K/uL (4.8-10.8)
[2017-05-29 07:49] LABS: CREATININE 0.44 mg/dl (0.60-1.20); POTASSIUM 3.9 mmol/L (3.5-5.1)
[2017-05-29] MEDS: CHECK FENTANYL PATCH PLACEMENT SCH ×2 (08:00→15:50)
[2017-05-29] MEDS: ASPIRIN 325 MG ECTAB PO SCH (08:48)
[2017-05-29] MEDS: CEROVITE ADV FORMULA TAB PO SCH (08:48)
[2017-05-29] MEDS: LISINOPRIL 20 MG TAB PO SCH (08:48)
[2017-05-29] MEDS: ENOXAPARIN 40 MG/0.4 ML SYR SQ SCH (08:49)
--- NOTE | 2017-05-29 10:10 | SURGERY PROGRESS NOTE ---
DATE: 05/29/2017 Ms. Dunn is seen today. She was pretty comfortable overnight; however, then stated she developed quite a bit of pain. She is on a Duragesic patch 12 mg per hour. She is also getting morphine as well as oxycodone. I told her that when she develops the pain, she must ask for the pain medicine. She has been walking. She is moving her bowels. She is, I believe, scheduled to start her radiation for palliation today.
[2017-05-29] MEDS: BOOST VANILLA PO SCH ×2 (11:01→18:38)
[2017-05-29] MEDS: POLYETHYLENE (MIRALAX) 17 GM PACK PO SCH (11:01)
--- NOTE | 2017-05-29 12:19 | Hematology/Oncology Prog Note ---
Hematology/Onc Progress Note Date of Service May 29, 2017. Diagnoses Metastatic adenocarcinoma of the lung Refractory back and leg pain secondary to metastatic disease Malignant pericardial effusion status post pericardial window Medications Medications Administered Medications (Trade) Dose Ordered Sig/Chalino Route Start Time Stop Time Status Last Admin Dose Admin Sodium Chloride 1,000 ml @ 999 mls/hr Q1H1M STAT IV 05/22/17 17:19 05/22/17 18:19 DC 05/22/17 17:45 999 MLS/HR Oxycodone/ Acetaminophen (Percocet 5-325mg Tab) 1 tab NOW ONCE PO 05/22/17 17:30 05/22/17 17:31 DC 05/22/17 17:45 1 TAB Levothyroxine Sodium (Synthroid Tab) 50 mcg DAILYBB PO 05/23/17 06:00 06/22/17 06:59 05/29/17 05:27 50 MCG Simvastatin (Zocor Tab) 80 mg QPM PO 05/22/17 21:00 06/21/17 20:59 05/28/17 21:42 80 MG Acetaminophen (Tylenol Tab) 650 mg Q4H PRN PO 05/22/17 20:30 05/23/17 15:21 DC 05/23/17 03:10 650 MG Magnesium Hydroxide (Milk Of Magnesia Susp) 30 ml Q12H PRN PO 05/22/17 20:30 06/21/17 20:29 05/28/17 12:29 30 ML Morphine Sulfate (MoRPHine SULFATE INJ) 2 mg Q30M PRN IV 05/22/17 20:30 06/05/17 20:29 05/26/17 09:12 2 MG Potassium Chloride/Sodium Chloride 1,000 ml @ 100 mls/hr Q10H IV 05/22/17 20:30 05/23/17 11:29 DC 05/23/17 06:05 100 MLS/HR Tramadol HCl (Ultram Tab) 50 mg Q4H PRN PO 05/22/17 20:30 05/23/17 15:21 DC 05/23/17 08:49 50 MG Morphine Sulfate (MoRPHine SULFATE INJ) 3 mg Q4H PRN IV 05/22/17 20:30 06/05/17 20:29 05/29/17 05:24 3 MG Sodium Chloride (Sodium Chloride 0.9% Pf Inj) 100 ml STK-MED ONCE .ROUTE 05/23/17 13:40 05/23/17 13:41 DC 05/23/17 14:35 100 ML Sodium Chloride (Sodium Chloride 0.9% Inj) 10 ml STK-MED ONCE .ROUTE 05/23/17 13:40 05/23/17 13:41 DC 05/23/17 14:35 10 ML Bupivacaine HCl (Marcaine 0.5% MPF Inj) 30 ml STK-MED ONCE .ROUTE 05/23/17 13:40 05/23/17 13:41 DC 05/23/17 14:34 30 ML Bupivacaine Liposome (Exparel) 266 mg STK-MED ONCE INFIL 05/23/17 13:40 05/23/17 13:41 DC 05/23/17 14:35 266 MG Acetaminophen 1000 mg/Empty Bag 100 ml @ 400 mls/hr Q8H IV 05/23/17 16:00 05/27/17 19:06 DC 05/27/17 15:52 400 MLS/HR Oxycodone HCl (Roxicodone Immediate Rel Tab) 5 mg Q6H PRN PO 05/23/17 15:15 05/27/17 08:40 DC 05/27/17 05:39 5 MG Albuterol/ Ipratropium (Duoneb) 3 ml 1630 ONCE INH 05/23/17 16:30 05/23/17 16:31 DC 05/23/17 16:29 3 ML Lactated Ringer's 1,000 ml @ 500 mls/hr Q2H STAT IV 05/23/17 21:14 05/23/17 23:13 DC 05/23/17 21:33 500 MLS/HR Lactated Ringer's 1,000 ml @ 500 mls/hr Q2H STAT IV 05/23/17 22:54 05/24/17 00:53 DC 05/23/17 23:21 500 MLS/HR Sodium Chloride 500 ml @ 250 mls/hr Q2H ONCE IV 05/24/17 12:30 05/24/17 14:29 DC 05/24/17 12:47 250 MLS/HR Polyethylene (Miralax Powder Packet) 17 gm DAILY PO 05/25/17 09:00 06/21/17 20:29 05/29/17 11:01 17 GM Polyethylene (Miralax Powder Packet) 17 gm 2015 ONCE PO 05/24/17 20:15 05/24/17 20:16 DC 05/24/17 21:06 17 GM Multivitamins/ Minerals (Multivitamin W/ Minerals Tab) 1 tab QAM PO 05/25/17 09:00 06/24/17 08:59 05/29/17 08:48 1 TAB Enteral Nutritional Formula (Boost) 1 can BIDM PO 05/25/17 07:15 06/24/17 07:14 05/29/17 11:01 1 CAN Enoxaparin Sodium (Lovenox Inj) 40 mg QAM SQ 05/26/17 09:00 06/25/17 08:59 05/29/17 08:49 40 MG Enoxaparin Sodium (Lovenox Inj) 40 mg 1215 ONCE SQ 05/25/17 12:15 05/25/17 12:16 DC 05/25/17 13:41 40 MG Potassium Chloride (Klor-Con M10) 40 meq NOW STAT PO 05/26/17 08:15 05/26/17 08:24 DC 05/26/17 08:57 40 MEQ Ketorolac Tromethamine (Toradol Inj) 15 mg Q6H PRN IV. 05/27/17 08:30 06/01/17 08:29 05/29/17 07:05 15 MG Oxycodone HCl (Roxicodone Immediate Rel Tab) `1-2 tabs for pain 1 tab ... Q3HWA PRN PO 05/27/17 08:30 06/10/17 08:29 05/29/17 07:06 10 MG Fentanyl (Duragesic Patch) 12 mcg Q72H TD 05/27/17 09:00 06/10/17 08:59 05/27/17 09:00 12 MCG Miscellaneous Information (Check Fentanyl Patch Placement) 1 ea QS N/A 05/27/17 16:00 06/26/17 15:59 05/29/17 08:00 1 EA Lorazepam 0.5 mg/ Syringe 1 ml @ 1 mls/min NOW ONCE IV 05/27/17 18:30 05/27/17 18:31 DC 05/27/17 19:04 1 MLS/MIN Lisinopril (Zestril Tab) 20 mg QAM PO 05/28/17 09:00 06/27/17 08:59 05/29/17 08:48 20 MG Aspirin (Ecotrin Tab) 325 mg DAILY PO 05/29/17 09:00 06/28/17 08:59 05/29/17 08:48 325 MG Aspirin (Ecotrin Tab) 325 mg 1156 ONCE PO 05/28/17 11:56 05/28/17 11:58 DC 05/28/17 11:56 325 MG Subjective She still requiring morphine parenterally to help control her pain. She is scheduled to begin radiation therapy today. She also has a scheduled follow-up in our cancer clinic next . Otherwise she seems to be doing well Review of Systems: Constitutional: Negative for night sweats, or fever Eyes: Negative for event change of vision ENT: Negative for epistaxis, nasal discharge, sore throat, or deafness Cardiovascular: Negative for chest pain, palpitations, dizziness, diaphoresis Respiratory: Negative for new shortness of breath,hemoptysis, or purulent cough Gastrointestinal: Negative for diarrhea, hematemesis, melena, nausea, vomiting , or dyspepsia Integumentary (skin): Negative for rash or jaundice discoloration Genitourinary: Negative for urinary frequency, hematuria, or dysuria Neurological: Negative for weakness, seizure activity, headache, or dizziness Lymphatic/Hematologic: Negative for petechiae, bleeding or new adenopathy Musculoskeletal: Continued back and leg pain as before Allergic/Immunologic: Negative for unusual rash or pruritis. Vital Signs Vital Signs Past 12 Hours Date Time Temp Pulse Resp B/P (MAP) Pulse Ox O2 Delivery O2 Flow Rate FiO2 05/29/17 07:16 37.1 99 18 134/72 (92) 92 Nasal Cannula 3.0 05/29/17 07:06 Nasal Cannula 3.0 Physical Exam Constitutional: vitals are stable. Eyes: Eyes are KARUNA EOMI without conjuctival erythema or icterus. ENT: External examination was negative for masses. Neck: Negative for masses or palpable thyromegaly Respiratory: Lung sounds were generally clear bilaterally Cardiovascular: Heart was RRR without significant murmur, gallops aoe rubs Gastrointestinal: No palpable hepatic or splenomegaly. The abdomen was soft with normal bowel sounds. Lymphatic system: there was no palpable peripheral lymphadenopathy Musculoskeletal System: The musculoskeletal system seemed concordant with age. Skin: The skin was negative for jaundice. Neurologic exam: The exam was negative for any focal findings. Deep tendon reflexes were equal and symmetrical. Psychiatric exam: Was essentially negative with normal mood and effect. Extremities: negative for edema Laboratory Last 24 Hours Test 05/29/17 06:55 White Blood Count 12.37 K/uL Red Blood Count 3.64 M/uL Hemoglobin 10.5 g/dL Hematocrit 31.8 % Mean Corpuscular Volume 87.4 fL Mean Corpuscular Hemoglobin 28.8 pg Mean Corpuscular Hemoglobin Concent 33.0 g/dl RDW Standard Deviation 44.6 fL RDW Coefficient of Variation 13.9 % Platelet Count 343 K/uL Mean Platelet Volume 9.0 fL Sodium Level 137 mmol/L Potassium Level 3.9 mmol/L Chloride Level 103 mmol/L Carbon Dioxide Level 26 mmol/L Anion Gap 8.0 mmol/L Blood Urea Nitrogen 12 mg/dl Creatinine 0.44 mg/dl Est Creatinine Clear Calc Drug Dose 102.5 ml/min Estimated GFR () 112.1 Estimated GFR (Non- 96.7 BUN/Creatinine Ratio 28.3 Random Glucose 96 mg/dl Calcium Level 9.0 mg/dl Magnesium Level 2.2 mg/dl Assessment & Plan Stage IV adenocarcinoma of the lung. Patient will begin receiving radiation therapy to help palliate her pain. She states that she has had the 12 mcg fentanyl patch for 3 days. It may be time to increase this to 25 mcg. She has a date to visit us in clinic this time next week. We will sign off for now but please do not hesitate to reconsult if needed. I suspect discharge is imminent.
--- NOTE | 2017-05-29 13:09 | Hospitalist Progress Note ---
Hospitalist Progress Note Date of Service May 29, 2017. Subjective Pt evaluation today including: conversation w/ patient, conversation w/ family Patient still having 9 out of 10 pain at times and is requiring IV morphine and p.o. oxycodone quite frequently on top of her fentanyl patch. She is agreeable to increasing the fentanyl patch. Denies chest pain or shortness of breath. Has not had her radiation treatment started-the nurse down there set it will most likely be Friday. Still requiring oxygen. Abdomen: No nausea, No vomiting, No constipation (Is now moving her bowels) All Other Systems: Reviewed and Negative Objective Vital Signs Date Time Temp Pulse Resp B/P (MAP) Pulse Ox O2 Delivery O2 Flow Rate FiO2 05/29/17 07:16 37.1 99 18 134/72 (92) 92 Nasal Cannula 3.0 05/29/17 07:06 Nasal Cannula 3.0 05/29/17 00:10 Oxymask 05/28/17 23:30 37.3 95 16 159/79 (105) 93 Nasal Cannula 2.0 Oxymask 05/28/17 16:15 36.4 98 18 169/72 (104) 90 2.0 05/28/17 15:43 Nasal Cannula 2.0 Physical Exam General Appearance: WD/WN, no apparent distress Eyes: normal inspection, sclerae normal ENT: hearing grossly normal Neck: trachea midline Respiratory/Chest: no respiratory distress, no accessory muscle use, + crackles (At the bases, diminished mildly throughout) Cardiovascular: regular rate, rhythm, no edema, no murmur Abdomen: normal bowel sounds, non tender, soft Extremities: normal inspection, no pedal edema, no calf tenderness Neurologic/Psychiatric: alert, normal mood/affect, oriented x 3 Skin: normal color, warm/dry, no rash Laboratory Results Last 24 Hours Test 05/29/17 06:55 White Blood Count 12.37 K/uL Red Blood Count 3.64 M/uL Hemoglobin 10.5 g/dL Hematocrit 31.8 % Mean Corpuscular Volume 87.4 fL Mean Corpuscular Hemoglobin 28.8 pg Mean Corpuscular Hemoglobin Concent 33.0 g/dl RDW Standard Deviation 44.6 fL RDW Coefficient of Variation 13.9 % Platelet Count 343 K/uL Mean Platelet Volume 9.0 fL Sodium Level 137 mmol/L Potassium Level 3.9 mmol/L Chloride Level 103 mmol/L Carbon Dioxide Level 26 mmol/L Anion Gap 8.0 mmol/L Blood Urea Nitrogen 12 mg/dl Creatinine 0.44 mg/dl Est Creatinine Clear Calc Drug Dose 102.5 ml/min Estimated GFR () 112.1 Estimated GFR (Non- 96.7 BUN/Creatinine Ratio 28.3 Random Glucose 96 mg/dl Calcium Level 9.0 mg/dl Magnesium Level 2.2 mg/dl Assessment and Plan Patient is a 77 y/o F Hx HTN, HPL, hypothyroidism, carotid stenosis. The pt was undergoing evaluation for a L CEA. She had a stress echo on the day of admission, however, the initial echocardiogram revealed a significant pericardial effusion. Furthermore, she has had a 25 lb wt loss over the past few months and has a known suspicious L upper lobe 8mm lung mass. She did not c /o CP, N/V, or fevers. She has been SOB for > 2 wks. She was tachycardic with a borderline low BP at the medical typist's office and was therefore referred to the ER. Her vital signs have stabilized following IV hydration. She underwent pericardial window on 05/23 and biopsy of a intrathoracic lymph node. The pt also states that she has had excessive pain in her lower back and radiating down her left leg which has been keeping her up at night. 1. Malignant pericardial effusion, s/p pericardial window by Dr. Zhou - POD #6 -chest tube since removed Pleural fluid grossly bloody and cytology with metastatic adenocarcinoma most likely lung primary-to be sent out for further studies which are still pending Lymph node is negative Pleural fluid also with atypical cells consistent with metastatic carcinoma Bone scan consistent with bony metastases in ribs, mid spine, left hip at sites of her pain -Dr. Lance recommends repeat ECHO in 2 weeks which would be around the first week of June-his office will arrange 2. JAELYN lung mass/Metastatic lung adenocarcinoma with mets to bones (ribs, mid spine, left hip) and pericardium-still with significant bony pain -Seen by Heme/Onc and Rad Onc -appreciate consultations -f/u with Oncology in 7-10 days for further evaluation and treatment -MRI spine with multiple vertebral bony metastases as well as soft tissue nodules around the spine -CT simulation was performed in prep for palliative XRT to bony mets-will most likely begin first treatment on Friday as an outpatient -Pain control with Fentanyl patch, oxycodone for breakthrough-but still requiring frequent IV morphine-increase fentanyl patch to 25 mcg today -Continue inpatient stay until pain controlled without parenteral analgesics 3. hypotension - 2nd to #1 - resolved. A line removed prior to transfer out of the ICU 4. COPD/acute hypoxic respiratory failure stable, continue nebs/inhalers/ supportive care. -Continue on oxygen mask and/or nasal cannula as needed keep pulse ox greater than 92% -will need 2 step prior to discharge-likely tomorrow 5. 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 serum osm, urine osm, urine Na consistent with this. TSH normal 6. moderate-severe protein calorie malnutrition -likely secondary to malignancy 7. hypothyroidism - TSH here normal, -continue synthroid same dose. 8. PAD with ICA stenosis on left - noted. Was scheduled to have CEA in 2 weeks -I have communicated to the vascular surgery team about her current situation but doubt she will have CEA now -Cont statin -restarted ASA 9. HTN -home BP med fosinopril on hold due to previous hypotension, then was becoming hypertensive-now improved with restarting ZAN inhibitor -Continue replacement lisinopril while here and then return to home meds upon discharge 10. hyperlipidemia -continue statin. ANemia-normocytic, likely of chronic disease, also with recent surgery, stable, hgb 9-10. No evidence of gross bleeding -follow CBC Leukocytosis-WBC increased to 12 K today from 7. Unclear reason, no signs of infection, could be stress response? -Follow CBC Left sided lower back pain/left hip pain/Back pain-secondary to bony mets confirmed on Bone scan -MRI spine confirms -plans for XRT for treatment for pain -pain control with fentanyl patch and oxycodone as above DVT proph - SCDs, Lovenox disposition-discharge hopefully tomorrow if no longer requiring parenteral analgesics, should arrange home health if patient agreeable and will need oxygen PT and OT recommend return home with 24-hour care if possible-daughter will be staying with her Full code
[2017-05-29] MEDS ORDERED: FENTANYL 25 MCG/HR TDSY ONE (13:26)
[2017-05-29] MEDS ORDERED: FENTANYL PATCH REMOVE & WASTE STA (13:58)
[2017-05-29] MEDS ORDERED: FENTANYL 25 MCG/HR TDSY TD SCH (14:00)
[2017-05-29 16:17] VITALS: BP 114/65; PULSE 86; TEMP 36.5; O2SAT 95
[2017-05-29] MEDS: SIMVASTATIN 80 MG TAB PO SCH (20:32)
[2017-05-29 23:10] VITALS: BP 125/66; PULSE 82; TEMP 36.7; O2SAT 96
[2017-05-30] MEDS: LEVOTHYROXINE 50 MCG TAB PO SCH (05:15)
[2017-05-30] MEDS: OXYCODONE HCL IR 5 MG TAB (IMMEDIATE RELEASE) PO PRN ×3 (05:15→12:43)
[2017-05-30 07:19] VITALS: BP 136/74; PULSE 85; TEMP 37.1; O2SAT 96
[2017-05-30] MEDS: CHECK FENTANYL PATCH PLACEMENT SCH ×2 (07:58)
[2017-05-30 08:22] LABS: BASO % 0.2 %; BASO ABS # 0.02 K/uL (0-0.2); EOS % 0.9 %; EOS ABS # 0.12 K/uL (0-0.5); HEMATOCRIT 30.6 % (37-47); HEMOGLOBIN 9.9 g/dL (12.0-16.0); IG# 0.04 K/uL (0.00-0.02); LYMPH ABS # 1.58 K/uL (1.2-3.4); MEAN CELL VOLUME 87.4 fL (80-100); MEAN CORPUSCULAR HEMOGLOBIN 28.3 pg (25-34); MEAN CORPUSCULAR HGB CONC 32.4 g/dl (32-36); MONO ABS # 1.84 K/uL (0.11-0.59); NEUT % 72.6 %; NEUT ABS # 9.55 K/uL (1.4-6.5); PLATELET COUNT 331 K/uL (130-400); RED CELL DISTRIBUTION WIDTH SD 44.6 fL (36.4-46.3); WHITE BLOOD COUNT 13.15 K/uL (4.8-10.8)
[2017-05-30 08:54] LABS: CALCIUM 8.7 mg/dl (8.5-10.1); CREATININE 0.41 mg/dl (0.60-1.20); POTASSIUM 3.9 mmol/L (3.5-5.1)
[2017-05-30] MEDS ORDERED: FENTANYL PATCH REMOVE & WASTE SCH (08:59)
[2017-05-30] MEDS: POLYETHYLENE (MIRALAX) 17 GM PACK PO SCH (09:17)
[2017-05-30] MEDS: BOOST VANILLA PO SCH (09:17)
[2017-05-30] MEDS: LISINOPRIL 20 MG TAB PO SCH (09:17)
[2017-05-30] MEDS: CEROVITE ADV FORMULA TAB PO SCH (09:17)
[2017-05-30] MEDS: ASPIRIN 325 MG ECTAB PO SCH (09:18)
[2017-05-30] MEDS: ENOXAPARIN 40 MG/0.4 ML SYR SQ SCH (09:18)
[2017-05-30] MEDS: KETOROLAC TROMETHAMINE 15 MG/ML VIAL IV. PRN (09:23)
--- NOTE | 2017-05-30 11:40 | Discharge Instructions ---
Discharge Instructions Date of Service May 30, 2017. Admission Reason for Admission: Back Pain,Pericardial Effusion Discharge Discharge Diagnosis / Problem: Metastatic Lung Adenocarcinoma, malignant pleural effusion Discharge Goals Goal(s): Decrease discomfort, Improve function, Increase independence, Improve disease control Activity Recommendations Activity Limitations: per Instructions/Follow-up section Lifting Limitations: no more than 25 pounds, gradually increase as tolerated Exercise/Sports Limitations: as tolerated May Resume Sexual Activity: when tolerated Shower/Bathe: no limitations Driving or Machine Use: resume 1 day after discharge . Instructions / Follow-Up Instructions / Follow-Up You were admitted to [facility] with shortness of breath and diagnosed with a malignant pericardial effusion secondary to lung adenocarcinoma. During your stay here you were treated with supportive care, oxygen, and were evaluated by several teams while in the hospital Thoracic surgery, Dr. Zhou, and underwent a wedge resection on 05/26 Oncology: Dr. Leblanc, follow up will be arranged. Radiation Oncology: Dr. Garcia and were scheduled for radiation therapy to start Friday. Home health services have been arranged for you at home. Medications: Continue taking pain medication as prescribed Continue taking your medications as prescribed. Appointments: Follow up with PCP within 1 week. Follow up with radiation oncology: : Friday 06/02 at 1:30 pm - go to the [facility] [place] entrance 15 minutes prior to your appointment time. Follow up with oncology within 1-2 weeks, Dr. Leblanc. Current Hospital Diet Patient's current hospital diet: AHA Diet (Heart Healthy) Discharge Diet Recommended Diet: AHA Diet (Heart Healthy) Procedures Procedures Performed: Right Video assisted Thoracoscopy with Pericardial Window Pending Studies Studies pending at discharge: no Medical Emergencies . Who to Call and When: Medical Emergencies: If at any time you feel your situation is an emergency, please call 911 immediately. . Non-Emergent Contact Non-Emergency issues call your: Primary Care Provider, Oncologist Call Non-Emergent contact if: you have a fever, temperature is above 100.5, your pain is not controlled, your pain is worsening, your pain is unusual for you, your pain is concerning you, you have any medication questions other concerns with your health. Call 911 or go directly to the Emergency Department if you experience any of the following: Chest pain, chest tightness, shortness of breath, abdominal pain , lightheadedness, dizziness, gastrointestinal bleeding, or have any other concerns regarding your health. . Past History Medical & Surgical History: (1) Adenocarcinoma of lung, stage 4 (2) Pericardial effusion . "Provider Documentation" section prepared by Katia Sy. . [place] Drug Monitoring Program Search Results: no issues identified
[2017-05-30] MEDS ORDERED: Boost PO (12:16)
[2017-05-30] MEDS ORDERED: MRLP17 PO (12:16)
[2017-05-30] MEDS ORDERED: ONDA4TAB10 SL (12:16)
[2017-05-30] MEDS ORDERED: DRGTP25 TD (13:37)
[2017-05-30] MEDS ORDERED: RXC5 PO (13:37)
[2017-05-30] MEDS ORDERED: FOSI40TA2 PO (14:06)
[2017-05-30 14:18] VITALS: BP 136/74; PULSE 85; TEMP 37.1; O2SAT 96
--- NOTE | 2017-05-30 15:37 | Discharge Summary ---
Discharge Summary Date of Service May 30, 2017. Discharge Summary Admission Date: May 22, 2017 at 20:25 Discharge Date: May 30, 2017 Discharge Disposition: Home with services Principal Diagnosis: Metastatic Lung Adenocarcinoma, malignant pericardial effusion Problems/Secondary Diagnoses: Medical Problems: (1) Acute hypoxemic respiratory failure (2) Adenocarcinoma of lung, stage 4 (3) Anemia of chronic disease (4) Back pain (5) COPD (chronic obstructive pulmonary disease) (6) HLD (hyperlipidemia) (7) HTN (hypertension) (8) Hyponatremia (9) Hypothyroidism (10) Intracranial carotid stenosis, bilateral (11) Moderate protein malnutrition (12) PAD (peripheral artery disease) (13) Pericardial effusion Surgical Problems: (1) History of CEA (carotid endarterectomy) - right Immunizations: Have You Had Influenza Vaccine: N/A History of Tetanus Vaccine?: Unknown History of Pneumococcal: Yes Pneumococcal Date: Nov 07, 2005 History of Hepatitis B Vaccine: No Procedures: CT chest without 05/23/17 IMPRESSION: 1. Slight interval increase in size of the solid left upper lobe pulmonary nodule. This remains suspicious for neoplasm. Endobronchial biopsy to be considered versus PET/CT. 2. Emphysema. 3. Irregular subpleural abnormality in the right upper lobe is less focal on the current exam, possibly post inflammatory or scarring. 4. Bibasilar atelectasis greater on the left. 5. Increasing size of the now moderate pericardial effusion. This is of uncertain etiology. Bone scan, nuclear med whole body 05/26/17 IMPRESSION: 1. Moderate focal radiotracer uptake involving the T9 vertebral body without correlate fracture or bone lesion seen on comparison CT chest 05/23/2017 is suspicious for radiographically occult bony metastasis. Follow-up recommended. 2. Additional multifocal areas of abnormal radiotracer uptake about several ribs are also suspicious for metastasis. 3. Intense radiotracer uptake about the left femur intertrochanteric region suggests post-traumatic etiology or metastasis. Correlation with left hip radiographs recommended. Thoracic and lumbar spine with and without 05/27/17 IMPRESSION: 1. Multiple scattered T2 hyperintense, T1 hypointense enhancing lesions seen within the visualized cervical, thoracic and lumbar spine consistent with metastatic disease. These are primarily located within the vertebral bodies with a few scattered lesions within the posterior elements. 2. No fractures identified within the thoracic or lumbar spine. 3. Scattered subcutaneous soft tissue nodules within the posterior thoracic and lumbar region. These likely represent small metastatic deposits. 4. A 1.1 cm T2 hyperintense lesion within the right hepatic lobe. This was obscured by motion artifact on the postcontrast sequences and therefore remains indeterminate. Follow-up PET/CT can be used for further evaluation. Left hip unilateral, 2 views 05/27/17 IMPRESSION: 1. No radiographic evidence of a destructive osseous lesion to suggest metastatic disease. 2. Mild to moderate degenerative changes of the left hip. CXR 1 view portable 05/28/17 FINDINGS: PROCEDURE: Described a small right apical pneumothorax has resolved. Right lung remains clear. There continues to be a left basilar parenchymal density combined with a small left effusion. This is slightly improved. Improved visibility of the left hemidiaphragm. Left upper lung is considered clear. IMPRESSION: Mildly improved exam with a slight decrease in volume of left pleural effusion. No significant right-sided pneumothorax. Thoracic surgery, Dr. David Zhou - 1. Right thoracoscopy with pericardial window. 2. Biopsy of right level 4 node. Consultations: Cardiology Hematology/oncology [place] [facility] Thoracic surgery Medication Reconciliation New Medications: Ondasetron Odt (Zofran Odt) 4 Mg Tab 4 MG SL Q6H for Nausea, #60 TAB Fentanyl (Fentanyl) 25 Mcg Tdsy 25 MCG TD Q72H, #10 PATCH 0 Refills Oxycodone HCl (Oxycodone HCl) 5 Mg Tab 5-10 MG PO Q6H PRN for Pain, #45 TAB 0 Refills Polyethylene (Miralax) 17 Gm Pow 17 GM PO DAILY for 30 Days, #30 DOSE [Boost] () 1 CAN LIQD 1 CAN PO BIDM for 30 Days, #30 DOSE Changed Medications: Fosinopril Sodium (Monopril) 40 Mg Tab 0.5 TAB PO DAILY, #1 TAB (Changed from: 40 MG) please note your dose has been lowered from 40mg to 20mg once a day Continued Medications: Aspirin (Aspirin Ec) 325 Mg Tab 325 MG PO DAILY Levothyroxine Sodium (Levothyroxine Sodium) 50 Mcg Tab 1 TAB PO DAILY, TAB Multiple Minerals W/ Vitamins (Citracal Plus) 1 Tab Tab 1 TAB PO DAILY Multiple Vitamins W/ Minerals (Centrum) 1 Tab Tab 1 TAB PO DAILY Simvastatin (Zocor) 80 Mg Tab 80 MG PO QPM, TAB Discharge Exam The patient was seen and examined this morning. Patient reports feeling well today. She is still having some low back pain and left-sided hip pain which radiates down the back of her left leg to her calf. It is improved with changing her position. She reports overall her pain is much better controlled than it was previously with current pain medication. She denies any feelings of shortness of breath although she is still on 2 L via NC. - 2 step completed today and she does not require home O2 Pt is agreeable to home health services as PT/OT are planning on working with her today, and will be doing steps with her. ROS: Constitutional: No fever, sweats or chills Eyes: No diplopia, no worsening or blurred vision ENT: normal hearing, no trouble swallowing Respiratory: No cough, sputum, dyspnea at rest or on exertion Cardiovascular: No chest pain, tightness or palpitations Abdomen: No pain, nausea, vomiting, diarrhea or constipation Musculoskeletal: See HPI Neurologic: No weakness, numbness/tingling, or balance problems Psychiatric: No anxiety or depression Skin: No rash or itchROS: PE: General: awake, alert, no apparent distress Head: Normocephalic, atraumatic ENT: PERRL, EOMI, no pharyngeal exudate, mucous membranes moist Chest: on 2 L via NC, very faint crackles at bases, no wheeze or rales. Chest tube insertion site appears to be free of any edema or erythema, healing well. Cardiac: Regular rate and rhythm, no murmur, no JVD, normal peripheral pulses, good capillary refill Abdominal: NABS x 4 quadrants, soft, nontender to palpation, no rebound, guarding or tenderness Extremities: Normal inspection, no peripheral edema or erythema, calfs nontender to palpation Psych: Normal mood and affect Neuro: AAO x 3, strength intact bilaterally and related 5/5, no motor deficits, speech is clear, no peripheral sensory deficits Hospital Course Patient is a 77 y/o F Hx HTN, HPL, hypothyroidism, carotid stenosis. The pt was undergoing evaluation for a L CEA. She had a stress echo on the day of admission, however, the initial echocardiogram revealed a significant pericardial effusion. Furthermore, she has had a 25 lb wt loss over the past few months and has a known suspicious L upper lobe 8mm lung mass. She did not c /o CP, N/V, or fevers. She has been SOB for > 2 wks. She was tachycardic with a borderline low BP at the clinical research associate's office and was therefore referred to the ER. Her vital signs have stabilized following IV hydration. She underwent pericardial window on 05/23 and biopsy of a intrathoracic lymph node. The pt also states that she has had excessive pain in her lower back and radiating down her left leg which has been keeping her up at night. 1. Malignant pericardial effusion, s/p pericardial window by Dr. Zhou on -chest tube since removed and incision site healing well. Pleural fluid grossly bloody and cytology with metastatic adenocarcinoma most likely lung primary-to be sent out for further studies which are still pending Lymph node is negative Pleural fluid also with atypical cells consistent with metastatic carcinoma Bone scan consistent with bony metastases in ribs, mid spine, left hip at sites of her pain -Dr. Lance recommends repeat ECHO in 2 weeks which would be around the first week of June-his office will arrange 2. JAELYN lung mass/Metastatic lung adenocarcinoma with mets to bones (ribs, mid spine, left hip) and pericardium-still with significant bony pain -Seen by Heme/Onc and Rad Onc -appreciate consultations -f/u with Oncology in 7-10 days for further evaluation and treatment -MRI spine with multiple vertebral bony metastases as well as soft tissue nodules around the spine -CT simulation was performed in prep for palliative XRT to bony mets - first treatment to begin on Friday 06/02 at 1:30 PM -Pain control with Fentanyl patch 25 mcg, oxycodone for breakthrough, well controlled currently without IV meds. 3. hypotension - 2nd to #1 - resolved. A line removed prior to transfer out of the ICU 4. COPD/acute hypoxic respiratory failure stable, continue nebs/inhalers/ supportive care. -Continue on oxygen mask and/or nasal cannula as needed keep pulse ox greater than 92% -Two-step completed and did not qualify for oxygen needs at home 5. 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 serum osm, urine osm, urine Na consistent with this. TSH normal 6. moderate-severe protein calorie malnutrition -likely secondary to malignancy - continue boost daily 7. hypothyroidism - TSH here normal, -continue synthroid same dose. 8. PAD with ICA stenosis on left - noted. Was scheduled to have CEA in 2 weeks -I have communicated to the vascular surgery team about her current situation but doubt she will have CEA now - follow up as outpatient -Cont statin -restarted ASA 9. HTN -home BP med fosinopril on hold due to previous hypotension, then was becoming hypertensive-now improved with restarting ZAN inhibitor - Fosinopril reduced to 20 mg daily from 40 mg upon discharge. 10. hyperlipidemia -continue statin. 11. anemia - normocytic, likely of chronic disease, also with recent surgery, stable, hgb 9-10. No evidence of gross bleeding -follow CBC 12. Left sided lower back pain/left hip pain/Back pain-secondary to bony mets confirmed on Bone scan -MRI spine confirms -plans for XRT for treatment for pain as above -pain control with fentanyl patch and oxycodone as above Attending Attestation & Discharge Note: Pt seen/examined, chart reviewed, discharge care plan d/w KAYLEE Sy. I agree w/ the morillo components of her discharge summary. 77yo female with history of tobacco dependence, PAD, and recent weight loss who presented after a pre-op work-up for CEA of her left-sided carotid stenosis revealed a very large pericardial effusion. Imaging of the chest was worrisome for a primary lung cancer. After admission she was seen by Dr. David Zhou who ultimately performed thoracoscopy with pericardial window with drain placement. Copious bloody fluid was initially obtained from the surgery and pathology was consistent with metastatic adenocarcinoma. She recovered in the ICU post-surgery and remained stable with ultimate removal of her drain. O2 was weaned off by the time of hospital discharge. Additional imaging as noted above showed extensive bony mets from her lung adenocarcinoma. Due to severe back pain she will undergo palliative radiation starting the week after discharge. Discharge exam - gen - NAD neck - no JVD heart - RRR lungs - mild end-exp wheeze otherwise clear abd - soft, NT chest - former chest tube site closing/closed ext - no edema She will f/u with oncology, rad onc, thoracic surgery, and her PCP all within 1- 2 weeks of discharge for coordination of her care. Cardiology also advised f/u within 2 weeks of discharge. Simon Rutherford MD Total Time Spent: Greater than 30 minutes This includes examination of the patient, discharge planning, medication reconciliation, and communication with other providers. Discharge Instructions Please refer to the electronic Patient Visit Report (Discharge Instructions) for additional information. Follow-Up Follow up with PCP within 1 week. Follow up with radiation oncology: : Friday 06/02 at 1:30 pm - go to the [facility] entrance 15 minutes prior to your appointment time. Follow up with oncology within 1-2 weeks, Dr. Leblanc. Follow up with cardiology, Dr. Madi Lance, within 2 weeks Additional Copies To Hany Leblanc D.O.; Madi Lance, ; Daron Harris M.D.; David Zhou MD
[2017-06-01] MEDS ORDERED: FENTANYL PATCH REMOVE & WASTE SCH (13:59)
[2017-06-02] MEDS ORDERED: FURO-85 PO (14:34)
== END 2017-05-30 15:34 | disposition home health service (06) | DRG 166 ==
LOC: C.EDB 16:56 → C.EDINP 20:25 → ENRESERV 05-23 01:14 → C.2E 05-23 03:07 → ENRESERV 05-23 16:52 → C.MSICU 05-23 17:17 → C.MSN 05-25 09:52 → ENRESERV 05-25 09:59
PROVIDERS: ADMIT Internal Medicine; ATTEND Internal Medicine
PROC: 03HC33Z Insertion of Infusion Device into Left Radial Artery, Percutaneous Approach (ICD-10-PCS; principal; 2017-05-23 13:30)
PROC: 07B74ZX Excision of Thorax Lymphatic, Percutaneous Endoscopic Approach, Diagnostic (ICD-10-PCS; principal; 2017-05-23 13:30)
PROC: 0W9D40Z Drainage of Pericardial Cavity with Drainage Device, Percutaneous Endoscopic Approach (ICD-10-PCS; principal; 2017-05-23 13:30)
DX: C34.92 Malignant neoplasm of unspecified part of left bronchus or lung (principal); E43 Unspecified severe protein-calorie malnutrition; J96.01 Acute respiratory failure with hypoxia; I31.3 Pericardial effusion (noninflammatory); J91.0 Malignant pleural effusion; E22.2 Syndrome of inappropriate secretion of antidiuretic hormone; C79.51 Secondary malignant neoplasm of bone; I10 Essential (primary) hypertension; E78.5 Hyperlipidemia, unspecified; E03.9 Hypothyroidism, unspecified; J44.9 Chronic obstructive pulmonary disease, unspecified; I95.9 Hypotension, unspecified; I73.9 Peripheral vascular disease, unspecified; M54.5 Low back pain; M79.605 Pain in left leg; Z79.82 Long term (current) use of aspirin; Z79.899 Other long term (current) drug therapy; F17.210 Nicotine dependence, cigarettes, uncomplicated

== ENCOUNTER 2017-06-16 06:34 | Emergency (ER) | payer BC ==
[~2017-06-16] VITALS: Ht 170.2 cm; Wt 63.5 kg
[~2017-06-16 06:34] MED LIST changes: -ASPEC325 PO; +ASPI325T39 PO; +Boost PO; -CLTP PO; +DRGTP25 TD; -FOSI20TA2 PO; +FOSI40TA2 PO; -FSM70 PO; +FURO-85 PO; +LEVO50TA6 PO; +MRLP17 PO; -MULT-506 PO; +MULT-663 PO; +MULTTAB5 PO; +ONDA4TAB10 SL; +RXC5 PO; -SIMV40TA2 PO; +SIMV80TA2 PO; -SYN50 PO
[2017-06-16 06:38] VITALS: TEMP 36.6; Ht 170.2 cm; Wt 63.5 kg
[2017-06-16] MEDS ORDERED: MoRPHine SULFATE 4 MG/ML 1 ML CARP\\VIAL IV STA ×2 (07:07→09:42)
[2017-06-16] MEDS ORDERED: SODIUM CHLORIDE 0.9% 1000ML 1,000 ML IV STA (07:07)
[2017-06-16 07:16] LABS: BASO % 0.2 %; BASO ABS # 0.02 K/uL (0-0.2); EOS % 0.5 %; EOS ABS # 0.05 K/uL (0-0.5); HEMATOCRIT 35.6 % (37-47); HEMOGLOBIN 11.6 g/dL (12.0-16.0); IG# 0.02 K/uL (0.00-0.02); LYMPH % 6.4 %; LYMPH ABS # 0.65 K/uL (1.2-3.4); MEAN CELL VOLUME 83.6 fL (80-100); MEAN CORPUSCULAR HEMOGLOBIN 27.2 pg (25-34); MEAN CORPUSCULAR HGB CONC 32.6 g/dl (32-36); MEAN PLATELET VOLUME 9.4 fL (7.4-10.4); MONO % 17.8 %; MONO ABS # 1.81 K/uL (0.11-0.59); NEUT % 74.9 %; NEUT ABS # 7.61 K/uL (1.4-6.5); PLATELET COUNT 365 K/uL (130-400); RED CELL DISTRIBUTION WIDTH CV 14.7 % (11.5-14.5); RED CELL DISTRIBUTION WIDTH SD 45.1 fL (36.4-46.3); WHITE BLOOD COUNT 10.16 K/uL (4.8-10.8)
[2017-06-16 07:23] LABS: ALBUMIN 2.6 gm/dl (3.4-5.0); BLOOD UREA NITROGEN 18 mg/dl (7-18); CALCIUM 9.2 mg/dl (8.5-10.1); CARBON DIOXIDE 29 mmol/L (21-32); GLUCOSE 122 mg/dl (70-99); LIPASE 76 U/L (73-393); POTASSIUM 3.3 mmol/L (3.5-5.1); SODIUM 134 mmol/L (136-145)
[2017-06-16 07:25] LABS: INR 1.1 (0.9-1.1); PTT PATIENT 26.5 SECONDS (21.0-31.0)
[2017-06-16 07:29] LABS: ALKALINE PHOSPHATASE 78 U/L (45-117); ALT/SGPT 14 U/L (12-78); AST/SGOT 13 U/L (15-37); CKMB < 0.5 ng/ml (0.5-3.6); TOTAL PROTEIN 7.4 gm/dl (6.4-8.2)
--- NOTE | 2017-06-16 07:42 | DIAGNOSTIC IMAGING REPORT ---
CHEST ONE VIEW PORTABLE CLINICAL HISTORY: Evaluate Fever/Sepsis COMPARISON STUDY: Chest radiograph May 28, 2017. FINDINGS: There is no pneumothorax. There is persistent left basilar opacity with a left pleural effusion. There is no evidence for pulmonary edema. There is possible visualization of the suspicious left upper lobe nodule shown on CT of May 23, 2017. Underlying emphysema is present. IMPRESSION: 1. Small left pleural effusion with left basilar opacity which may reflect pneumonia or atelectasis. 2. Suspected visualization of the suspicious left upper lobe nodule, better depicted on prior chest CT. 3. Emphysema. Electronically signed by: Yogi Saldana M.D. 06/16/2017 7:40 AM Dictated Date/Time: 06/16/2017 7:36 AM
[2017-06-16] MEDS ORDERED: OPTIRAY 320 IV PRN (09:00)
--- NOTE | 2017-06-16 09:12 | DIAGNOSTIC IMAGING REPORT ---
(CHEST FOR PE) ANGIO WITH CT DOSE: 359.06 mGycm HISTORY: 77 years-old Female with presents with acute atypical chest pain and history of lung cancer. History of bony metastatic disease TECHNIQUE: Multiple CTA images of the chest were obtained after the intravenous administration of 94 ml Optiray 320. Coronal and sagittal MIPS were obtained from the axial data set and were submitted for review. A dose lowering technique was utilized adhering to the principles of ALARA. COMPARISON: Chest radiograph of same day, thoracic spine MRI 05/27/2017, chest CT 05/23/2017, CTA of the neck 04/14/2017. FINDINGS: CTA: There is mild to moderate multichamber cardiac enlargement. Trace pericardial effusion, decreased in size from comparison. Three-vessel distribution of coronary arterial disease. Thoracic aorta demonstrates moderate atherosclerosis and is normal in both course and caliber without aneurysm or dissection. There is an 8 x 7 x 10 mm filling defect noted within the innominate artery, nicely seen on image 213 of series 4 and image 30 of series 400 which causes high-grade narrowing or complete occlusion. There is patency of the right common carotid and subclavian arteries as seen. This finding appears new from CTA neck dated 04/14/2017. The pulmonary arterial tree is opacified to the level of the subsegmental branches and demonstrates no focal filling defects to suggest pulmonary thromboembolic disease. CT CHEST: Multinodular thyroid goiter with heterogeneous 1.3 cm nodule of the anterior right thyroid. Enlarged prevascular lymph nodes measure up to 1.3 cm in short axis. AP window lymph nodes measure up to 1.3 cm. These findings appear unchanged from comparison and are suspicious for metastasis. Small left pleural effusion. Subsegmental dependent consolidative opacities are present bilaterally. Moderate to advanced upper lobe predominant centrilobular emphysema without pneumothorax. Biapical pleural-parenchymal scarring. Unchanged size and appearance of the 9 x 7 mm nodule with lobulated and somewhat spiculated margins involving the apical posterior segment left upper lobe, image 220 series 4. Again, this is seen abutting the adjacent major fissure. Patchy consolidative opacities are noted within the left lower lobe with areas of mucosal secretions from the bilateral lower lobe bronchi with associated bronchial wall thickening. Small linear area of probable pleural parenchymal scarring is again noted in the right upper lobe, image 177 which appears unchanged. Small sliding-type hiatal hernia with mild wall thickening of the distal esophagus. 1.9 x 1.3 cm indeterminate lesion of the left adrenal gland appears unchanged. 1.4 cm subcutaneous lesion is partially imaged involving the paraspinal tissues, image 1 of series 4 with additional similar-appearing lesion seen on image 117 measuring 6 mm. Additional lesions are noted on image 214 and image 208. The previously described metastatic lesions about the spine are better seen on comparison MRI. IMPRESSION: 1. 10 mm soft tissue attenuating filling defect of the innominate artery is new from comparison CTA of the neck 04/14/2017 and causes focal high-grade narrowing with patency of the right common carotid and subclavian arteries. This appears atypical for atheromatous plaque and is concerning for possible intraluminal thrombus. No acute aortic pathology or evidence of pulmonary thromboembolic disease. 2. Small left pleural effusion with left greater then right bibasilar consolidative opacities suspicious for pneumonitis and or atelectasis. 3. Bilateral bronchial wall thickening suggests bronchitis with areas of mucous plugging within the bilateral lower lobes. 4. Unchanged size and appearance of the suspicious nodule of the apical posterior segment left upper lobe, 9 mm. 5. Unchanged mediastinal adenopathy and subcutaneous lesions of the back suspicious for metastasis. 6. Metastatic bone lesions are better seen on comparison MRI. The above report was generated using voice recognition software. It may contain grammatical, syntax or spelling errors. Electronically signed by: Jed Michael M.D. 06/16/2017 9:10 AM Dictated Date/Time: 06/16/2017 8:53 AM
[2017-06-16] MEDS ORDERED: LIDOCAINE HCL 2% VISC SOLN 20 ML UDC PO STA (10:13)
[2017-06-16] MEDS ORDERED: ALUMINUM/MAGNESIUM SUSP 30 ML UDC PO STA (10:13)
[2017-06-16 11:08] VITALS: O2SAT 88
[2017-06-16 13:03] VITALS: BP 120/78; PULSE 97; O2SAT 95
--- NOTE | 2017-06-16 14:09 | EMERGENCY ROOM VISIT NOTE ---
History Report prepared by Victoria: Jacques Pavon Under the Supervision of: Dr. Eddi Robles D.O. First contact with patient: 06:50 Chief Complaint: CHEST PAIN Stated Complaint: CHEST PAIN Nursing Triage Summary: chest pressure, upper abdominal pain, shortness of breath recently started on chemo and radiation recently had "fluid removed from around her heart about 2 weeks ago" History of Present Illness The patient is a 77 year old female who presents to the Emergency Room with complaints of constant right-sided chest pain beginning last night. She describes her pain as "crushing". The patient also complains of a productive cough and nausea. Her cough produces mucous and blood. She recently began chemotherapy and radiation treatments for lung cancer with metastases to the bone. The patient has a history of paracardial effusion requiring draining two weeks ago. She is on a fentanyl patch and oxycodone (every six hours) at home. She is not on supplemental oxygen at home. The patient has not been eating much for the past several days. She has been drinking a little less water than normal. Eating and drinking causes her to feel nauseous. The patient is on aspirin, but denies any other blood thinning medication usage. She states that she had some increased leg swelling in her ankles last week, but they appear normal now. Source of History: patient Onset: Last night Position: chest (right) Quality: other ("crushing") Timing: constant Associated Symptoms: + cough (produces mucous and blood), + nausea Review of Systems See HPI for pertinent positives & negatives. A total of 10 systems reviewed and were otherwise negative. Past Medical & Surgical Medical Problems: (1) Acute hypoxemic respiratory failure (2) Adenocarcinoma of lung, stage 4 (3) Anemia of chronic disease (4) Back pain (5) COPD (chronic obstructive pulmonary disease) (6) HLD (hyperlipidemia) (7) HTN (hypertension) (8) Hyponatremia (9) Hypothyroidism (10) Intracranial carotid stenosis, bilateral (11) Moderate protein malnutrition (12) PAD (peripheral artery disease) (13) Pericardial effusion Surgical Problems: (1) History of CEA (carotid endarterectomy) Family History Diabetes mellitus Hypertension Social History Smoking Status: Former Smoker Alcohol Use: occasionally Drug Use: none Marital Status: Housing Status: lives with significant other Occupation Status: unemployed Current/Historical Medications Scheduled Aspirin (Aspirin Ec), 325 MG PO DAILY Fentanyl (Fentanyl), 25 MCG TD Q72H Fosinopril Sodium (Monopril), 0.5 TAB PO DAILY Furosemide (Lasix), 20 MG PO DAILY Levothyroxine Sodium (Levothyroxine Sodium), 50 MCG PO DAILY Multiple Minerals W/ Vitamins (Citracal Plus), 1 TAB PO DAILY Multiple Vitamins W/ Minerals (Centrum), 1 TAB PO DAILY Ondasetron Odt (Zofran Odt), 4 MG SL Q6H Polyethylene (Miralax), 17 GM PO DAILY Simvastatin (Zocor), 80 MG PO QPM [Boost], 1 CAN PO BIDM Scheduled PRN Oxycodone HCl (Oxycodone HCl), 5-10 MG PO Q6H PRN for Pain Allergies Coded Allergies: No Known Allergies (Verified , NONE, 06/16/17) Physical Exam Vital Signs Date Time Temp Pulse Resp B/P (MAP) Pulse Ox O2 Delivery O2 Flow Rate FiO2 06/16/17 13:03 97 20 120/78 95 06/16/17 11:10 90 22 149/63 92 Nasal Cannula 2.0 06/16/17 11:08 88 Nasal Cannula 06/16/17 10:48 96 06/16/17 09:27 99 22 138/76 96 Room Air 06/16/17 07:38 97 22 129/64 96 Nasal Cannula 2.0 06/16/17 07:17 80 22 144/79 95 Nasal Cannula 2.0 06/16/17 07:01 101 20 138/78 96 Room Air 06/16/17 06:50 100 06/16/17 06:50 97 Room Air 06/16/17 06:45 Nasal Cannula 2.0 06/16/17 06:44 101 20 155/74 97 Nasal Cannula 2.0 06/16/17 06:38 36.6 102 22 82/55 89 Room Air Physical Exam CONSTITUTIONAL/VITAL SIGNS: Reviewed / noted above. GENERAL: Non-toxic in appearance. INTEGUMENTARY: Warm, dry, and [place]. HEAD: Normocephalic. EYES: without scleral icterus or trauma. ENT/OROPHARYNX: clear and moist. LYMPHADENOPATHY/NECK: Is supple without lymphadenopathy or meningismus. RESPIRATORY: Lungs clear and equal. CARDIOVASCULAR: Regular rate and rhythm. GI/ABDOMEN: Soft and nontender. No organomegaly or pulsatile mass. No rebound or guarding. Normal bowel sounds. EXTREMITIES: Warm and well perfused. BACK: No CVA tenderness. NEUROLOGICAL: Intact without focal deficits. PSYCHIATRIC: normal affect. MUSCULOSKELETAL: Normally developed with good muscle tone. Medical Decision & Procedures ER Provider Diagnostic Interpretation: Radiology results as stated below per my review and radiologist interpretation: (CHEST FOR PE) ANGIO WITH FINDINGS: CTA: There is mild to moderate multichamber cardiac enlargement. Trace pericardial effusion, decreased in size from comparison. Three-vessel distribution of coronary arterial disease. Thoracic aorta demonstrates moderate atherosclerosis and is normal in both course and caliber without aneurysm or dissection. There is an 8 x 7 x 10 mm filling defect noted within the innominate artery, nicely seen on image 213 of series 4 and image 30 of series 400 which causes high-grade narrowing or complete occlusion. There is patency of the right common carotid and subclavian arteries as seen. This finding appears new from CTA neck dated 04/14/2017. The pulmonary arterial tree is opacified to the level of the subsegmental branches and demonstrates no focal filling defects to suggest pulmonary thromboembolic disease. CT CHEST: Multinodular thyroid goiter with heterogeneous 1.3 cm nodule of the anterior right thyroid. Enlarged prevascular lymph nodes measure up to 1.3 cm in short axis. AP window lymph nodes measure up to 1.3 cm. These findings appear unchanged from comparison and are suspicious for metastasis. Small left pleural effusion. Subsegmental dependent consolidative opacities are present bilaterally. Moderate to advanced upper lobe predominant centrilobular emphysema without pneumothorax. Biapical pleural-parenchymal scarring. Unchanged size and appearance of the 9 x 7 mm nodule with lobulated and somewhat spiculated margins involving the apical posterior segment left upper lobe, image 220 series 4. Again, this is seen abutting the adjacent major fissure. Patchy consolidative opacities are noted within the left lower lobe with areas of mucosal secretions from the bilateral lower lobe bronchi with associated bronchial wall thickening. Small linear area of probable pleural parenchymal scarring is again noted in the right upper lobe, image 177 which appears unchanged. Small sliding-type hiatal hernia with mild wall thickening of the distal esophagus. 1.9 x 1.3 cm indeterminate lesion of the left adrenal gland appears unchanged. 1.4 cm subcutaneous lesion is partially imaged involving the paraspinal tissues, image 1 of series 4 with additional similar-appearing lesion seen on image 117 measuring 6 mm. Additional lesions are noted on image 214 and image 208. The previously described metastatic lesions about the spine are better seen on comparison MRI. IMPRESSION: 1. 10 mm soft tissue attenuating filling defect of the innominate artery is new from comparison CTA of the neck 04/14/2017 and causes focal high-grade narrowing with patency of the right common carotid and subclavian arteries. This appears atypical for atheromatous plaque and is concerning for possible intraluminal thrombus. No acute aortic pathology or evidence of pulmonary thromboembolic disease. 2. Small left pleural effusion with left greater then right bibasilar consolidative opacities suspicious for pneumonitis and or atelectasis. 3. Bilateral bronchial wall thickening suggests bronchitis with areas of mucous plugging within the bilateral lower lobes. 4. Unchanged size and appearance of the suspicious nodule of the apical posterior segment left upper lobe, 9 mm. 5. Unchanged mediastinal adenopathy and subcutaneous lesions of the back suspicious for metastasis. 6. Metastatic bone lesions are better seen on comparison MRI. The above report was generated using voice recognition software. It may contain grammatical, syntax or spelling errors. Electronically signed by: Jed Michael M.D. 06/16/2017 9:10 AM CHEST ONE VIEW PORTABLE FINDINGS: There is no pneumothorax. There is persistent left basilar opacity with a left pleural effusion. There is no evidence for pulmonary edema. There is possible visualization of the suspicious left upper lobe nodule shown on CT of May 23, 2017. Underlying emphysema is present. IMPRESSION: 1. Small left pleural effusion with left basilar opacity which may reflect pneumonia or atelectasis. 2. Suspected visualization of the suspicious left upper lobe nodule, better depicted on prior chest CT. 3. Emphysema. Electronically signed by: Yogi Saldana M.D. 06/16/2017 7:40 AM Laboratory Results 06/16/17 06:43 Red Blood Count 4.26, Mean Corpuscular Volume 83.6, Mean Corpuscular Hemoglobin 27.2, Mean Corpuscular Hemoglobin Concent 32.6, Mean Platelet Volume 9.4, Neutrophils (%) (Auto) 74.9, Lymphocytes (%) (Auto) 6.4, Monocytes (%) (Auto) 17.8, Eosinophils (%) (Auto) 0.5, Basophils (%) (Auto) 0.2, Neutrophils # (Auto ) 7.61, Lymphocytes # (Auto) 0.65, Monocytes # (Auto) 1.81, Eosinophils # (Auto ) 0.05, Basophils # (Auto) 0.02 06/16/17 06:43 Test 06/16/17 06:43 06/16/17 11:15 White Blood Count 10.16 K/uL (4.8-10.8) Red Blood Count 4.26 M/uL (4.2-5.4) Hemoglobin 11.6 g/dL (12.0-16.0) Hematocrit 35.6 % (37-47) Mean Corpuscular Volume 83.6 fL (80-100) Mean Corpuscular Hemoglobin 27.2 pg (25-34) Mean Corpuscular Hemoglobin Concent 32.6 g/dl (32-36) Platelet Count 365 K/uL (130-400) Mean Platelet Volume 9.4 fL (7.4-10.4) Neutrophils (%) (Auto) 74.9 % Lymphocytes (%) (Auto) 6.4 % Monocytes (%) (Auto) 17.8 % Eosinophils (%) (Auto) 0.5 % Basophils (%) (Auto) 0.2 % Neutrophils # (Auto) 7.61 K/uL (1.4-6.5) Lymphocytes # (Auto) 0.65 K/uL (1.2-3.4) Monocytes # (Auto) 1.81 K/uL (0.11-0.59) Eosinophils # (Auto) 0.05 K/uL (0-0.5) Basophils # (Auto) 0.02 K/uL (0-0.2) RDW Standard Deviation 45.1 fL (36.4-46.3) RDW Coefficient of Variation 14.7 % (11.5-14.5) Immature Granulocyte % (Auto) 0.2 % Immature Granulocyte # (Auto) 0.02 K/uL (0.00-0.02) Prothrombin Time 11.5 SECONDS (9.0-12.0) Prothromb Time International Ratio 1.1 (0.9-1.1) Activated Partial Thromboplast Time 26.5 SECONDS (21.0-31.0) Partial Thromboplastin Ratio 1.0 Anion Gap 7.0 mmol/L (3-11) Est Creatinine Clear Calc Drug Dose 75.2 ml/min Estimated GFR () 101.2 Estimated GFR (Non- 87.3 BUN/Creatinine Ratio 29.9 (10-20) Calcium Level 9.2 mg/dl (8.5-10.1) Total Bilirubin 0.5 mg/dl (0.2-1) Direct Bilirubin 0.2 mg/dl (0-0.2) Aspartate Amino Transf (AST/SGOT) 13 U/L (15-37) Alanine Aminotransferase (ALT/SGPT) 14 U/L (12-78) Alkaline Phosphatase 78 U/L (45-117) Total Creatine Kinase 14 U/L (26-192) Creatine Kinase MB < 0.5 ng/ml (0.5-3.6) Creatine Kinase MB Ratio (0-3.0) Troponin I < 0.015 ng/ml (0-0.045) Total Protein 7.4 gm/dl (6.4-8.2) Albumin 2.6 gm/dl (3.4-5.0) Lipase 76 U/L (73-393) Urine Color YELLOW Urine Appearance CLEAR (CLEAR) Urine pH 8.0 (4.5-7.5) Urine Specific [place] > 1.045 (1.000-1.030) Urine Protein NEG (NEG) Urine Glucose (UA) NEG (NEG) Urine Ketones NEG (NEG) Urine Occult Blood NEG (NEG) Urine Nitrite NEG (NEG) Urine Bilirubin NEG (NEG) Urine Urobilinogen NEG (NEG) Urine Leukocyte Esterase NEG (NEG) Laboratory results as stated above per my review. Medications Administered Medications (Trade) Dose Ordered Sig/[place] Route Start Time Stop Time Status Last Admin Dose Admin Morphine Sulfate (MoRPHine SULFATE INJ) 4 mg NOW STAT IV 06/16/17 07:07 06/16/17 07:09 DC 06/16/17 07:18 4 MG Sodium Chloride 1,000 ml @ 250 mls/hr Q4H STAT IV 06/16/17 07:07 06/16/17 11:06 DC 06/16/17 07:07 250 MLS/HR Morphine Sulfate (MoRPHine SULFATE INJ) 4 mg NOW STAT IV 06/16/17 09:42 06/16/17 09:43 DC 06/16/17 09:46 4 MG Al Hydroxide/Mg Hydroxide (Maalox Susp) 30 ml NOW STAT PO 06/16/17 10:13 06/16/17 10:15 DC 06/16/17 10:28 30 ML Lidocaine HCl (Viscous Lidocaine 2% Soln) 10 ml NOW STAT PO 06/16/17 10:13 06/16/17 10:15 DC 06/16/17 10:29 10 ML ECG Per My Interpretation Indication: chest pain Rate (beats per minute): 104 Rhythm: sinus tachycardia Findings: no ectopy, other (No ST elevations. ) ED Course 0657: Previous medical records were reviewed. The patient was evaluated in room B2. A complete history and physical examination was performed. 0707: Ordered Sodium Chloride 1000 ml @ 250 mls/hr IV, Morphine Sulfate 4 mg IV. 0942: Ordered Morphine Sulfate 4 mg IV. 1013: Ordered GI Cocktail 24 ml PO. 1245: On reevaluation, the patient is resting comfortably. I discussed the results and findings with the patient. She verbalized agreement of the treatment plan. The patient was discharged home. Medical Decision The differential was considered includes acute myocardial infarction, acute coronary syndrome, myocarditis, pericarditis, pericardial effusions/tamponade, esophageal perforation, thoracic aortic dissection, pulmonary embolism, pneumonia, pneumothorax, pancreatitis, shingles, acute cholecystitis, perforated abdominal viscus. This is a 69-year-old female who presents to the ED with a chief complaint of chest discomfort. The patient reports a history of metastatic lung cancer with metastases to the bones and ribs and spine. The patient just finished a 10 day course of radiation therapy to her chest. Her last day of radiation therapy was 3 days ago. She reports generalized chest discomfort. The patient reported having a cough this morning with a small amount of phlegm and some strings of blood. She is currently on fentanyl patch and oxycodone. She does not require home oxygen. Her family also reports decreased oral intake over the past couple of days. She has been drinking fluids. Her oncologist is Dr. Jan Aj. The patient's exam was relatively unremarkable. The location of her radiation was directed through the sternal area. Chest x-ray reveals left base pneumonia versus atelectasis. CBC was normal, troponin was negative, complete metabolic panel was unremarkable. EKG shows an sinus tach without ischemic changes. A CT scan of the chest reveals a 10 mm filling defect in the innominate artery. According to the family, this was already discovered previously but has been put on hold for her oncology issues. The patient has some subtle changes in the bases that could be related to atelectasis or pneumonia. Based on the recent radiation therapy and discomfort in the chest, I suspect this is more likely atelectasis than pneumonia. She has not had fevers and this morning was her only cough and this could be related to some irritation from the radiation therapy. Her white blood cell count is normal. The patient was treated with IV fluids and IV morphine. I spoke with Dr. Rhina Beckham about the results of the test. He advised that the patient can increase her fentanyl patch as well as the amount of oxycodone that she is taking. According to the patient, she is only taken 1 dose of oxycodone yesterday evening and nothing today. The patient was also given a GI cocktail. She does have Magic swizzle at home. The patient is felt to be stable for discharge and outpatient follow-up. Dr. Carbajal advised the patient to call his office for follow-up Medication Reconcilliation Current Medication List: was personally reviewed by me Blood Pressure Screening Patient's blood pressure: Normal blood pressure Blood pressure disposition: Did not require urgent referral Impression Primary Impression: Chest pain Additional Impression: Metastatic adenocarcinoma Scribe Attestation The scribe's documentation has been prepared under my direction and personally reviewed by me in its entirety. I confirm that the note above accurately reflects all work, treatment, procedures, and medical decision making performed by me. Departure Information Dispostion Home / Self-Care Referrals Daron Harris M.D. (PCP) Forms Call Back Authorization, HOME CARE DOCUMENTATION FORM, IMPORTANT VISIT INFORMATION Patient Instructions My [facility] Additional Instructions Increase fentanyl patch to 25 mcg 2. May take oxycodone 2 tablets every 4 hours as needed for pain. Follow-up with your doctor for further care and evaluation in 1-2 days. Return to the emergency department for worsening or new symptoms or any concerns. You have been examined and treated today on an emergency basis only. This is not a substitute for, or an effort to provide, complete comprehensive medical care. It is impossible to recognize and treat all injuries or illnesses in a single emergency department visit. It is therefore important that you follow up closely with your doctor. Call as soon as possible for an appointment. Problem Qualifiers
== END 2017-06-16 13:07 | disposition home or self-care (01) ==
LOC: EDBD 06:34 → C.EDB 06:38
DX: R07.9 Chest pain, unspecified (principal); C34.90 Malignant neoplasm of unspecified part of unspecified bronchus or lung; C79.51 Secondary malignant neoplasm of bone; J44.9 Chronic obstructive pulmonary disease, unspecified; E78.5 Hyperlipidemia, unspecified; I10 Essential (primary) hypertension; E03.9 Hypothyroidism, unspecified; E87.1 Hypo-osmolality and hyponatremia; I73.9 Peripheral vascular disease, unspecified; Z87.891 Personal history of nicotine dependence; Z79.82 Long term (current) use of aspirin; Z79.899 Other long term (current) drug therapy

== ENCOUNTER → 2017-07-03 | Outpatient (CLI) | payer BC ==
[2017-07-03 12:54] LABS: BASO % 0.2 %; BASO ABS # 0.02 K/uL (0-0.2); EOS % 0.4 %; EOS ABS # 0.04 K/uL (0-0.5); HEMATOCRIT 33.2 % (37-47); HEMOGLOBIN 10.4 g/dL (12.0-16.0); IG# 0.03 K/uL (0.00-0.02); LYMPH % 12.6 %; LYMPH ABS # 1.25 K/uL (1.2-3.4); MEAN CELL VOLUME 80.2 fL (80-100); MEAN CORPUSCULAR HEMOGLOBIN 25.1 pg (25-34); MEAN CORPUSCULAR HGB CONC 31.3 g/dl (32-36); MEAN PLATELET VOLUME 9.8 fL (7.4-10.4); MONO % 12.6 %; MONO ABS # 1.25 K/uL (0.11-0.59); NEUT % 73.9 %; NEUT ABS # 7.32 K/uL (1.4-6.5); PLATELET COUNT 309 K/uL (130-400); RED CELL DISTRIBUTION WIDTH CV 15.7 % (11.5-14.5); RED CELL DISTRIBUTION WIDTH SD 46.1 fL (36.4-46.3); WHITE BLOOD COUNT 9.91 K/uL (4.8-10.8)
[2017-07-03 14:06] LABS: ALBUMIN 2.4 gm/dl (3.4-5.0); ALT/SGPT 14 U/L (12-78); AST/SGOT 17 U/L (15-37); BLOOD UREA NITROGEN 15 mg/dl (7-18); CALCIUM 8.6 mg/dl (8.5-10.1); CARBON DIOXIDE 27 mmol/L (21-32); CREATININE 0.64 mg/dl (0.60-1.20); GLUCOSE 120 mg/dl (70-99); SODIUM 131 mmol/L (136-145)
[2017-07-03 14:16] LABS: ALKALINE PHOSPHATASE 83 U/L (45-117); TOTAL PROTEIN 7.1 gm/dl (6.4-8.2)
== END | disposition home or self-care (01) ==
LOC: C.LABBFT 10:00
PROVIDERS: ATTEND Internal Medicine Hematology & Oncology
DX: C34.90 Malignant neoplasm of unspecified part of unspecified bronchus or lung (principal)

== ENCOUNTER 2017-07-15 14:30 | Inpatient (IN) | payer BC, OTHER ==
[~2017-07-15] VITALS: Ht 170.2 cm; Wt 57.6 kg
[~2017-07-15 14:30] MED LIST changes: -ASPI325T39 PO; +FNTTP50 TOP; -FURO-85 PO; -LEVO50TA6 PO; -MULT-663 PO; -MULTTAB5 PO; -SIMV80TA2 PO
[2017-07-15] MEDS ORDERED: FURO-85 PO (14:34)
[2017-07-15] MEDS ORDERED: SODIUM CHLORIDE 0.9% 1000ML 1,000 ML IV STA (14:51)
--- NOTE | 2017-07-15 14:58 | EMERGENCY ROOM VISIT NOTE ---
History Report prepared by Victoria: Darling Mancini Under the Supervision of: Dr. Thierry Cuadra M.D. First contact with patient: 14:43 Chief Complaint: DEHYDRATION Stated Complaint: DEHYDRATION - SENT FROM RADIATION ONC History of Present Illness The patient is a 77 year old white female with a past medical history of stage 4 lung adenocarcinoma, COPD, HLD, HTN, hypothyroidism, carotid endarterectomy who presents to the ED with a cc of worsening SOB beginning couple days ago. Positive weakness, decreased appetite, mild abdominal pain. Negative cough, fever, chills, urinary symptoms, change in bowel movement. She does smoke. She last had Keytruda 1 week ago. Source of History: patient Onset: couple days ago Position: chest Quality: other (SOB) Timing: worsening Associated Symptoms: + abdominal pain, + weakness, No fevers, No chills, No cough, No urinary symptoms Note: Pt reports decreased appetite. Review of Systems See HPI for pertinent positives and negatives. A total of ten systems were reviewed and were otherwise negative. Past Medical & Surgical Medical Problems: (1) Acute hypoxemic respiratory failure (2) Adenocarcinoma of lung, stage 4 (3) Anemia of chronic disease (4) Back pain (5) COPD (chronic obstructive pulmonary disease) (6) HLD (hyperlipidemia) (7) HTN (hypertension) (8) Hyponatremia (9) Hypothyroidism (10) Intracranial carotid stenosis, bilateral (11) Moderate protein malnutrition (12) PAD (peripheral artery disease) (13) Pericardial effusion (14) ST segment changes on electrocardiogram Surgical Problems: (1) History of CEA (carotid endarterectomy) Family History Diabetes mellitus Hypertension Social History Smoking Status: Current Every Day Smoker Alcohol Use: occasionally Drug Use: none Marital Status: Housing Status: lives with significant other Occupation Status: unemployed Current/Historical Medications Scheduled Aspirin (Aspirin Ec), 325 MG PO DAILY Fentanyl (Duragesic), 50 MCG TOP [id number] Fosinopril Sodium (Monopril), 20 MG PO DAILY Furosemide (Lasix), 20 MG PO DAILY Levothyroxine Sodium (Levothyroxine Sodium), 50 MCG PO DAILY Multiple Minerals W/ Vitamins (Citracal Plus), 1 TAB PO DAILY Multiple Vitamins W/ Minerals (Centrum), 1 TAB PO DAILY Nutritional Supplements (Boost), 1 CAN PO BIDM Simvastatin (Zocor), 80 MG PO QPM Scheduled PRN Ondasetron Odt (Zofran Odt), 4 MG SL Q6H PRN for Nausea Oxycodone HCl (Oxycodone HCl), 5-10 MG PO Q6H PRN for Pain Polyethylene Glycol 3350 (Bulk (Polyethylene Glycol 3350), 17 GM PO DAILY PRN for Constipation Allergies Coded Allergies: No Known Allergies (Verified , NONE, 06/16/17) Physical Exam Vital Signs Date Time Temp Pulse Resp B/P (MAP) Pulse Ox O2 Delivery O2 Flow Rate FiO2 07/15/17 18:19 106 18 91/60 93 Nasal Cannula 3.0 07/15/17 18:00 103 22 81/53 94 Nasal Cannula 3.0 07/15/17 17:18 103 19 85/57 91 Nasal Cannula 3.0 07/15/17 16:45 109 17 108/69 93 Nasal Cannula 3.0 07/15/17 16:10 101 22 89/59 Nasal Cannula 3.0 07/15/17 15:48 102 16 93/60 94 Nasal Cannula 3.0 07/15/17 15:29 100 07/15/17 15:18 92 Nasal Cannula 3.0 07/15/17 15:17 100 17 76/51 86 Room Air 07/15/17 15:07 Room Air 07/15/17 15:07 103 16 81/53 07/15/17 14:38 36.7 107 16 62/45 92 Room Air Physical Exam GENERAL: Awake, alert, well-appearing, NAD, wearing glasses HENT: Normocephalic, atraumatic. EYES: Normal conjunctiva. Sclera non-icteric. PERRL. No anisocoria. NECK: Supple. No nuchal rigidity. FROM. Right sided endarterectomy scar. RESPIRATORY: CTAB, no rhonchi, wheezing, crackles CARDIAC: Tachycardic and regular. Systolic ejection murmur. ABDOMEN: Soft, NTND, BS+ MSK: No chest wall TTP. 1+ b/l LE edema, no calf pain, negative Frank's sign, no asymmetry. NEURO: GCS 15, CN 2-12 intact, moves all 4s on command SKIN: No rash or jaundice noted. Bedside ultrasound: Good squeeze, no pericardial effusion, no septal bowing into the LV, IVC collapsable and virtually flat with inspiration. Medical Decision & Procedures ER Provider Diagnostic Interpretation: Radiology results as stated below per my review and radiologist interpretation: CHEST ONE VIEW PORTABLE HISTORY: EVALUATE RESPIRATORY DISTRESS.DYSPNEA COMPARISON: Chest 06/16/2017. FINDINGS: No pneumothorax. Elevated left hemidiaphragm and a small left pleural effusion persists. Left basilar densities are maintained and unchanged. Mild diffuse interstitial thickening is again noted. No pneumothorax. The heart remains enlarged. The left upper lobe pulmonary nodule seen on the prior study is not well visualized. IMPRESSION: 1. Elevated left hemidiaphragm with a small left pleural effusion and left basilar densities. This remains unchanged. 2. Mild diffuse interstitial thickening and cardiomegaly are also unchanged. This may represent mild congestive change. Electronically signed by: Steven Mirza M.D. 07/15/2017 3:11 PM Dictated Date/Time: 07/15/2017 3:08 PM (CHEST FOR PE) ANGIO WITH CT DOSE: 187.87 mGy.cm HISTORY: Chest pain dyspnea TECHNIQUE: Multiaxial CT images of the chest were performed following the intravenous administration of contrast to evaluate the pulmonary arteries. Maximal intensity projection images were also obtained. A dose lowering technique was utilized adhering to the principles of ALARA. COMPARISON STUDY: 06/16/2017 FINDINGS: Mild increase in volume of a left pleural effusion. Unchanging left lower lobe compressive atelectasis. Developing atelectasis peripheral aspect of the lingula. Several indeterminate mediastinal and/or hilar nodes unchanged in the prior exam. Emphysematous and chronic interstitial changes similar compared to the prior study. Pulmonary vasculature enhances appropriately. There are no significant filling defects. Metastatic bone disease previously described again is poorly seen by CT criteria but appears stable. Enlargement of the left adrenal is similar. Retrocrural adenopathy is stable. IMPRESSION: 1. Study is negative for pulmonary embolus. 2. Left pleural effusion is somewhat increased implying from the prior study. 3. Atelectatic change left lower lobe as well as peripheral aspects of the lingula slightly progressive. 4. Unchanging nodular density left upper lung. 5. Mild stable chronic interstitial and emphysematous change. The above report was generated using voice recognition software. It may contain grammatical, syntax or spelling errors. Electronically signed by: Riley Stokes M.D. 07/15/2017 4:39 PM Dictated Date/Time: 07/15/2017 4:34 PM Laboratory Results 07/15/17 14:50 Red Blood Count 4.64, Mean Corpuscular Volume 76.1, Mean Corpuscular Hemoglobin 23.7, Mean Corpuscular Hemoglobin Concent 31.2, Mean Platelet Volume 10.1, Neutrophils (%) (Auto) 72.4, Lymphocytes (%) (Auto) 12.0, Monocytes (%) (Auto) 14.7, Eosinophils (%) (Auto) 0.1, Basophils (%) (Auto) 0.2, Neutrophils # (Auto ) 7.27, Lymphocytes # (Auto) 1.20, Monocytes # (Auto) 1.47, Eosinophils # (Auto ) 0.01, Basophils # (Auto) 0.02 07/15/17 14:50 Test 07/15/17 14:50 07/15/17 16:15 White Blood Count 10.03 K/uL (4.8-10.8) Red Blood Count 4.64 M/uL (4.2-5.4) Hemoglobin 11.0 g/dL (12.0-16.0) Hematocrit 35.3 % (37-47) Mean Corpuscular Volume 76.1 fL (80-100) Mean Corpuscular Hemoglobin 23.7 pg (25-34) Mean Corpuscular Hemoglobin Concent 31.2 g/dl (32-36) Platelet Count 302 K/uL (130-400) Mean Platelet Volume 10.1 fL (7.4-10.4) Neutrophils (%) (Auto) 72.4 % Lymphocytes (%) (Auto) 12.0 % Monocytes (%) (Auto) 14.7 % Eosinophils (%) (Auto) 0.1 % Basophils (%) (Auto) 0.2 % Neutrophils # (Auto) 7.27 K/uL (1.4-6.5) Lymphocytes # (Auto) 1.20 K/uL (1.2-3.4) Monocytes # (Auto) 1.47 K/uL (0.11-0.59) Eosinophils # (Auto) 0.01 K/uL (0-0.5) Basophils # (Auto) 0.02 K/uL (0-0.2) RDW Standard Deviation 44.7 fL (36.4-46.3) RDW Coefficient of Variation 16.4 % (11.5-14.5) Immature Granulocyte % (Auto) 0.6 % Immature Granulocyte # (Auto) 0.06 K/uL (0.00-0.02) Prothrombin Time 12.4 SECONDS (9.0-12.0) Prothromb Time International Ratio 1.2 (0.9-1.1) Activated Partial Thromboplast Time 27.2 SECONDS (21.0-31.0) Partial Thromboplastin Ratio 1.0 Anion Gap 7.0 mmol/L (3-11) Est Creatinine Clear Calc Drug Dose 53.7 ml/min Estimated GFR () 83.1 Estimated GFR (Non- 71.7 BUN/Creatinine Ratio 28.7 (10-20) Calcium Level 8.9 mg/dl (8.5-10.1) Total Bilirubin 0.5 mg/dl (0.2-1) Aspartate Amino Transf (AST/SGOT) 17 U/L (15-37) Alanine Aminotransferase (ALT/SGPT) 12 U/L (12-78) Alkaline Phosphatase 94 U/L (45-117) Total Creatine Kinase 35 U/L (26-192) Troponin I 1.380 ng/ml (0-0.045) Pro-B-Type Natriuretic Peptide 52149 pg/ml (0-1800) Total Protein 7.3 gm/dl (6.4-8.2) Albumin 2.5 gm/dl (3.4-5.0) Globulin 4.8 gm/dl (2.5-4.0) Albumin/Globulin Ratio 0.5 (0.9-2) Urine Color YELLOW Urine Appearance CLEAR (CLEAR) Urine pH 7.0 (4.5-7.5) Urine Specific [place] 1.010 (1.000-1.030) Urine Protein NEG (NEG) Urine Glucose (UA) NEG (NEG) Urine Ketones NEG (NEG) Urine Occult Blood NEG (NEG) Urine Nitrite NEG (NEG) Urine Bilirubin NEG (NEG) Urine Urobilinogen NEG (NEG) Urine Leukocyte Esterase NEG (NEG) Laboratory results reviewed by me Medications Administered Medications (Trade) Dose Ordered Sig/[place] Route Start Time Stop Time Status Last Admin Dose Admin Sodium Chloride 1,000 ml @ 999 mls/hr Q1H1M STAT IV 07/15/17 14:51 07/15/17 15:51 DC 07/15/17 15:07 999 MLS/HR Heparin Sodium/ Dextrose 1 ea NOW STAT N/A 07/15/17 16:52 07/15/17 16:53 DC 07/15/17 17:25 1 EA Heparin Sodium/ Dextrose (Heparin 25,000 Unit/500ml D5W) 25,000 unit STK-MED ONCE .ROUTE 07/15/17 17:08 07/15/17 17:09 DC 07/15/17 17:16 25,000 UNIT ECG Per My Interpretation Indication: SOB/dyspnea Rate (beats per minute): 106 Rhythm: sinus tachycardia Findings: T-wave inversion (V2), ST elevation (V3), other (normal intervals, normal axis) Comparison ECG Date: 16-Jun-2017 Change: Both changes are new. ED Course 1446: The patient was evaluated in room A3. A complete history and physical exam was performed. 1553: I discussed the patient's case with Dr. Portillo, [facility] cardiology. He has not seen the EKGs, but thinks that EKG changes could be from the radiation. He does not recommended any changes at this time. 1601: Upon reexamination, the patient was now wearing NC. She has no chest pain or SOB. I discussed the test results and treatment plan with her. The patient will be evaluated for further management. 1609: I discussed the patient's case with Dr. Dias, [facility] hospitalist. The patient will be evaluated for further treatment and disposition. 1631: I spoke with Dr. Portillo again. He recommends waiting for the CT scan results and if no pericardial effusion, recommends heparin. Medical Decision Nursing notes reviewed. Ancillary studies and prior records reviewed. The patient is a 77 year old white female with a past medical history of stage 4 lung adenocarcinoma, COPD, HLD, HTN, hypothyroidism, carotid endarterectomy who presents to the ED with a cc of worsening SOB beginning couple days ago. Differential diagnosis: Etiologies such as infections, reactive airway disease, pneumonia, pneumothorax , COPD, CHF, cardiac ischemia, pulmonary embolism, musculoskeletal, gastrointestinal, as well as others were entertained. Patient was seen and evaluated the bedside. Patient is complained of some shortness of breath weakness and decreased appetite. This been ongoing for several days. Of note the patient still does smoke. The patient does have a history stage IV lung adenocarcinoma and has been receiving radiation and chemotherapy treatments. Patient's last chemotherapy was morillo Trudell last Friday. The patient did not receive any radiation today. Patient also does have a noted history of some pericardial effusion. Patient did blood work completed, EKG, troponin, BNP, chest x-ray. The patient was also given IV fluids. A bedside ultrasound was performed which did not show any evidence of any large pericardial effusion nor any tamponade physiology. The patient appeared to have good squeeze and the patient had a very flat IVC which was virtually flat with inspiration. Did discuss possibility things like PEs given the patient's tachycardia, low blood pressure and history of cancer however less likely given the bedside ultrasound. No CT of the chest was ordered at this time. Patient had positive trop. CXR clear. Patient did have some prerenal azotemia which is likely consistent with a bedside ultrasound. The patient's positive troponin is new. BNP is elevated. Patient's EKG did show changes including a TW I in the anterior lead as well as a possible elevation in 1 single-lead. Patient denies any active chest pain or shortness of breath. I discussed with the on-call [facility] specialists. He was pending looking at the EKGs but did not recommend any further management at this time. I did receive a call back after the [facility] specialists had reviewed the EKGs. It was recommended for heparin provided that the CT PE protocol did not show any pericardial effusion. This was ordered given the patient's positive troponin as well as her needing nasal cannula. Of note the patient does have a history of stage IV lung CA and does still smoke which may also be contributory. The patient was placed on heparin. Patient was admitted to the medicine service. Medication Reconcilliation Current Medication List: was personally reviewed by me Blood Pressure Screening Referred to hospitalist. Consults Time Called: 1551 Consulting Physician: Dr. Portillo [facility] cardiology Returned Call: [phone] I discussed the patient's case with him. He has not seen the EKGs, but thinks that EKG changes could be from the radiation. He does not recommended any changes at this time. Additional Consults: Time Called: 1601 Consulted Physician: Dr. Dias [facility] hospitalist Returned Call: [phone] Additional Comments: I discussed the patient's case with him. The patient will be evaluated for further treatment and disposition. Impression Primary Impression: Dehydration Additional Impressions: Elevated troponin SOB (shortness of breath) Encounter for smoking cessation counseling ACS (acute coronary syndrome) Hypoxia Critical Care I have personally spent greater than 42 minutes of critical care time in the direct management of this patient. This includes bedside care, interpretation of diagnostic studies, and testing, discussion with consultants, patient, and family members, and other required patient management activities. This 42 minutes is in excess of all separately billable procedures. Scribe Attestation The scribe's documentation has been prepared under my direction and personally reviewed by me in its entirety. I confirm that the note above accurately reflects all work, treatment, procedures, and medical decision making performed by me. Departure Information Dispostion Being Evaluated By Hospitalist Referrals Daron Harris M.D. (PCP) Patient Instructions My [facility] Problem Qualifiers
--- NOTE | 2017-07-15 15:12 | DIAGNOSTIC IMAGING REPORT ---
CHEST ONE VIEW PORTABLE HISTORY: EVALUATE RESPIRATORY DISTRESS.DYSPNEA COMPARISON: Chest 06/16/2017. FINDINGS: No pneumothorax. Elevated left hemidiaphragm and a small left pleural effusion persists. Left basilar densities are maintained and unchanged. Mild diffuse interstitial thickening is again noted. No pneumothorax. The heart remains enlarged. The left upper lobe pulmonary nodule seen on the prior study is not well visualized. IMPRESSION: 1. Elevated left hemidiaphragm with a small left pleural effusion and left basilar densities. This remains unchanged. 2. Mild diffuse interstitial thickening and cardiomegaly are also unchanged. This may represent mild congestive change. Electronically signed by: Steven Mirza M.D. 07/15/2017 3:11 PM Dictated Date/Time: 07/15/2017 3:08 PM
[2017-07-15 15:14] LABS: BASO % 0.2 %; BASO ABS # 0.02 K/uL (0-0.2); EOS % 0.1 %; EOS ABS # 0.01 K/uL (0-0.5); HEMATOCRIT 35.3 % (37-47); IG# 0.06 K/uL (0.00-0.02); MEAN CELL VOLUME 76.1 fL (80-100); MEAN CORPUSCULAR HEMOGLOBIN 23.7 pg (25-34); MEAN CORPUSCULAR HGB CONC 31.2 g/dl (32-36); MEAN PLATELET VOLUME 10.1 fL (7.4-10.4); MONO % 14.7 %; MONO ABS # 1.47 K/uL (0.11-0.59); NEUT % 72.4 %; NEUT ABS # 7.27 K/uL (1.4-6.5); PLATELET COUNT 302 K/uL (130-400); RED CELL DISTRIBUTION WIDTH CV 16.4 % (11.5-14.5); RED CELL DISTRIBUTION WIDTH SD 44.7 fL (36.4-46.3); WHITE BLOOD COUNT 10.03 K/uL (4.8-10.8)
[2017-07-15 15:22] LABS: INR 1.2 (0.9-1.1); PTT PATIENT 27.2 SECONDS (21.0-31.0)
[2017-07-15 15:32] LABS: ALBUMIN 2.5 gm/dl (3.4-5.0); CALCIUM 8.9 mg/dl (8.5-10.1); CREATININE 0.79 mg/dl (0.60-1.20); POTASSIUM 4.3 mmol/L (3.5-5.1)
[2017-07-15] MEDS ORDERED: OXYC-609 PO (15:37)
[2017-07-15] MEDS ORDERED: NUTR-7 PO (15:37)
[2017-07-15] MEDS ORDERED: POLY1POW2 PO (15:37)
[2017-07-15] MEDS ORDERED: ONDA4TAB10 SL (15:38)
[2017-07-15] MEDS ORDERED: FOSI40TA2 PO (15:47)
[2017-07-15 15:48] LABS: TOTAL PROTEIN 7.3 gm/dl (6.4-8.2)
[2017-07-15] MEDS ORDERED: OPTIRAY 320 IV PRN (16:30)
--- NOTE | 2017-07-15 16:40 | DIAGNOSTIC IMAGING REPORT ---
(CHEST FOR PE) ANGIO WITH CT DOSE: 187.87 mGy.cm HISTORY: Chest pain dyspnea TECHNIQUE: Multiaxial CT images of the chest were performed following the intravenous administration of contrast to evaluate the pulmonary arteries. Maximal intensity projection images were also obtained. A dose lowering technique was utilized adhering to the principles of ALARA. COMPARISON STUDY: 06/16/2017 FINDINGS: Mild increase in volume of a left pleural effusion. Unchanging left lower lobe compressive atelectasis. Developing atelectasis peripheral aspect of the lingula. Several indeterminate mediastinal and/or hilar nodes unchanged in the prior exam. Emphysematous and chronic interstitial changes similar compared to the prior study. Pulmonary vasculature enhances appropriately. There are no significant filling defects. Metastatic bone disease previously described again is poorly seen by CT criteria but appears stable. Enlargement of the left adrenal is similar. Retrocrural adenopathy is stable. IMPRESSION: 1. Study is negative for pulmonary embolus. 2. Left pleural effusion is somewhat increased implying from the prior study. 3. Atelectatic change left lower lobe as well as peripheral aspects of the lingula slightly progressive. 4. Unchanging nodular density left upper lung. 5. Mild stable chronic interstitial and emphysematous change. The above report was generated using voice recognition software. It may contain grammatical, syntax or spelling errors. Electronically signed by: Riley Stokes M.D. 07/15/2017 4:39 PM Dictated Date/Time: 07/15/2017 4:34 PM
[2017-07-15] MEDS ORDERED: HEPARIN IV LOW DOSE NO BOLUS STA (16:52)
[2017-07-15] MEDS ORDERED: HEPARIN 25000 UNIT/500 ML D5W ONE (17:08)
--- NOTE | 2017-07-15 17:39 | History and Physical ---
History & Physical Date & Time of Service: July 15, 2017 at 17:21 Chief Complaint: Dehydration - Sent From Radiation Onc Primary Care Physician: Daron Harris M.D. History of Present Illness Source: patient Attending: Dr. Dias There is a 77-year-old female known to the service from previous admission for pericardial effusion which came back with metastatic adenocarcinoma. The patient followed with Dr. Zhou for pericardial window and has recently seen Dr. Karl Carbajal and Dr. Joseph Garcia for radiation oncology. The patient completed her radiation treatment with 3000 cYg. She is currently receiving chemotherapy with Keytruda with her last dose being 2017 and her next dose being scheduled for 07/25/2017. The patient presents today with fatigue and dyspnea with exertion. She denies any chest pain or tightness. She has no sputum production. She has no fever. She has no other recent illness. Routine workup revealed a bump in the troponin to 1.380. There were some ST changes suggestive of ischemia. Dr. Portillo was contacted and patient was placed on a heparin drip. Patient did have some nausea but she controls this with Zofran which is available to her secondary to her chemotherapy treatment. She denies any vomiting. She had no diarrhea or other constitutional complaints. Patient is an everyday smoker and continues to smoke 1 cigarette in the morning when she gets up in 1 cigarette before she goes to bed. She denies any ethanol use or other illicit drug abuse. Past Medical/Surgical History Medical Problems: (1) Acute hypoxemic respiratory failure (2) Adenocarcinoma of lung, stage 4 (3) Anemia of chronic disease (4) Back pain (5) Chest pain (6) COPD (chronic obstructive pulmonary disease) (7) HLD (hyperlipidemia) (8) HTN (hypertension) (9) Hyponatremia (10) Hypothyroidism (11) Intracranial carotid stenosis, bilateral (12) Metastatic adenocarcinoma (13) Moderate protein malnutrition (14) PAD (peripheral artery disease) (15) Pericardial effusion Surgical Problems: (1) History of CEA (carotid endarterectomy) (2) radiation [facility] 3000 CyG (3) pericardial window Family History Diabetes mellitus Hypertension Social History Smoking Status: Current Every Day Smoker Smokeless Tobacco Use: No Alcohol Use: none Drug Use: none Marital Status: Housing status: lives alone (Although patient lives alone she has family the stops and daily and lives nearby) Occupational Status: unemployed Immunizations History of Influenza Vaccine: N/A History of Tetanus Vaccine?: Unknown History of Pneumococcal: Yes Pneumococcal Date: Nov 07, 2005 History of Hepatitis B Vaccine: No Allergies Coded Allergies: No Known Allergies (Verified , NONE, 06/16/17) Home Medications Scheduled Aspirin (Aspirin Ec), 325 MG PO DAILY Fentanyl (Duragesic), 50 MCG TOP [id number] Fosinopril Sodium (Monopril), 20 MG PO DAILY Furosemide (Lasix), 20 MG PO DAILY Levothyroxine Sodium (Levothyroxine Sodium), 50 MCG PO DAILY Multiple Minerals W/ Vitamins (Citracal Plus), 1 TAB PO DAILY Multiple Vitamins W/ Minerals (Centrum), 1 TAB PO DAILY Nutritional Supplements (Boost), 1 CAN PO BIDM Simvastatin (Zocor), 80 MG PO QPM Scheduled PRN Ondasetron Odt (Zofran Odt), 4 MG SL Q6H PRN for Nausea Oxycodone HCl (Oxycodone HCl), 5-10 MG PO Q6H PRN for Pain Polyethylene Glycol 3350 (Bulk (Polyethylene Glycol 3350), 17 GM PO DAILY PRN for Constipation Review of Systems A total of 12 systems was reviewed and is negative other than as listed above in the HPI Physical Exam Vital Signs Date Time Temp Pulse Resp B/P (MAP) Pulse Ox O2 Delivery O2 Flow Rate FiO2 07/15/17 17:18 103 19 85/57 91 Nasal Cannula 3.0 07/15/17 16:45 109 17 108/69 93 Nasal Cannula 3.0 07/15/17 16:10 101 22 89/59 Nasal Cannula 3.0 07/15/17 15:48 102 16 93/60 94 Nasal Cannula 3.0 07/15/17 15:29 100 07/15/17 15:18 92 Nasal Cannula 3.0 07/15/17 15:17 100 17 76/51 86 Room Air 07/15/17 15:07 Room Air 07/15/17 15:07 103 16 81/53 07/15/17 14:38 36.7 107 16 62/45 92 Room Air GENERAL : No acute distress. Pleasant. EYES: No icterus, gaze conjugate. Pupils equal round and reactive to light NOSE: No evidence of epistaxis. Nasal cannula in place MOUTH: No lesions or candidiasis. Upper and lower dentures in place. Gingiva not inspected but patient reports a small abrasion from her lower dentures. NECK: Supple. No stridor LUNGS: Breath sounds significantly decreased on the left. HEART: Regular, tachycardic in the low 100s ABDOMEN: Soft, NT, ND, BS Present EXTREMITIES: Bilateral LE edema, pedal pulses intact. NEURO: A&OX3. Diagnostics Laboratory Results Results Past 24 Hours Test 07/15/17 14:50 07/15/17 16:15 Range/Units White Blood Count 10.03 4.8-10.8 K/uL Red Blood Count 4.64 4.2-5.4 M/uL Hemoglobin 11.0 12.0-16.0 g/dL Hematocrit 35.3 37-47 % Mean Corpuscular Volume 76.1 80-100 fL Mean Corpuscular Hemoglobin 23.7 25-34 pg Mean Corpuscular Hemoglobin Concent 31.2 32-36 g/dl Platelet Count 302 130-400 K/uL Mean Platelet Volume 10.1 7.4-10.4 fL Neutrophils (%) (Auto) 72.4 % Lymphocytes (%) (Auto) 12.0 % Monocytes (%) (Auto) 14.7 % Eosinophils (%) (Auto) 0.1 % Basophils (%) (Auto) 0.2 % Neutrophils # (Auto) 7.27 1.4-6.5 K/uL Lymphocytes # (Auto) 1.20 1.2-3.4 K/uL Monocytes # (Auto) 1.47 0.11-0.59 K/uL Eosinophils # (Auto) 0.01 0-0.5 K/uL Basophils # (Auto) 0.02 0-0.2 K/uL RDW Standard Deviation 44.7 36.4-46.3 fL RDW Coefficient of Variation 16.4 11.5-14.5 % Immature Granulocyte % (Auto) 0.6 % Immature Granulocyte # (Auto) 0.06 0.00-0.02 K/uL Prothrombin Time 12.4 9.0-12.0 SECONDS Prothromb Time International Ratio 1.2 0.9-1.1 Activated Partial Thromboplast Time 27.2 21.0-31.0 SECONDS Partial Thromboplastin Ratio 1.0 Sodium Level 130 136-145 mmol/L Potassium Level 4.3 3.5-5.1 mmol/L Chloride Level 95 98-107 mmol/L Carbon Dioxide Level 28 21-32 mmol/L Anion Gap 7.0 3-11 mmol/L Blood Urea Nitrogen 23 7-18 mg/dl Creatinine 0.79 0.60-1.20 mg/dl Est Creatinine Clear Calc Drug Dose 53.7 ml/min Estimated GFR () 83.1 Estimated GFR (Non- 71.7 BUN/Creatinine Ratio 28.7 10-20 Random Glucose 145 70-99 mg/dl Calcium Level 8.9 8.5-10.1 mg/dl Total Bilirubin 0.5 0.2-1 mg/dl Aspartate Amino Transf (AST/SGOT) 17 15-37 U/L Alanine Aminotransferase (ALT/SGPT) 12 12-78 U/L Alkaline Phosphatase 94 45-117 U/L Total Creatine Kinase 35 26-192 U/L Troponin I 1.380 0-0.045 ng/ml Pro-B-Type Natriuretic Peptide 19645 0-1800 pg/ml Total Protein 7.3 6.4-8.2 gm/dl Albumin 2.5 3.4-5.0 gm/dl Globulin 4.8 2.5-4.0 gm/dl Albumin/Globulin Ratio 0.5 0.9-2 Urine Color YELLOW Urine Appearance CLEAR CLEAR Urine pH 7.0 4.5-7.5 Urine Specific [place] 1.010 1.000-1.030 Urine Protein NEG NEG Urine Glucose (UA) NEG NEG Urine Ketones NEG NEG Urine Occult Blood NEG NEG Urine Nitrite NEG NEG Urine Bilirubin NEG NEG Urine Urobilinogen NEG NEG Urine Leukocyte Esterase NEG NEG Diagnostic Radiology (CHEST FOR PE) ANGIO WITH CT DOSE: 187.87 mGy.cm HISTORY: Chest pain dyspnea TECHNIQUE: Multiaxial CT images of the chest were performed following the intravenous administration of contrast to evaluate the pulmonary arteries. Maximal intensity projection images were also obtained. A dose lowering technique was utilized adhering to the principles of ALARA. COMPARISON STUDY: 06/16/2017 FINDINGS: Mild increase in volume of a left pleural effusion. Unchanging left lower lobe compressive atelectasis. Developing atelectasis peripheral aspect of the lingula. Several indeterminate mediastinal and/or hilar nodes unchanged in the prior exam. Emphysematous and chronic interstitial changes similar compared to the prior study. Pulmonary vasculature enhances appropriately. There are no significant filling defects. Metastatic bone disease previously described again is poorly seen by CT criteria but appears stable. Enlargement of the left adrenal is similar. Retrocrural adenopathy is stable. IMPRESSION: 1. Study is negative for pulmonary embolus. 2. Left pleural effusion is somewhat increased implying from the prior study. 3. Atelectatic change left lower lobe as well as peripheral aspects of the lingula slightly progressive. 4. Unchanging nodular density left upper lung. 5. Mild stable chronic interstitial and emphysematous change. Electronically signed by: Riley Stokes M.D. 07/15/2017 4:39 PM CHEST ONE VIEW PORTABLE HISTORY: EVALUATE RESPIRATORY DISTRESS.DYSPNEA COMPARISON: Chest 06/16/2017. FINDINGS: No pneumothorax. Elevated left hemidiaphragm and a small left pleural effusion persists. Left basilar densities are maintained and unchanged. Mild diffuse interstitial thickening is again noted. No pneumothorax. The heart remains enlarged. The left upper lobe pulmonary nodule seen on the prior study is not well visualized. IMPRESSION: 1. Elevated left hemidiaphragm with a small left pleural effusion and left basilar densities. This remains unchanged. 2. Mild diffuse interstitial thickening and cardiomegaly are also unchanged. This may represent mild congestive change. Electronically signed by: Steven Mirza M.D. 07/15/2017 3:11 PM Impression Assessment and Plan ELEVATED TROPONIN * Patient with elevated troponin of 1.[address] changes on EKG * Heparin drip initiated * Dr. Portillo aware -consider possibility of EKG changes being from radiation but treat for ACS until cleared by cardiology * Admit to telemetry service * Continue aspirin, furosemide, simvastatin at home doses pending cardiology review * Repeat EKG in the more * Complete echocardiogram to look for wall motion abnormalities ELEVATED PRO-BNP * Continue home dose of furosemide watching for hemodynamic stability * Strict I's and O's * Rule out acute [place] * Cardiology following HYPOXIA * Patient with metastatic adenocarcinoma diagnosed about 6 weeks ago * Currently undergoing chemotherapy with Keytruda * Completed radiation therapy * Small 8 mm spiculated nodule in the left upper lobe. No other mass burden * Continue supplemental O2 to maintain oxygenation above 90% * Every day tobacco user with 2-4 cigarettes daily * CTA of the chest negative for pulmonary embolus * Patient does have a left elevated hemidiaphragm as well as a left pleural effusion * Patient known to Dr. Zhou -follow clinically. Will defer to primary team regarding further consultation of thoracic surgery HYPOTHYROIDISM * Continue levothyroxine * TSH 07/03/2017 was 1.6 * Free T4 08/10/2013 was 1.08 * Ultrasensitive TSH of 02/16/2013 was 0.835 HYPERGLYCEMIA * No history of diabetes mellitus * Previous hemoglobin A1c 02/11/2017 was 6.0 * Check repeat hemoglobin A1c with a.m. labs * BSG before meals at bedtime GI PROPHYLAXIS * Will start famotidine secondary to heparin drip and increased risk of bleeding * Not on a PPI or H2 shira at home DVT PROPHYLAXIS * Heparin drip * SCDs/teds Please refer to Dr. Dias's addendum for further recommendations. Resident Physician Supervision Note: I was present with rachelle PAGE during the history and exam. I discussed the case with the PA and agree with the findings and plan as documented in the note. Any exceptions or clarifications are listed here: 77 y/o F known to me from previous admission with history of hypothyroidism and a lung mass recently diagnosed as NSC lung CA She is currently being treated with Keytruda and has received radiation as well. She has a recurrent L pleural effusion which has previously required thoracentesis. She presents with SOB and was found to have an elevated trop - ST segment changes were present although not clearly representing an STEMI. The pt was sent for a CTA as she is high risk for PE. This was negative for acute findings. OE AAO x 3 S1,2 R CTA on R - no air entry at L base NT, ND No CCE No deficits P: Following discussion with cardiology, she is fully anticoagulated with Heparin - pending full consult an echo is ordered to assess for WMAs We will cont Synthroid Following treatment for potential [place], we may have to consult thoracic surgery as she is hypoxic with reaccumulation of her effusion. Documented By: Brock Dias Advanced Directives Existing Advance Directive: No Resuscitation Status Level I - Full Code VTE Prophylaxis Will order VTE Prophylaxis: Yes Social Service Consult Cancer Patient Under [place] Additional Copies To Daron Harris M.D.
[2017-07-15] MEDS ORDERED: NITROGLYCERIN 0.4 MG SL PER TAB CHARGE SL PRN (17:45)
[2017-07-15] MEDS ORDERED: MAGNESIUM HYDROXIDE SUSP 30 ML UDC PO PRN (17:45)
[2017-07-15] MEDS ORDERED: ALUMINUM/MAGNESIUM/SIMETH (MAALOX MAX) 30 ML UDC PO PRN (17:45)
[2017-07-15] MEDS ORDERED: POLYETHYLENE (MIRALAX) 17 GM PACK PO PRN ×2 (17:45)
[2017-07-15] MEDS ORDERED: ASPI325T39 PO (18:44)
[2017-07-15] MEDS ORDERED: MULTTAB5 PO (18:44)
[2017-07-15] MEDS ORDERED: LEVO50TA6 PO (18:44)
[2017-07-15] MEDS ORDERED: MULT-663 PO (18:44)
[2017-07-15] MEDS ORDERED: SIMV80TA2 PO (18:44)
[2017-07-15 19:00] VITALS: BP 95/65; PULSE 106; TEMP 36.9; O2SAT 94; Ht 170.2 cm; Wt 57.6 kg
[2017-07-15] MEDS: BOOST VANILLA PO SCH (19:40)
[2017-07-15] MEDS: SODIUM CHLORIDE 0.9% 1000ML 1,000 ML IV SCH (19:42)
[2017-07-15] MEDS ORDERED: HEPARIN IV LOW DOSE NO BOLUS SCH (20:30)
[2017-07-15] MEDS: SIMVASTATIN 80 MG TAB PO SCH (21:06)
[2017-07-15] MEDS: FAMOTIDINE 20 MG TAB PO SCH (22:49)
[2017-07-15 23:26] LABS: PTT PATIENT 33.7 SECONDS (21.0-31.0)
[2017-07-15] MEDS: HEPARIN 25,000 UNIT/500ML D5W 500 ML IV SCH (23:56)
[2017-07-15] MEDS: CHECK FENTANYL PATCH PLACEMENT SCH (23:58)
[2017-07-16] VITALS (9 sets, daily range): BP systolic 95–106; BP diastolic 63–73; PULSE 98–111; TEMP 36.5–36.9; O2SAT 84–97
[2017-07-16] MEDS ORDERED: HEPARIN IV BOLUS 4,000 UNIT in SYRINGE 0 ML IV ONE
[2017-07-16] MEDS: ONDANSETRON INJ 2 MG/ML 2 ML VIAL IV PRN (03:14)
[2017-07-16] MEDS: OXYCODONE HCL IR 5 MG TAB (IMMEDIATE RELEASE) PO PRN ×2 (03:18→11:53)
[2017-07-16] MEDS: SODIUM CHLORIDE 0.9% 1000ML 1,000 ML IV SCH ×3 (03:32→22:34)
[2017-07-16 05:48] LABS: BASO % 0.3 %; BASO ABS # 0.03 K/uL (0-0.2); EOS % 0.7 %; EOS ABS # 0.06 K/uL (0-0.5); HEMATOCRIT 30.2 % (37-47); HEMOGLOBIN 9.3 g/dL (12.0-16.0); IG# 0.04 K/uL (0.00-0.02); LYMPH % 13.2 %; LYMPH ABS # 1.14 K/uL (1.2-3.4); MEAN CELL VOLUME 75.5 fL (80-100); MEAN CORPUSCULAR HEMOGLOBIN 23.3 pg (25-34); MEAN CORPUSCULAR HGB CONC 30.8 g/dl (32-36); MEAN PLATELET VOLUME 10.2 fL (7.4-10.4); MONO % 14.6 %; MONO ABS # 1.26 K/uL (0.11-0.59); NEUT % 70.7 %; NEUT ABS # 6.11 K/uL (1.4-6.5); PLATELET COUNT 264 K/uL (130-400); RED CELL DISTRIBUTION WIDTH CV 16.2 % (11.5-14.5); WHITE BLOOD COUNT 8.64 K/uL (4.8-10.8)
[2017-07-16] MEDS: LEVOTHYROXINE 50 MCG TAB PO SCH (06:20)
[2017-07-16 06:22] LABS: CREATININE 0.46 mg/dl (0.60-1.20)
[2017-07-16 06:23] LABS: CALCIUM 7.9 mg/dl (8.5-10.1); PHOSPHORUS 2.8 mg/dl (2.5-4.9); POTASSIUM 3.7 mmol/L (3.5-5.1)
[2017-07-16 06:24] LABS: HEMOGLOBIN A1C 6.3 % (4.5-5.6)
[2017-07-16] MEDS ORDERED: HEPARIN IV BOLUS 2,000 UNIT in SYRINGE 0 ML IV ONE ×2 (06:45→22:00)
[2017-07-16] MEDS: HEPARIN 25,000 UNIT/500ML D5W 500 ML IV SCH ×3 (07:11→22:14)
[2017-07-16] MEDS: CHECK FENTANYL PATCH PLACEMENT SCH ×2 (08:00→16:27)
[2017-07-16] MEDS: FUROSEMIDE 20 MG TAB PO SCH (08:34)
[2017-07-16] MEDS ORDERED: VITAMINS PO SCH (09:00)
[2017-07-16] MEDS ORDERED: LISINOPRIL 20 MG TAB PO SCH (09:00)
[2017-07-16] MEDS ORDERED: MULTIPLE MINERALS PO SCH (09:00)
[2017-07-16] MEDS: FAMOTIDINE 20 MG TAB PO SCH ×2 (09:10→22:15)
[2017-07-16] MEDS: ASPIRIN 325 MG ECTAB PO SCH (09:10)
[2017-07-16] MEDS: CEROVITE ADV FORMULA TAB PO SCH (09:10)
[2017-07-16] MEDS: BOOST VANILLA PO SCH ×2 (09:10→17:51)
[2017-07-16] MEDS: MoRPHine SULFATE 2 MG/ML CARP IV PRN ×2 (09:42→22:16)
[2017-07-16] MEDS ORDERED: METOPROLOL TARTRATE 25 MG TAB PO STA (11:27)
--- NOTE | 2017-07-16 11:27 | Cardiology Consultation ---
Cardiology Consultation Date of Consultation: July 16, 2017. Requesting Physician: Andrew Yarbrough Reason for Consultation: Elevated troponin Pt evaluation today including: conversation w/ patient, conversation w/ family , physical exam, lab review, review of studies, review of inpatient medication list History of Present Illness This is a very pleasant 77-year-old woman who normally follows with Dr. Lance for her cardiology care. She has cerebrovascular disease and was being evaluated for carotid surgery when a large pericardial effusion was identified, she also had a lung mass. Pericardial window was performed in May 2017 and metastatic adenocarcinoma, probably from long, was identified. She has not had recurrence of the fusion. She has received radiation therapy and is undergoing chemotherapy. Today she was having extreme fatigue and dyspnea, she has been having a lot of difficulty with nausea and decreased appetite and has not been eating much. She was noted to be hypotensive and tachycardic (blood pressure 85 /57, heart rate 103). This was felt likely due to dehydration. She was however noted to have troponin elevations and electrocardiographic abnormalities. By her history she has had several recent echocardiograms. At the time of my evaluation she is complaining of diffuse pain, especially in her chest and ribs but she is not very specific about what it occurred or what the character is. She does have metastatic cancer to her bones. Currently she is not experiencing shortness of breath. Her daughter is at her bedside. Past Medical/Surgical History (1) Back pain (2) Adenocarcinoma of lung, stage 4 (3) Intracranial carotid stenosis, bilateral (4) PAD (peripheral artery disease) (5) COPD (chronic obstructive pulmonary disease) (6) HLD (hyperlipidemia) (7) HTN (hypertension) (8) Pericardial effusion Family History Diabetes mellitus Hypertension Social History Smoking Status: Current Every Day Smoker History of Alcohol Use: No Review of Systems Constitutional: + weight loss, + weakness, No fever Respiratory: No cough, No wheezing, No shortness of breath, No dyspnea on exertion Cardiac: + see HPI, + chest pain Abdomen: + see HPI, + nausea, + problem reported (Anorexia), No pain, No vomiting, No diarrhea, No GI bleeding Female : No problem reported Neurologic: No paralysis, No weakness, No numbness/tingling, No balance problems Heme: No abnormal bleeding/bruising, No clotting problems Endo: No fatigue Skin: No problem reported All Other Systems: Reviewed and Negative Allergies Coded Allergies: No Known Allergies (Verified , NONE, 06/16/17) Medications Current Inpatient Medications Medications (Trade) Dose Ordered Sig/[place] Route Start Time Stop Time Status Last Admin Dose Admin Ioversol (Optiray 320) 125 ml UD PRN IV 07/15/17 16:30 07/19/17 16:29 Sodium Chloride 1,000 ml @ 100 mls/hr Q10H IV 07/15/17 17:39 08/14/17 17:38 07/16/17 03:32 100 MLS/HR Acetaminophen (Tylenol Tab) 650 mg Q4H PRN PO 07/15/17 17:45 08/14/17 17:44 Al Hydrox/Mg Hydrox/Simethicone (Maalox Max Susp) 15 ml Q4H PRN PO 07/15/17 17:45 08/14/17 17:44 07/16/17 06:26 15 ML Magnesium Hydroxide (Milk Of Magnesia Susp) 30 ml Q12H PRN PO 07/15/17 17:45 08/14/17 17:44 Ondansetron HCl (Zofran Inj) 4 mg Q6H PRN IV 07/15/17 17:45 08/14/17 17:44 07/16/17 03:14 4 MG Nitroglycerin (Nitrostat Tab) 0.4 mg UD PRN SL 07/15/17 17:45 08/14/17 17:44 Morphine Sulfate (MoRPHine SULFATE INJ) 2 mg Q30M PRN IV 07/15/17 17:45 07/29/17 17:44 07/16/17 09:42 2 MG Polyethylene (Miralax Powder Packet) 17 gm DAILY PRN PO 07/15/17 17:45 08/14/17 17:44 07/16/17 03:28 17 GM Famotidine (Pepcid Tab) 20 mg BID PO 07/15/17 21:00 08/14/17 20:59 07/16/17 09:10 20 MG Aspirin (Ecotrin Tab) 325 mg DAILY PO 07/16/17 09:00 08/15/17 08:59 07/16/17 09:10 325 MG Fentanyl (Duragesic Patch) 50 mcg Q72H TD 07/17/17 09:00 07/31/17 08:59 Furosemide (Lasix Tab) 20 mg DAILY PO 07/16/17 09:00 08/15/17 08:59 Levothyroxine Sodium (Synthroid Tab) 50 mcg DAILYBB PO 07/16/17 06:00 08/15/17 06:59 07/16/17 06:20 50 MCG Multivitamins/ Minerals (Multivitamin W/ Minerals Tab) 1 tab DAILY PO 07/16/17 09:00 08/15/17 08:59 07/16/17 09:10 1 TAB Enteral Nutritional Formula (Boost) 1 can BIDM PO 07/15/17 18:00 08/14/17 17:59 07/16/17 09:10 1 CAN Simvastatin (Zocor Tab) 80 mg QPM PO 07/15/17 21:00 08/14/17 20:59 07/15/17 21:06 80 MG Lisinopril (Zestril Tab) 20 mg DAILY PO 07/16/17 09:00 08/15/17 08:59 Oxycodone HCl (Roxicodone Immediate Rel Tab) 5 mg Q6H PRN PO 07/15/17 17:45 07/29/17 17:44 07/16/17 03:18 5 MG Miscellaneous (Fentanyl Patch Remove & Waste) 1 ea Q3D@0859 N/A 07/17/17 08:59 08/16/17 08:58 Miscellaneous Information (Check Fentanyl Patch Placement) 1 ea QS N/A 07/16/17 00:00 08/15/17 00:00 07/16/17 08:00 1 EA Heparin Sodium/ Dextrose 500 ml @ 17 mls/hr Q24H IV 07/15/17 20:30 08/14/17 20:29 07/16/17 07:11 17 MLS/HR Physical Exam Vital Signs Past 12 Hours Date Time Temp Pulse Resp B/P (MAP) Pulse Ox O2 Delivery O2 Flow Rate FiO2 07/16/17 07:17 36.8 108 19 100/66 (77) 92 Nasal Cannula 3.0 07/16/17 04:00 Nasal Cannula 3.0 07/16/17 03:31 36.9 111 18 105/71 (82) 93 Room Air 07/16/17 00:20 36.8 105 18 106/70 (82) 95 3.0 07/16/17 00:01 Nasal Cannula 3.0 Constitutional: General Apperance: too thin Level of Distress: moderate distress Psychiatric: Mental Status: active & alert Head: normocephalic Eyes: EOM: EOMI ENMT: normal ENT inspection, hearing grossly normal Neck: supple, no masses Lungs: Respiratory effort: no dyspnea, good air movement Auscultation: breath sounds normal, no wheezing, decreased breath sounds ( On left) Cardiovascular: Heart Auscultation: RRR, no murmurs, no rubs, no gallops Peripheral Pulses: Bruits: none appreciated Abdomen: Bowel Sounds: normal Inspection & Palpation: soft, no tenderness, guarding & rebound, no masses Extremities: no edema Neurologic: Cranial Nerves: grossly intact Sensation: grossly intact Data Laboratory Results: Last 24 Hours Test 07/15/17 14:50 07/15/17 16:15 07/15/17 23:06 07/16/17 05:24 White Blood Count 10.03 K/uL 8.64 K/uL Red Blood Count 4.64 M/uL 4.00 M/uL Hemoglobin 11.0 g/dL 9.3 g/dL Hematocrit 35.3 % 30.2 % Mean Corpuscular Volume 76.1 fL 75.5 fL Mean Corpuscular Hemoglobin 23.7 pg 23.3 pg Mean Corpuscular Hemoglobin Concent 31.2 g/dl 30.8 g/dl Platelet Count 302 K/uL 264 K/uL Mean Platelet Volume 10.1 fL 10.2 fL Neutrophils (%) (Auto) 72.4 % 70.7 % Lymphocytes (%) (Auto) 12.0 % 13.2 % Monocytes (%) (Auto) 14.7 % 14.6 % Eosinophils (%) (Auto) 0.1 % 0.7 % Basophils (%) (Auto) 0.2 % 0.3 % Neutrophils # (Auto) 7.27 K/uL 6.11 K/uL Lymphocytes # (Auto) 1.20 K/uL 1.14 K/uL Monocytes # (Auto) 1.47 K/uL 1.26 K/uL Eosinophils # (Auto) 0.01 K/uL 0.06 K/uL Basophils # (Auto) 0.02 K/uL 0.03 K/uL RDW Standard Deviation 44.7 fL 45.0 fL RDW Coefficient of Variation 16.4 % 16.2 % Immature Granulocyte % (Auto) 0.6 % 0.5 % Immature Granulocyte # (Auto) 0.06 K/uL 0.04 K/uL Prothrombin Time 12.4 SECONDS Prothromb Time International Ratio 1.2 Activated Partial Thromboplast Time 27.2 SECONDS 33.7 SECONDS 43.0 SECONDS Partial Thromboplastin Ratio 1.0 1.3 1.7 Sodium Level 130 mmol/L 134 mmol/L Potassium Level 4.3 mmol/L 3.7 mmol/L Chloride Level 95 mmol/L 101 mmol/L Carbon Dioxide Level 28 mmol/L 25 mmol/L Anion Gap 7.0 mmol/L 8.0 mmol/L Blood Urea Nitrogen 23 mg/dl 16 mg/dl Creatinine 0.79 mg/dl 0.46 mg/dl Est Creatinine Clear Calc Drug Dose 53.7 ml/min 91.2 ml/min Estimated GFR () 83.1 110.4 Estimated GFR (Non- 71.7 95.3 BUN/Creatinine Ratio 28.7 33.6 Random Glucose 145 mg/dl 112 mg/dl Calcium Level 8.9 mg/dl 7.9 mg/dl Total Bilirubin 0.5 mg/dl Aspartate Amino Transf (AST/SGOT) 17 U/L Alanine Aminotransferase (ALT/SGPT) 12 U/L Alkaline Phosphatase 94 U/L Total Creatine Kinase 35 U/L Troponin I 1.380 ng/ml 1.930 ng/ml 1.760 ng/ml Pro-B-Type Natriuretic Peptide 74977 pg/ml Total Protein 7.3 gm/dl Albumin 2.5 gm/dl Globulin 4.8 gm/dl Albumin/Globulin Ratio 0.5 Urine Color YELLOW Urine Appearance CLEAR Urine pH 7.0 Urine Specific [place] 1.010 Urine Protein NEG Urine Glucose (UA) NEG Urine Ketones NEG Urine Occult Blood NEG Urine Nitrite NEG Urine Bilirubin NEG Urine Urobilinogen NEG Urine Leukocyte Esterase NEG Estimated Average Glucose 134 mg/dl Hemoglobin A1c 6.3 % Phosphorus Level 2.8 mg/dl Magnesium Level 1.7 mg/dl Triglycerides Level 93 mg/dl Cholesterol Level 88 mg/dl HDL Cholesterol 26 mg/dl LDL Cholesterol, Calculated 43 mg/dl VLDL Cholesterol, Calculated 19 mg/dl Cholesterol/HDL Ratio 3.4 Imaging: Chest x-ray shows small left pleural effusion EKG: Electrocardiogram shows sinus tachycardia with some anterior J-point elevation, there is some changes in the ST segments but no clear infarction pattern. Possibly consistent with pericarditis. Telemetry reviewed: Predominantly sinus tachycardia, no arrhythmia Assessment & Plan 1. Elevated troponin: Her troponin has been elevated, there is no clear trend with the admission troponin being 1.38, 8 hours later was 1.93 and another 6 hours later it was 1.76 (this morning). Her electrocardiogram is somewhat abnormal with some anterior ST elevation suggestive of either pericarditis or possibly injury. I would not be surprised if she has coronary artery disease since she has cerebrovascular disease and peripheral vascular disease, however she does not clearly have a cardiac ischemic event although it is certainly possible. I would recommend continuing to draw enzymes to see if a clear pattern emerges (the last troponin was slightly lower than the second). She was quite hypotensive on admission as well as being tachycardic and this may have produced significant demand ischemia with or without underlying coronary artery disease. I would not be in favor of invasive evaluation at this time. I would like to place her on low dose beta-blockade however (she has been on antihypertensives in the past but does not seem to be on a beta-shira). 2. Chest discomfort: She has chest discomfort but is difficult to sort out whether this is anginal in character, pericarditis or from her metastatic cancer. At this point I would not treat her chest discomfort with nitrates, although we may want to do that in the future. 3. History of pericardial effusion with window: With her history of pericardial effusion, window and the possibility that she is pericarditis now I think we should discontinue the heparin. If this is a cardiac thrombotic event than she should be on heparin, but is not clear that that is the case. I would like to get an echocardiogram to look for an effusion, as well as wall motion abnormalities. Thank you for allowing me to participate in her care.
[2017-07-16 15:15] LABS: INR 1.2 (0.9-1.1)
[2017-07-16] MEDS ORDERED: IRON SUCROSE INJ 300 MG in SODIUM CHLORIDE 0.9% 250ML 250 ML IV ONE (16:00)
[2017-07-16] MEDS: ACETAMINOPHEN 325 MG TAB PO PRN (16:31)
--- NOTE | 2017-07-16 16:59 | DIAGNOSTIC IMAGING REPORT ---
HEAD WITHOUT CONTRAST (CT) CLINICAL HISTORY: 77 years-old Female presenting with delirium, look for mets, rule out cva. TECHNIQUE: Multidetector CT imaging of the head was performed without the use of intravenous contrast. IV contrast: None. A dose lowering technique was used consistent with the principles of ALARA (as low as reasonably achievable). COMPARISON: None. CT DOSE (mGy.cm): The estimated cumulative dose is 614.27 mGy.cm. 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 Ventricles and sulci normal in size. Brain parenchyma normal in appearance with preserved barkley-white differentiation. No mass effect or midline shift. No hemorrhage or acute territorial infarct. No extra-axial fluid collection. Mucosal thickening in the left maxillary sinus. Calvarium intact. IMPRESSION: 1. No acute intracranial abnormality. Evaluation for metastatic disease is extremely limited in the absence of intravenous contrast. If there is clinical concern for this diagnosis, contrast-enhanced MR of the brain should be obtained. Electronically signed by: Boyd Bolivar M.D. 07/16/2017 4:58 PM Dictated Date/Time: 07/16/2017 4:54 PM
[2017-07-16] MEDS ORDERED: LORAZEPAM 0.5 MG TAB PO ONE (18:19)
--- NOTE | 2017-07-16 19:38 | Family Medicine Progress Note ---
Progress Note Date of Service July 16, 2017. Subjective Pt is somewhat somnolent during interview this morning. Says she is "just wiped " and "wants to go home to her couch". Complains of a chest heaviness in the center of chest, and also some mild epigastric abdominal pain. Nursing did call later in the day to report signs of acute delirium. Pt assessed, stable - head CT w/o contrast ordered and did not show any acute changes, and brain MRI recommended. Pt's daughter is in room with patient, supportive and reorienting her. ROS See HPI for pertinent positives and negatives. Objective Physical Exam Notes: GENERAL: Somnolent, but conversant, resting in bed, nasal cannula in place. HENT: Normocephalic, atraumatic. EYES: Normal conjunctiva. Sclera non-icteric. NECK: Supple. FROM. RESPIRATORY: Diminished at bases. CARDIAC: Regular rate, normal rhythm. Extremities warm and well perfused. Pulses equal. ABDOMEN: Soft, non-distended. No tenderness to palpation. No rebound or guarding. No masses. LOWER EXTREMITIES: Calves are equal size bilaterally and non-tender. No edema. No discoloration. NEURO: No motor deficits noted. SKIN: No rash or jaundice noted. Assessment and Plan 77 F here for tachycardia, hypotension and dyspnea. 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 Acute hypoxia/metastatic adenocarcinoma of lung/reaccumulation of effusion - Small 8mm spiculated nodule in LT upper lobe, no other mass burden, currently undergoing chemo therapy with Keytruda, completed radiation therapy. - CTA neg for PE - CXR shows Left elevated hemidiaphragm, LT pleural effusion - Cardiothoracic surg consulted. Elevated troponin/chest discomfort/h/o PAD/CVD - Cardiology consulted, appreciate recs. Cardiac ischemic event vs pericarditis vs demand ischemia - Review of echo shows apical wall motion abnormality and large filling defect ~3cm with sharp edges, clot vs tumor - Restart Heparin - Her spectrographic analyst, Dr. Lance to formally review echo tomorrow, awaiting further recs. Acute mental status change/encephalopathy/delirium? - pt developed mental status change in the afternoon, convinced she was in hospital basement and insisting to go home AMA. Pt's daughter in room with her , reorienting her. - Brain CT showed no acute change, Brain MRI with contrast to look for mets - ordered, pending. - Vitals remain stable, pt is afebrile, pressures have improved. Follow. Anemia - mixed - Says she has received iron infusion in past. - Follow. Hypothyroid - continue levothyroxine Hyperglycemia - no previous h/o diabetes. A1C is 6.3 - follow - may need ISS tomorrow Epigastric pain/GI ppx - continue famotidine. Not on ppi or h2b at home. DVT ppx: currently on heparin drip, SCDs/TEDS CODE: FULL Dispo: pcu Current Inpatient Medications Medications (Trade) Dose Ordered Sig/[place] Route Start Time Stop Time Status Last Admin Dose Admin Ioversol (Optiray 320) 125 ml UD PRN IV 07/15/17 16:30 07/19/17 16:29 Sodium Chloride 1,000 ml @ 100 mls/hr Q10H IV 07/15/17 17:39 08/14/17 17:38 07/16/17 13:45 100 MLS/HR Acetaminophen (Tylenol Tab) 650 mg Q4H PRN PO 07/15/17 17:45 08/14/17 17:44 07/16/17 16:31 650 MG Al Hydrox/Mg Hydrox/Simethicone (Maalox Max Susp) 15 ml Q4H PRN PO 07/15/17 17:45 08/14/17 17:44 07/16/17 06:26 15 ML Magnesium Hydroxide (Milk Of Magnesia Susp) 30 ml Q12H PRN PO 07/15/17 17:45 08/14/17 17:44 Ondansetron HCl (Zofran Inj) 4 mg Q6H PRN IV 07/15/17 17:45 08/14/17 17:44 07/16/17 03:14 4 MG Nitroglycerin (Nitrostat Tab) 0.4 mg UD PRN SL 07/15/17 17:45 08/14/17 17:44 Morphine Sulfate (MoRPHine SULFATE INJ) 2 mg Q30M PRN IV 07/15/17 17:45 07/29/17 17:44 07/16/17 09:42 2 MG Polyethylene (Miralax Powder Packet) 17 gm DAILY PRN PO 07/15/17 17:45 08/14/17 17:44 07/16/17 03:28 17 GM Famotidine (Pepcid Tab) 20 mg BID PO 07/15/17 21:00 08/14/17 20:59 07/16/17 09:10 20 MG Aspirin (Ecotrin Tab) 325 mg DAILY PO 07/16/17 09:00 08/15/17 08:59 07/16/17 09:10 325 MG Fentanyl (Duragesic Patch) 50 mcg Q72H TD 07/17/17 09:00 07/31/17 08:59 Furosemide (Lasix Tab) 20 mg DAILY PO 07/16/17 09:00 08/15/17 08:59 Levothyroxine Sodium (Synthroid Tab) 50 mcg DAILYBB PO 07/16/17 06:00 08/15/17 06:59 07/16/17 06:20 50 MCG Multivitamins/ Minerals (Multivitamin W/ Minerals Tab) 1 tab DAILY PO 07/16/17 09:00 08/15/17 08:59 07/16/17 09:10 1 TAB Enteral Nutritional Formula (Boost) 1 can BIDM PO 07/15/17 18:00 08/14/17 17:59 07/16/17 17:51 1 CAN Simvastatin (Zocor Tab) 80 mg QPM PO 07/15/17 21:00 08/14/17 20:59 07/15/17 21:06 80 MG Oxycodone HCl (Roxicodone Immediate Rel Tab) 5 mg Q6H PRN PO 07/15/17 17:45 07/29/17 17:44 07/16/17 11:53 5 MG Miscellaneous (Fentanyl Patch Remove & Waste) 1 ea Q3D@0859 N/A 07/17/17 08:59 08/16/17 08:58 Miscellaneous Information (Check Fentanyl Patch Placement) 1 ea QS N/A 07/16/17 00:00 08/15/17 00:00 07/16/17 16:27 1 EA Metoprolol Tartrate (Lopressor Tab) 25 mg BID PO 07/16/17 21:00 08/15/17 20:59 Heparin Sodium/ Dextrose 500 ml @ 17 mls/hr Q24H IV 07/16/17 14:15 08/15/17 14:14 07/16/17 14:20 17 MLS/HR Date Time Temp Pulse Resp B/P (MAP) Pulse Ox O2 Delivery O2 Flow Rate FiO2 07/16/17 16:33 36.6 102 22 106/73 (84) 97 Nasal Cannula 3.0 07/16/17 12:00 Nasal Cannula 3.0 07/16/17 11:20 36.8 108 19 99/63 (75) 94 Nasal Cannula 3.0 07/16/17 08:00 Nasal Cannula 3.0 07/16/17 07:17 36.8 108 19 100/66 (77) 92 Nasal Cannula 3.0 07/16/17 04:00 Nasal Cannula 3.0 07/16/17 03:31 36.9 111 18 105/71 (82) 93 Room Air 07/16/17 00:20 36.8 105 18 106/70 (82) 95 3.0 07/16/17 00:01 Nasal Cannula 3.0 07/16/17 05:24 Red Blood Count 4.00, Mean Corpuscular Volume 75.5, Mean Corpuscular Hemoglobin 23.3, Mean Corpuscular Hemoglobin Concent 30.8, Mean Platelet Volume 10.2, Neutrophils (%) (Auto) 70.7, Lymphocytes (%) (Auto) 13.2, Monocytes (%) (Auto) 14.6, Eosinophils (%) (Auto) 0.7, Basophils (%) (Auto) 0.3, Neutrophils # (Auto ) 6.11, Lymphocytes # (Auto) 1.14, Monocytes # (Auto) 1.26, Eosinophils # (Auto ) 0.06, Basophils # (Auto) 0.03 07/16/17 05:24 Test 07/16/17 05:24 07/16/17 12:13 07/16/17 14:45 07/16/17 18:04 White Blood Count 8.64 K/uL (4.8-10.8) Red Blood Count 4.00 M/uL (4.2-5.4) Hemoglobin 9.3 g/dL (12.0-16.0) Hematocrit 30.2 % (37-47) Mean Corpuscular Volume 75.5 fL (80-100) Mean Corpuscular Hemoglobin 23.3 pg (25-34) Mean Corpuscular Hemoglobin Concent 30.8 g/dl (32-36) Platelet Count 264 K/uL (130-400) Mean Platelet Volume 10.2 fL (7.4-10.4) Neutrophils (%) (Auto) 70.7 % Lymphocytes (%) (Auto) 13.2 % Monocytes (%) (Auto) 14.6 % Eosinophils (%) (Auto) 0.7 % Basophils (%) (Auto) 0.3 % Neutrophils # (Auto) 6.11 K/uL (1.4-6.5) Lymphocytes # (Auto) 1.14 K/uL (1.2-3.4) Monocytes # (Auto) 1.26 K/uL (0.11-0.59) Eosinophils # (Auto) 0.06 K/uL (0-0.5) Basophils # (Auto) 0.03 K/uL (0-0.2) RDW Standard Deviation 45.0 fL (36.4-46.3) RDW Coefficient of Variation 16.2 % (11.5-14.5) Immature Granulocyte % (Auto) 0.5 % Immature Granulocyte # (Auto) 0.04 K/uL (0.00-0.02) Anion Gap 8.0 mmol/L (3-11) Est Creatinine Clear Calc Drug Dose 91.2 ml/min Estimated GFR () 110.4 Estimated GFR (Non- 95.3 BUN/Creatinine Ratio 33.6 (10-20) Estimated Average Glucose 134 mg/dl Hemoglobin A1c 6.3 % (4.5-5.6) Calcium Level 7.9 mg/dl (8.5-10.1) Phosphorus Level 2.8 mg/dl (2.5-4.9) Magnesium Level 1.7 mg/dl (1.8-2.4) Triglycerides Level 93 mg/dl (0-150) Cholesterol Level 88 mg/dl (0-200) HDL Cholesterol 26 mg/dl LDL Cholesterol, Calculated 43 mg/dl VLDL Cholesterol, Calculated 19 mg/dl Cholesterol/HDL Ratio 3.4 Iron Level 13 mcg/dl (35-150) Total Iron Binding Capacity 241 mcg/dl (250-450) Transferrin 186 mg/dl (200-360) Transferrin % Saturation 5 % (15-50) Ferritin 30.2 ng/ml (8.0-388.0) Prothrombin Time 12.5 SECONDS (9.0-12.0) Prothromb Time International Ratio 1.2 (0.9-1.1) Activated Partial Thromboplast Time 32.0 SECONDS (21.0-31.0) Partial Thromboplastin Ratio 1.2 Random Cortisol 24.92 mcg/dl Troponin I 1.340 ng/ml (0-0.045) Continued [facility] stay due to: multiple IV medications needed Discharge planning: home Resident Tracking Resident Involvement: Resident Care Provided Care Provided: Adult [facility] Medicine Reviewed: Pt Seen/Exam by Me History denied complains - wants to go to sleep. Constitutional: denies: fever Cardiovascular: denies chest pain General Appearance: no apparent distress Respiratory: no respiratory distress, decreased breath sounds (base) Cardiovascular: regular rate, rhythm Neurologic/Psychiatric: alert, other (oriented to place and person) Skin Characteristics: warm/dry Assessment/Plan Resident Physician Supervision Note: I independently interviewed and examined the patient and verified the morillo history and physical, reviewed labs and image studies, discussed the case with the resident Dr. Glasgow and agree with the findings and care plan.
[2017-07-16 21:06] LABS: PTT PATIENT 46.4 SECONDS (21.0-31.0)
[2017-07-16] MEDS: METOPROLOL TARTRATE 25 MG TAB PO SCH (22:15)
[2017-07-16] MEDS: SIMVASTATIN 80 MG TAB PO SCH (22:16)
[2017-07-17 00:01] VITALS: O2SAT 94
[2017-07-17 00:17] VITALS: BP 110/74; PULSE 101; TEMP 36.7; O2SAT 98
[2017-07-17 04:00] VITALS: O2SAT 94
[2017-07-17 04:13] LABS: BASO % 0.4 %; BASO ABS # 0.03 K/uL (0-0.2); EOS % 2.6 %; EOS ABS # 0.19 K/uL (0-0.5); HEMATOCRIT 29.1 % (37-47); HEMOGLOBIN 8.9 g/dL (12.0-16.0); IG# 0.02 K/uL (0.00-0.02); LYMPH % 25.1 %; LYMPH ABS # 1.81 K/uL (1.2-3.4); MEAN CELL VOLUME 75.8 fL (80-100); MEAN CORPUSCULAR HEMOGLOBIN 23.2 pg (25-34); MEAN CORPUSCULAR HGB CONC 30.6 g/dl (32-36); MEAN PLATELET VOLUME 9.9 fL (7.4-10.4); MONO ABS # 1.08 K/uL (0.11-0.59); NEUT % 56.6 %; NEUT ABS # 4.07 K/uL (1.4-6.5); PLATELET COUNT 271 K/uL (130-400); RED CELL DISTRIBUTION WIDTH CV 16.2 % (11.5-14.5); RED CELL DISTRIBUTION WIDTH SD 45.2 fL (36.4-46.3)
[2017-07-17 04:32] LABS: CALCIUM 7.7 mg/dl (8.5-10.1); CREATININE 0.48 mg/dl (0.60-1.20); PHOSPHORUS 2.6 mg/dl (2.5-4.9); POTASSIUM 3.8 mmol/L (3.5-5.1)
[2017-07-17 04:37] LABS: PTT PATIENT 68.3 SECONDS (21.0-31.0)
[2017-07-17] MEDS: LEVOTHYROXINE 50 MCG TAB PO SCH (05:57)
[2017-07-17 06:44] VITALS: BP 119/80; PULSE 107; TEMP 36.6; O2SAT 94
--- NOTE | 2017-07-17 07:25 | Clinical Documentation Query ---
EVE Adkins : CLINICAL DOCUMENTATION QUERIES QUERY 1 OF 2 Patient is a 77 year old female admitted for evaluation of fatigue and dyspnea with exertion. Documentation includes the following: "Routine workup revealed a bump in the troponin to 1.380. There were some ST changes suggestive of ischemia. Dr. Portillo was contacted and patient was placed on a heparin drip". At time of cardiology consultation, patient complaining of diffuse pain, "especially in her chest and ribs". Cardiology noted "no clear trend in troponin", although it did climb to a peak and then decline in a consistently decreasing fashion. He noted "I would not be surprised if she has coronary artery disease since she has cerebrovascular disease and peripheral vascular disease, however she does not clearly have a cardiac ischemic event although it is certainly possible". Echocardiogram demonstrated apical WMA with ~cm fililing defect. Heparin was initiated. Above suggestive for possibility of type 2 PR if due to demand ischemia. In your clinical opinion is this patient being managed for: ( x ) NSTEMI ( ) Not Agree ( ) Other explanation of clinical findings (Please Explain. If no explanation given, this would be considered a no response.) ( ) Unable to determine ( ) Need to Discuss (Please call CDS via extension or Skin Scan. If no interaction occurs this is considered a no response.) The medical record reflects the following clinical findings, treatment, and risk factors. Clinical Indicators: Elevated troponin, WMA on echocardiogram, EKG changes, chest discomfort Treatment: Cardiology consultation, Heparin IV, serial cardiac enzymes, echocardiogram, serial EKG's, telemetry, lopressor, ASA Risk Factors: Age, hypoxia, increased work of breathing, tachycardia, COPD, lung CA, hypotension, recurrent pleural effusion. QUERY 2 OF 2 BMI noted to be < 20 kg/m*m. This can only be captured by the trailer mechanic with either explicit documentation thereof or documentation of a condition directly associated with a low BMI. In your clinical opinion, is this patient: ( ) Underweight, BMI 19.9 kg/m*m ( x ) Not Agree ( ) Other explanation of clinical findings (Please Explain. If no explanation given, this would be considered a no response.) ( ) Unable to determine ( ) Need to Discuss (Please call CDS via extension or qliq. If no interaction occurs this is considered a no response.) The medical record reflects the following clinical findings, treatment, and risk factors. Clinical Indicators: As above Treatment: AHA diet with Boost supplemental shakes Risk Factors: Cancer, shortness of breath, pain Please clarify and document your clinical opinion in the progress notes and discharge summary. Terms such as "probable", "suspected", "likely", "questionable", "possible", or "still to be ruled out" are acceptable. IF IN AGREEMENT, YOU MUST DOCUMENT ABOVE DIAGNOSTIC STATEMENT IN DAILY PROGRESS NOTES AND DISCHARGE SUMMARY. This document is not part of the patient's record. Thank You, Robby Rodriguez, RN [phone]
--- NOTE | 2017-07-17 07:26 | DIAGNOSTIC IMAGING REPORT ---
CHEST ONE VIEW PORTABLE CLINICAL HISTORY: Hypoxia COMPARISON STUDY: 07/15/2017 FINDINGS: The heart is enlarged. There is elevation interstitium, consistent with congestive failure/fluid overload. There is a persistent left pleural effusion. There are associated left basilar airspace opacities, likely representing compressive atelectasis.[ IMPRESSION: 1. Cardiomegaly and mild interstitial edema 2. Persistent left pleural effusion. Trace right pleural effusion 3. Left basal airspace opacities, possibly secondary to compressive atelectasis Electronically signed by: Deshaun Coello M.D. 07/17/2017 7:25 AM Dictated Date/Time: 07/17/2017 7:23 AM
[2017-07-17] MEDS: BOOST VANILLA PO SCH ×2 (07:30→17:00)
[2017-07-17] MEDS: ONDANSETRON INJ 2 MG/ML 2 ML VIAL IV PRN (07:56)
[2017-07-17] MEDS: CHECK FENTANYL PATCH PLACEMENT SCH ×3 (08:00→15:40)
[2017-07-17] MEDS: ACETAMINOPHEN 325 MG TAB PO PRN ×3 (08:01→17:02)
[2017-07-17] MEDS ORDERED: FENTANYL PATCH REMOVE & WASTE SCH (08:59)
[2017-07-17] MEDS ORDERED: FENTANYL 50 MCG/HR TDSY TD SCH (09:00)
[2017-07-17] MEDS: FUROSEMIDE 20 MG TAB PO SCH (09:00)
--- NOTE | 2017-07-17 09:10 | ECHOCARDIOGRAM REPORT ---
*NOTICE TO RECEIVING REPUBLICAN AGENCY This information is strictly Confidential and protected under [place] law. [place] law prohibits you from making any further disclosure of this information unless further disclosure is expressly permitted by the written consent of the person to whom it pertains or is authorized by law. A general authorization for the release of medical or other information is not sufficient for this purpose. Hospital accepts no responsibility if the information is made available to any other person, INCLUDING THE PATIENT. Interpretation Summary * Name: OMARI HASSAN Study Date: 07/16/2017 01:03 PM * Patient Location: .2\S\E218\S\1 * : 1940 (M/d/yyyy) Gender: Female Height: 67 in * Age: 77 yrs Ethnicity: [place] Weight: 126 lb * Ordering Physician: Jaziel Hernandez * Referring Physician: No Doctor, Assigned * Performed By: Waylon Salinas RCS * * Reason For Study: Chest Pain * BSA: 1.7 m2 * -- Conclusions -- * The left ventricle is normal in size. * There is normal left ventricular wall thickness. * Focal thickening of the basal septum with no evidence of left ventricular outflow obstruction. * Left ventricular systolic function is moderately reduced. * LVEF 35% * The mid to distal anterior , anteroseptum, septum, inferoapex and apex are thin and akinetic c/w LAD infract. * There is a well circumscribed 2.7x2.9 cm LV apical mass c/w thrombus. With definity contrast there is no evidence of enhancement of the mass. * The right ventricle is normal in size and function. * The left atrium is severely dilated. * Aortic valve sclerosis mild, without significant aortic valvular stenosis. * The mitral valve leaflets appear thickened, but open well. * There is mild to moderate mitral regurgitation. * PA systolic 40 mm/hg * Grade I diastolic dysfunction, (abnormal relaxation pattern). * Compared to the outpy echo 1 month ago the LAD wall motion abnormality and LV apical thrombus are new. Procedure Details * A complete two-dimensional transthoracic echocardiogram was performed (2D, M-mode, Doppler and color flow Doppler). * A contrast injection of Definity was performed to improve assessment for apical thrombus. * Contrast was injected into an intravenous site in the left arm. * One vial of Definity ultrasound contrast was diluted in normal saline to a total volume of 10 ml. A total of '1' ml of solution was administered during imaging. * Lot # [id number] of Definity utilized for procedure. * Expiration date . * The attending nurse who injected the contrast agent was mUa Baez RN. Left Ventricle * The left ventricle is normal in size. * There is normal left ventricular wall thickness. * Focal thickening of the basal septum with no evidence of left ventricular outflow obstruction. * Left ventricular systolic function is moderately reduced. * LVEF 35% * The mid to distal anterior , anteroseptum, septum, inferoapex and apex are thin and akinetic c/w LAD infract. There is a well circumscribed 2.7x2.9 cm LV apical mass c/w thrombus. With definity contrast there is no evidence of enhancement of the mass. Right Ventricle * The right ventricle is normal in size and function. Atria * The left atrium is severely dilated. * The right atrium is mildly dilated. Mitral Valve * The mitral valve leaflets appear thickened, but open well. * There is mild to moderate mitral regurgitation. Tricuspid Valve * The tricuspid valve is not well visualized, but is grossly normal. * There is mild to moderate tricuspid regurgitation. * PA systolic 40 mm/hg Aortic Valve * Aortic valve sclerosis mild, without significant aortic valvular stenosis. Pulmonic Valve * The pulmonic valve is not well seen, but is grossly normal. * Mild pulmonic valvular regurgitation. Great Vessels * The aortic root is normal size. * There is aortic root sclerosis/calcification. Pericardium/Pleural * There is no pericardial effusion. Great Vessels * Normal inferior vena cava size and collapsability with sniff indicates a normal right atrial pressure of 3 mmHg Left Ventricular Diastolic Function * Grade I diastolic dysfunction, (abnormal relaxation pattern). MMode 2D Measurements and Calculations IVSd 1.0 cm IVSs 1.2 cm LVIDd 4.8 cm LVIDs 3.9 cm LVPWd 1.1 cm LVPWs 1.5 cm IVS/LVPW 0.91 FS 17.8 % EDV(Teich) 107.4 ml ESV(Teich) 67.7 ml EF(Teich) 37.0 % EDV(cubed) 110.4 ml ESV(cubed) 61.3 ml EF(cubed) 44.4 % % IVS thick 23.2 % % LVPW thick 32.0 % LV mass(C)d 184.0 grams LV mass(C)dI 110.7 grams/m\S\2 LV mass(C)s 194.4 grams LV mass(C)sI 117.0 grams/m\S\2 SV(Teich) 39.7 ml SI(Teich) 23.9 ml/m\S\2 SV(cubed) 49.1 ml SI(cubed) 29.5 ml/m\S\2 Ao root diam 3.2 cm Ao root area 8.2 cm\S\2 ACS 1.6 cm LA dimension 4.6 cm asc Aorta Diam 3.3 cm LA/Ao 1.4 Doppler Measurements and Calculations Ao V2 max 131.1 cm/sec Ao max PG 6.9 mmHg Ao max PG (full) 2.2 mmHg LV V1 max PG 4.7 mmHg LV V1 max 108.3 cm/sec PA V2 max 85.1 cm/sec PA max PG 2.9 mmHg PI max nimo 191.4 cm/sec PI max PG 14.7 mmHg PI dec slope 238.5 cm/sec\S\2 PI P1/2t 235.1 msec TR max nimo 283.1 cm/sec
[2017-07-17] MEDS: ASPIRIN 325 MG ECTAB PO SCH (09:13)
[2017-07-17] MEDS: METOPROLOL TARTRATE 25 MG TAB PO SCH ×2 (09:13→20:23)
[2017-07-17] MEDS: CEROVITE ADV FORMULA TAB PO SCH (09:13)
[2017-07-17] MEDS: FAMOTIDINE 20 MG TAB PO SCH ×2 (09:13→20:23)
--- NOTE | 2017-07-17 09:41 | Cardiology Follow-Up ---
Subjective General Date of Service: July 17, 2017. Pt evaluation today including: conversation w/ patient, conversation w/ family , chart review, lab review, review of studies History of Present Illness The patient is a 77 year old female Allergies Coded Allergies: No Known Allergies (Verified , NONE, 06/16/17) Social History Smoking Status: Current Every Day Smoker Hx Tobacco Use In Past Year?: Yes Hx Alcohol Use - Type And Amou: No Hx Substance Use - Type And Am: Yes Problem List Medical Problems: (1) Dehydration Status: Acute (2) Elevated troponin Status: Acute (3) Encounter for smoking cessation counseling Status: Acute (4) SOB (shortness of breath) Status: Acute Review of Systems Respiratory: + shortness of breath, No cough, No dyspnea at rest Cardiac: + chest pain, + edema, No palpitations Additional ROS Details: Anterior posterior CP from abdomen to neck More Lucid today with intelligent conversation diffuse pain and frustrated with how she feels Rest of ROS -- Physical Exam Vital Signs Last Vital Signs Documentation Date Time Temp Pulse Resp B/P (MAP) Pulse Ox O2 Delivery O2 Flow Rate FiO2 07/17/17 06:44 36.6 107 20 119/80 (93) 94 Nasal Cannula 3.0 Physical Exam Constitutional: General Apperance: too thin Level of Distress: mild distress Psychiatric: Mental Status: active & alert Eyes: EOM: EOMI Lungs: Respiratory effort: no dyspnea, good air movement Auscultation: breath sounds normal, no wheezing, decreased breath sounds ( On left base) Cardiovascular: Heart Auscultation: RRR, no murmurs, no rubs, no gallops Peripheral Pulses: Carotid Pulse: normal on the left Abdomen: Bowel Sounds: normal Inspection & Palpation: soft, no tenderness, guarding & rebound, no masses Extremities: edema (mild) Assessment and Plan Assessment and Plan 1. Small non-ST elevation myocardial infarction. 2. Moderate left ventricular dysfunction with an ejection fraction of 35%. 3 LV apical thrombus measuring 2.7 x 2.9 cm 4. Stage IV metastatic lung cancer with pleural effusion 5. Previous metastatic pericardial effusion status post pericardial window I personally reviewed her echocardiogram. The 2.7 x 2.9 cm apical mass is most consistent with LV thrombus. There is an associated LAD wall motion abnormality involving the mid to distal anterior wall, apex, septum, and anterior septum. With Definity echo contrast there is no evidence of enhancement of the LV apical mass. This is therefore most consistent with a thrombus rather than a primary tumor. In discussion of the results of her echocardiogram with Rosalee and her daughter , Rosalee would like to proceed with hospice care at this point. I discussed the benefits of hospice in detail. This includes a better quality of life at the end of life, less pain and better control of her anxiety. Rosalee and her family would like to meet with outpatient hospice as soon as possible. This was discussed with the nursing staff and social workers. From a cardiac standpoint she should be on low-dose aspirin 81 mg daily. She should be anticoagulated given the LV thrombus with apixaban 5 mg twice daily. She should remain on beta-blockers. The benefit of statin therapy at this point is not significant and can be stopped. I did discuss with Rosalee that based on her outpatient echocardiogram of a month ago there was no evidence of an LAD wall motion abnormality nor an LV thrombus. In addition her last outpatient echo and her current echo suggests that her pericardial effusion has resolved. Laboratory Results Last 24 Hours Test 07/16/17 12:13 07/16/17 14:45 07/16/17 18:04 07/16/17 20:32 Iron Level 13 mcg/dl Total Iron Binding Capacity 241 mcg/dl Transferrin 186 mg/dl Transferrin % Saturation 5 % Ferritin 30.2 ng/ml Troponin I 1.410 ng/ml 1.340 ng/ml Prothrombin Time 12.5 SECONDS Prothromb Time International Ratio 1.2 Activated Partial Thromboplast Time 32.0 SECONDS 46.4 SECONDS Partial Thromboplastin Ratio 1.2 1.8 Random Cortisol 24.92 mcg/dl Test 07/17/17 04:06 White Blood Count 7.20 K/uL Red Blood Count 3.84 M/uL Hemoglobin 8.9 g/dL Hematocrit 29.1 % Mean Corpuscular Volume 75.8 fL Mean Corpuscular Hemoglobin 23.2 pg Mean Corpuscular Hemoglobin Concent 30.6 g/dl Platelet Count 271 K/uL Mean Platelet Volume 9.9 fL Neutrophils (%) (Auto) 56.6 % Lymphocytes (%) (Auto) 25.1 % Monocytes (%) (Auto) 15.0 % Eosinophils (%) (Auto) 2.6 % Basophils (%) (Auto) 0.4 % Neutrophils # (Auto) 4.07 K/uL Lymphocytes # (Auto) 1.81 K/uL Monocytes # (Auto) 1.08 K/uL Eosinophils # (Auto) 0.19 K/uL Basophils # (Auto) 0.03 K/uL RDW Standard Deviation 45.2 fL RDW Coefficient of Variation 16.2 % Immature Granulocyte % (Auto) 0.3 % Immature Granulocyte # (Auto) 0.02 K/uL Hypochromasia PRESENT Activated Partial Thromboplast Time 68.3 SECONDS Partial Thromboplastin Ratio 2.6 Sodium Level 135 mmol/L Potassium Level 3.8 mmol/L Chloride Level 107 mmol/L Carbon Dioxide Level 23 mmol/L Anion Gap 5.0 mmol/L Blood Urea Nitrogen 11 mg/dl Creatinine 0.48 mg/dl Est Creatinine Clear Calc Drug Dose 87.4 ml/min Estimated GFR () 108.9 Estimated GFR (Non- 94.0 BUN/Creatinine Ratio 22.4 Random Glucose 107 mg/dl Calcium Level 7.7 mg/dl Phosphorus Level 2.6 mg/dl Magnesium Level 2.2 mg/dl
[2017-07-17] MEDS: SODIUM CHLORIDE 0.9% 1000ML 1,000 ML IV SCH (09:57)
--- NOTE | 2017-07-17 12:44 | Palliative Care Consultation ---
Consultation Date of Consultation: July 17, 2017. Requesting Physician: Dr. Glasgow Attending Physician: Dr. Casiano Reason for Consultation: Goals of Care History of Present Illness This is a 77 year old pleasant female who presented to the hospital with CHÁVEZ and fatigue. This patient has a PMH of pericardial and pleural effusions as a result of metastatic adenocarcinoma. Dr.'s Carbajal and Radha follow her closely through radiation oncology; however, she is expressing that she would like to stop all treatment. She is scheduled to have a thoracentesis today with Dr. Zhou at the bedside for which she is consenting to. There are 3 grown adult children, Martha, Tomas and Matthew (brothers share POA) who would like to have a family meeting tomorrow with Palliative Care (07/18 at 0800) at the bedside to discuss hospice and GOALS OF CARE. The family is aware that the prognosis is overall poor. CODE STATUS was addressed today and the patient would like to be changed from Full code to DNR/DNI. Thank you kindly for involving the Palliative Care team in this patients care. We will follow accordingly. Past Medical/Surgical History Medical History: metastatic stage IV adenocarcinoma pericardial effusions malignant pleural effusions HTN Social History Smoking Status: Current Every Day Smoker History of Alcohol Use: No Drug Use: none Marital Status: Housing Status: lives alone (Although patient lives alone she has family the stops and daily and lives nearby) Occupation Status: unemployed Review of Systems General: Pt sitting up on the side of the bed. She was able to do this on her own. Pt denies any acute distress HEENT: Pt denies DIXON, dizziness CV: Pt denies CP, edema, palpitations Resp: Pt using accessory muscles for breathing GI: Pt denies abdominal pain, N/V/D Skin: Pt denies any new rashes Allergies Coded Allergies: No Known Allergies (Verified , NONE, 06/16/17) Medications Current Inpatient Medications Medications (Trade) Dose Ordered Sig/Chalino Route Start Time Stop Time Status Last Admin Dose Admin Ioversol (Optiray 320) 125 ml UD PRN IV 07/15/17 16:30 07/19/17 16:29 Sodium Chloride 1,000 ml @ 100 mls/hr Q10H IV 07/15/17 17:39 08/14/17 17:38 07/17/17 09:57 100 MLS/HR Acetaminophen (Tylenol Tab) 650 mg Q4H PRN PO 07/15/17 17:45 08/14/17 17:44 07/17/17 08:01 650 MG Al Hydrox/Mg Hydrox/Simethicone (Maalox Max Susp) 15 ml Q4H PRN PO 07/15/17 17:45 08/14/17 17:44 07/16/17 06:26 15 ML Magnesium Hydroxide (Milk Of Magnesia Susp) 30 ml Q12H PRN PO 07/15/17 17:45 08/14/17 17:44 Ondansetron HCl (Zofran Inj) 4 mg Q6H PRN IV 07/15/17 17:45 08/14/17 17:44 07/17/17 07:56 4 MG Nitroglycerin (Nitrostat Tab) 0.4 mg UD PRN SL 07/15/17 17:45 08/14/17 17:44 Morphine Sulfate (MoRPHine SULFATE INJ) 2 mg Q30M PRN IV 07/15/17 17:45 07/29/17 17:44 07/16/17 22:16 2 MG Polyethylene (Miralax Powder Packet) 17 gm DAILY PRN PO 07/15/17 17:45 08/14/17 17:44 07/16/17 03:28 17 GM Famotidine (Pepcid Tab) 20 mg BID PO 07/15/17 21:00 08/14/17 20:59 07/17/17 09:13 20 MG Aspirin (Ecotrin Tab) 325 mg DAILY PO 07/16/17 09:00 08/15/17 08:59 07/17/17 09:13 325 MG Fentanyl (Duragesic Patch) 50 mcg Q72H TD 07/17/17 09:00 07/31/17 08:59 07/17/17 09:14 50 MCG Furosemide (Lasix Tab) 20 mg DAILY PO 07/16/17 09:00 08/15/17 08:59 Levothyroxine Sodium (Synthroid Tab) 50 mcg DAILYBB PO 07/16/17 06:00 08/15/17 06:59 07/17/17 05:57 50 MCG Multivitamins/ Minerals (Multivitamin W/ Minerals Tab) 1 tab DAILY PO 07/16/17 09:00 08/15/17 08:59 07/17/17 09:13 1 TAB Enteral Nutritional Formula (Boost) 1 can BIDM PO 07/15/17 18:00 08/14/17 17:59 07/16/17 17:51 1 CAN Simvastatin (Zocor Tab) 80 mg QPM PO 07/15/17 21:00 08/14/17 20:59 07/16/17 22:16 80 MG Oxycodone HCl (Roxicodone Immediate Rel Tab) 5 mg Q6H PRN PO 07/15/17 17:45 07/29/17 17:44 07/16/17 11:53 5 MG Miscellaneous (Fentanyl Patch Remove & Waste) 1 ea Q3D@0859 N/A 07/17/17 08:59 08/16/17 08:58 07/17/17 09:16 1 EA Miscellaneous Information (Check Fentanyl Patch Placement) 1 ea QS N/A 07/16/17 00:00 08/15/17 00:00 07/17/17 08:00 1 EA Metoprolol Tartrate (Lopressor Tab) 25 mg BID PO 07/16/17 21:00 08/15/17 20:59 07/17/17 09:13 25 MG Heparin Sodium/ Dextrose 500 ml @ 19 mls/hr Q24H IV 07/16/17 14:15 08/15/17 14:14 07/16/17 22:14 19 MLS/HR Physical Exam Date Time Temp Pulse Resp B/P (MAP) Pulse Ox O2 Delivery O2 Flow Rate FiO2 07/17/17 08:00 Nasal Cannula 3.0 07/17/17 06:44 36.6 107 20 119/80 (93) 94 Nasal Cannula 3.0 07/17/17 04:00 94 Nasal Cannula 3.0 07/17/17 00:17 36.7 101 18 110/74 (86) 98 Nasal Cannula 3.0 07/17/17 00:01 94 Room Air 3.0 07/16/17 22:26 36.5 22 106/72 (83) 84 Room Air 07/16/17 20:00 94 Nasal Cannula 3.0 07/16/17 19:37 36.7 98 18 95/63 (74) 93 Nasal Cannula 3.0 07/16/17 16:33 36.6 102 22 106/73 (84) 97 Nasal Cannula 3.0 07/16/17 16:00 94 Nasal Cannula 3.0 General Appearance: + mild distress Respiratory: chest non-tender, + decreased breath sounds, + accessory muscle use Cardiovascular: regular rate, rhythm, no edema, no gallop, no JVD, no murmur Abdomen: normal bowel sounds, non tender, soft Neurologic/Psychiatric: oriented x 3 Skin: warm/dry Laboratory Results Last 24 Hours Test 07/16/17 14:45 07/16/17 18:04 07/16/17 20:32 07/17/17 04:06 Prothrombin Time 12.5 SECONDS Prothromb Time International Ratio 1.2 Activated Partial Thromboplast Time 32.0 SECONDS 46.4 SECONDS 68.3 SECONDS Partial Thromboplastin Ratio 1.2 1.8 2.6 Random Cortisol 24.92 mcg/dl Troponin I 1.340 ng/ml White Blood Count 7.20 K/uL Red Blood Count 3.84 M/uL Hemoglobin 8.9 g/dL Hematocrit 29.1 % Mean Corpuscular Volume 75.8 fL Mean Corpuscular Hemoglobin 23.2 pg Mean Corpuscular Hemoglobin Concent 30.6 g/dl Platelet Count 271 K/uL Mean Platelet Volume 9.9 fL Neutrophils (%) (Auto) 56.6 % Lymphocytes (%) (Auto) 25.1 % Monocytes (%) (Auto) 15.0 % Eosinophils (%) (Auto) 2.6 % Basophils (%) (Auto) 0.4 % Neutrophils # (Auto) 4.07 K/uL Lymphocytes # (Auto) 1.81 K/uL Monocytes # (Auto) 1.08 K/uL Eosinophils # (Auto) 0.19 K/uL Basophils # (Auto) 0.03 K/uL RDW Standard Deviation 45.2 fL RDW Coefficient of Variation 16.2 % Immature Granulocyte % (Auto) 0.3 % Immature Granulocyte # (Auto) 0.02 K/uL Hypochromasia PRESENT Sodium Level 135 mmol/L Potassium Level 3.8 mmol/L Chloride Level 107 mmol/L Carbon Dioxide Level 23 mmol/L Anion Gap 5.0 mmol/L Blood Urea Nitrogen 11 mg/dl Creatinine 0.48 mg/dl Est Creatinine Clear Calc Drug Dose 87.4 ml/min Estimated GFR () 108.9 Estimated GFR (Non- 94.0 BUN/Creatinine Ratio 22.4 Random Glucose 107 mg/dl Calcium Level 7.7 mg/dl Phosphorus Level 2.6 mg/dl Magnesium Level 2.2 mg/dl Assessment & Plan Palliative Performance Scale: 40 % Palliative Care Encounter Goals of Care metastatic stage IV lung cancer pericardial effusions malignant pleural effusions Palliative Care Recommendations: -CODE STATUS was discussed with the patient and she would like to be DNR/ DNI. -Family would like to have family meeting at 0800 on 07/18/17 to finalize goals of care with anticipated transfer to comfort measures and discharge with hospice care. -As patient is declining use of the heart monitor - consider transfer to medical Counseling and Coordination Total time spent 70 minutes with >50% of that time reviewing the chart, assessing the patient, discussing CODE STATUS with the patient and arranging a family meeting for tomorrow 07/18
--- NOTE | 2017-07-17 13:10 | [facility] Post Operative Brief Note ---
Immediate Operative Summary Operative Date July 17, 2017. Pre-Operative Diagnosis left pleural effusion Post-Operative Diagnosis same Procedure(s) Performed left thoracentesis under u/s guidance Surgeon [employer] Manager Surgeon(s) idris Estimated Blood Loss 0 Findings Consistent with Post-Op Diagnosis Specimens 700 cc'x pleural fluid Drains None Anesthesia Type Local
[2017-07-17] MEDS ORDERED: APIXABAN 2.5 MG TAB PO ONE (13:45)
--- NOTE | 2017-07-17 13:50 | OPERATIVE REPORT ---
DATE OF OPERATION: 07/17/2017 PROCEDURE: Left thoracentesis under ultrasound guidance. SURGEON: David Zhou MD PIEROGI MAKER: KAYLEE Harley. ANESTHESIA: Local. SPECIFICS OF PROCEDURE: The patient was in seated position. Ultrasound was used to find a small window in the posterior lateral aspect at about the ninth interspace just above the diaphragm. Skin wheal was raised with 25 gauge needle after prepping and draping in the usual sterile fashion. Appropriate timeout was called. A large bore needle was used to anesthetize the deeper tissues, and then a large needle was used to anesthetize the muscle layers and pleura, and a light yellow fluid was aspirated. A guidewire was inserted through the needle and needle removed. A triple lumen catheter was slid over the guidewire, and approximately 700 mL of a yellow-tinged fluid was drained. She had very little in the way of reexpansion coughing, but we could not drain anymore. We removed the catheter. Chest x-ray is pending at this time. She tolerated it well. I attest to the content of the Intraoperative Record and any orders documented therein. Any exception s are noted below.
--- NOTE | 2017-07-17 13:56 | DIAGNOSTIC IMAGING REPORT ---
CHEST ONE VIEW PORTABLE CLINICAL HISTORY: 77 years-old Female presenting with effusion . TECHNIQUE: Portable upright AP view of the chest was obtained. COMPARISON: 07/17/2017 at 6:36 AM. FINDINGS: Atherosclerosis of aortic arch. Cardiac silhouette enlarged. Slight interval decrease in pulmonary vascular prominence. Bronchial wall thickening unchanged. Persistent prominence of lung markings. Slight interval decrease in left basilar opacity and moderate left pleural effusion. No large pneumothorax. Osseous structures normal. Elevation of the left hemidiaphragm may be present. IMPRESSION: 1. Slight interval improvement in left lung aeration and decreasing volume overload/congestive change. 2. Cardiomegaly. 3. Slight interval decrease in moderate left pleural effusion. Electronically signed by: Boyd Bolivar M.D. 07/17/2017 1:55 PM Dictated Date/Time: 07/17/2017 1:53 PM
--- NOTE | 2017-07-17 14:00 | SURGICAL CONSULTATION ---
DATE OF CONSULTATION: 07/17/2017 REASON FOR CONSULTATION: Left pleural effusion. HISTORY OF PRESENT ILLNESS: This is a very nice 77-year-old female that I know well. I performed a thoracoscopic pericardial window on her for malignant pericardial effusion about 2 months ago. She also had malignant cells in her left pleural cavity on washings. This was a malignant pericardial effusion. She also had bone mets which were quite painful and saw Dr. Garcia and had radiation which helped this pain. She was also seen by Dr. Karl Carbajal. She is finished with her radiation therapy but presents now with decreasing shortness of breath. She is also quite fatigued and has marked dyspnea. Denies fevers or productive cough. The question is about whether or not she had a cardiac involvement. She was admitted 2 days ago to . The patient has been smoking and has widely metastatic lung cancer. I was asked to comment on this left pleural effusion. PAST MEDICAL HISTORY: 1. Stage IV adenocarcinoma of the left upper lobe. 2. Bony metastases. 3. Increasing respiratory failure. 4. Active cigarette smoking. 5. Chronic obstructive pulmonary disease. 6. Hypertension. 7. Hyperlipidemia. 8. Hyponatremia. 9. Hypothyroidism. 10. Bilateral carotid stenosis. 11. Peripheral arterial disease. PAST SURGICAL HISTORY: 1. Right thoracoscopy with pericardial window. 2. Right carotid endarterectomy. MEDICATIONS: See chart. ALLERGIES: No known drug allergies. SOCIAL HISTORY: Patient lives alone. She has been working at the time this occurred, a few months ago. She does live independently but her family is very supportive. She is . She does smoke cigarettes, although it is just a few cigarettes a day now. FAMILY MEDICAL HISTORY: Significant for hypertension, diabetes. REVIEW OF SYSTEMS: Please see history of present illness. PHYSICAL EXAMINATION: GENERAL: This is a very nice 5-foot 7-inch, 127-pound female who is awake, alert and oriented. She wears glasses. HEENT: Extraocular movements are intact. Her pupils are pale. She has had some temporal wasting. Tongue is midline. She has no neck vein distention. She has no tracheal deviation. LUNGS: She has decreased breath sounds in the left. She also has evidence of subcutaneous metastases posteriorly. She has better aeration on the right. HEART: She has a regular rate and rhythm of her heart. ABDOMEN: Soft, nontender. EXTREMITIES: She has 1+ edema of her lower legs. She has no joint effusions. NEUROLOGIC: She is awake and alert with no obvious focal deficits. DATA: I reviewed her CT scan, she does have homogenous effusion compressing her left lower lobe, although it is not a great amount, I think it is affecting her breathing. ASSESSMENT AND PLAN: Probable metastatic left pleural effusion. We are going to proceed with a thoracentesis for comfort alone as she is now considering hospice. MTDD
--- NOTE | 2017-07-17 15:25 | Family Medicine Progress Note ---
Progress Note Date of Service July 17, 2017. Subjective Pt visibly agitated and exhausted this AM. She expresses that she wants to go home. She is refusing further brain imaging. Pt is alert and oriented this morning, however daughter at bedside states that she was confused from time to time overnight. Discussed poor prognosis, and how quickly this has all come about in the last month and a half -- daughter is tearful and pt stays silent, with her eyes closed. Pt states she still has a pain in her mid chest, although does not report a cough or difficulty breathing. Is uncomfortable and trying to maneuver oxygen tubes and quality assurance monitor body wires. ROS See HPI for pertinent positives and negatives. Objective Physical Exam Notes: GENERAL: Conversant, sitting up in bed, nasal cannula in place. Alert and oriented x 4. HENT: Normocephalic, atraumatic. EYES: Normal conjunctiva. Sclera non-icteric. NECK: Supple. FROM. RESPIRATORY: Diminished at bases. CARDIAC: Regular rate, normal rhythm. Extremities warm and well perfused. Pulses equal. ABDOMEN: Soft, non-distended. No tenderness to palpation. No rebound or guarding. No masses. LOWER EXTREMITIES: Calves are equal size bilaterally and non-tender. No edema. No discoloration. NEURO: No motor deficits noted. SKIN: No rash or jaundice noted. Assessment and Plan 77 F here for tachycardia, hypotension and dyspnea. 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 Acute hypoxia/metastatic adenocarcinoma of lung stage 4/reaccumulation of effusion - Small 8mm spiculated nodule in LT upper lobe, no other mass burden, currently undergoing chemo therapy with Keytruda, completed radiation therapy. - CTA neg for PE - CXR shows Left elevated hemidiaphragm, LT pleural effusion - Cardiothoracic surg consulted, appreciate recs. S/p left thoracentesis, 700ccs drained, pt tolerated well. NSTEMI type II - Elevated troponin/chest discomfort/h/o PAD/CVD - Cardiology consulted, appreciate recs. Demand ischemia, wall thrombus - Review of echo shows apical wall motion abnormality and large filling defect ~3cm with sharp edges, which has been classified as a thrombus on review by Dr. Lance. - DC heparin. Begin Apixiban 5mg BID, ASA 81mg. - Statin not seen as beneficial at this time and so discontinued, per recs. Acute mental status change/encephalopathy/delirium? - pt developed mental status change in the afternoon, convinced she was in hospital basement and insisting to go home AMA. Pt's daughter in room with her , reorienting her. - Brain CT showed no acute change, Brain MRI with contrast to look for mets - ordered, pending. - Vitals remain stable, pt is afebrile, pressures have improved. Follow. Anemia - mixed - Says she has received iron infusion in past. - Follow. Hypothyroid - continue levothyroxine Hyperglycemia - low 100s - no previous h/o diabetes. A1C is 6.3 - follow Epigastric pain/GI ppx - continue famotidine. Not on ppi or h2b at home. - Tylenol, fentanyl patch, Roxicodone 5mg po q6h, morphine 2mg q6h DVT ppx: apixiban, ASA, SCDs/TEDS CODE: DNR Dispo: Palliative consulted - pt made DNR, and family meeting to occur 8amon 01/25 to discuss further goals of care. Transfer to med/surg. Contacts - daughter Carlotta Jon [phone] / Son Tomas (POA) [phone] / Son (POA) [phone]. Current Inpatient Medications Medications (Trade) Dose Ordered Sig/Chalino Route Start Time Stop Time Status Last Admin Dose Admin Ioversol (Optiray 320) 125 ml UD PRN IV 07/15/17 16:30 07/19/17 16:29 Acetaminophen (Tylenol Tab) 650 mg Q4H PRN PO 07/15/17 17:45 08/14/17 17:44 07/17/17 12:40 650 MG Al Hydrox/Mg Hydrox/Simethicone (Maalox Max Susp) 15 ml Q4H PRN PO 07/15/17 17:45 08/14/17 17:44 07/16/17 06:26 15 ML Magnesium Hydroxide (Milk Of Magnesia Susp) 30 ml Q12H PRN PO 07/15/17 17:45 08/14/17 17:44 Ondansetron HCl (Zofran Inj) 4 mg Q6H PRN IV 07/15/17 17:45 08/14/17 17:44 07/17/17 07:56 4 MG Nitroglycerin (Nitrostat Tab) 0.4 mg UD PRN SL 07/15/17 17:45 08/14/17 17:44 Morphine Sulfate (MoRPHine SULFATE INJ) 2 mg Q30M PRN IV 07/15/17 17:45 07/29/17 17:44 07/16/17 22:16 2 MG Polyethylene (Miralax Powder Packet) 17 gm DAILY PRN PO 07/15/17 17:45 08/14/17 17:44 07/16/17 03:28 17 GM Famotidine (Pepcid Tab) 20 mg BID PO 07/15/17 21:00 08/14/17 20:59 07/17/17 09:13 20 MG Fentanyl (Duragesic Patch) 50 mcg Q72H TD 07/17/17 09:00 07/31/17 08:59 07/17/17 09:14 50 MCG Levothyroxine Sodium (Synthroid Tab) 50 mcg DAILYBB PO 07/16/17 06:00 08/15/17 06:59 07/17/17 05:57 50 MCG Multivitamins/ Minerals (Multivitamin W/ Minerals Tab) 1 tab DAILY PO 07/16/17 09:00 08/15/17 08:59 07/17/17 09:13 1 TAB Enteral Nutritional Formula (Boost) 1 can BIDM PO 07/15/17 18:00 08/14/17 17:59 07/16/17 17:51 1 CAN Oxycodone HCl (Roxicodone Immediate Rel Tab) 5 mg Q6H PRN PO 07/15/17 17:45 07/29/17 17:44 07/16/17 11:53 5 MG Miscellaneous (Fentanyl Patch Remove & Waste) 1 ea Q3D@0859 N/A 07/17/17 08:59 08/16/17 08:58 07/17/17 09:16 1 EA Miscellaneous Information (Check Fentanyl Patch Placement) 1 ea QS N/A 07/16/17 00:00 08/15/17 00:00 07/17/17 08:00 1 EA Metoprolol Tartrate (Lopressor Tab) 25 mg BID PO 07/16/17 21:00 08/15/17 20:59 07/17/17 09:13 25 MG Aspirin (Ecotrin Tab) 81 mg QAM PO 07/18/17 09:00 08/17/17 08:59 Apixaban (Eliquis Tab) 5 mg BID PO 07/17/17 21:00 08/16/17 20:59 Date Time Temp Pulse Resp B/P (MAP) Pulse Ox O2 Delivery O2 Flow Rate FiO2 07/17/17 12:00 Nasal Cannula 3.0 07/17/17 08:00 Nasal Cannula 3.0 07/17/17 06:44 36.6 107 20 119/80 (93) 94 Nasal Cannula 3.0 07/17/17 04:00 94 Nasal Cannula 3.0 07/17/17 00:17 36.7 101 18 110/74 (86) 98 Nasal Cannula 3.0 07/17/17 00:01 94 Room Air 3.0 07/16/17 22:26 36.5 22 106/72 (83) 84 Room Air 07/16/17 20:00 94 Nasal Cannula 3.0 07/16/17 19:37 36.7 98 18 95/63 (74) 93 Nasal Cannula 3.0 07/16/17 16:33 36.6 102 22 106/73 (84) 97 Nasal Cannula 3.0 07/16/17 16:00 94 Nasal Cannula 3.0 07/17/17 04:06 Red Blood Count 3.84, Mean Corpuscular Volume 75.8, Mean Corpuscular Hemoglobin 23.2, Mean Corpuscular Hemoglobin Concent 30.6, Mean Platelet Volume 9.9, Neutrophils (%) (Auto) 56.6, Lymphocytes (%) (Auto) 25.1, Monocytes (%) (Auto) 15.0, Eosinophils (%) (Auto) 2.6, Basophils (%) (Auto) 0.4, Neutrophils # (Auto ) 4.07, Lymphocytes # (Auto) 1.81, Monocytes # (Auto) 1.08, Eosinophils # (Auto ) 0.19, Basophils # (Auto) 0.03 07/17/17 04:06 Test 07/16/17 18:04 07/17/17 04:06 Troponin I 1.340 ng/ml (0-0.045) White Blood Count 7.20 K/uL (4.8-10.8) Red Blood Count 3.84 M/uL (4.2-5.4) Hemoglobin 8.9 g/dL (12.0-16.0) Hematocrit 29.1 % (37-47) Mean Corpuscular Volume 75.8 fL (80-100) Mean Corpuscular Hemoglobin 23.2 pg (25-34) Mean Corpuscular Hemoglobin Concent 30.6 g/dl (32-36) Platelet Count 271 K/uL (130-400) Mean Platelet Volume 9.9 fL (7.4-10.4) Neutrophils (%) (Auto) 56.6 % Lymphocytes (%) (Auto) 25.1 % Monocytes (%) (Auto) 15.0 % Eosinophils (%) (Auto) 2.6 % Basophils (%) (Auto) 0.4 % Neutrophils # (Auto) 4.07 K/uL (1.4-6.5) Lymphocytes # (Auto) 1.81 K/uL (1.2-3.4) Monocytes # (Auto) 1.08 K/uL (0.11-0.59) Eosinophils # (Auto) 0.19 K/uL (0-0.5) Basophils # (Auto) 0.03 K/uL (0-0.2) RDW Standard Deviation 45.2 fL (36.4-46.3) RDW Coefficient of Variation 16.2 % (11.5-14.5) Immature Granulocyte % (Auto) 0.3 % Immature Granulocyte # (Auto) 0.02 K/uL (0.00-0.02) Hypochromasia PRESENT Activated Partial Thromboplast Time 68.3 SECONDS (21.0-31.0) Partial Thromboplastin Ratio 2.6 Anion Gap 5.0 mmol/L (3-11) Est Creatinine Clear Calc Drug Dose 87.4 ml/min Estimated GFR () 108.9 Estimated GFR (Non- 94.0 BUN/Creatinine Ratio 22.4 (10-20) Calcium Level 7.7 mg/dl (8.5-10.1) Phosphorus Level 2.6 mg/dl (2.5-4.9) Magnesium Level 2.2 mg/dl (1.8-2.4) Continued [facility] stay due to: other Discharge planning: home Resident Tracking Resident Involvement: Resident Care Provided Care Provided: Adult Hospital Medicine Reviewed: Pt Seen/Exam by Me History continues to have pain off and on. Constitutional: denies: fever Respiratory: negative: short of breath Cardiovascular: denies chest pain General Appearance: no apparent distress Respiratory: lungs clear, no respiratory distress Cardiovascular: regular rate, rhythm Neurologic/Psychiatric: alert, oriented x 3 Skin Characteristics: warm/dry Assessment/Plan Resident Physician Supervision Note: I independently interviewed and examined the patient and verified the morillo history and physical, reviewed labs and image studies, discussed the case with the resident Dr. Glasgow and agree with the findings and care plan.
[2017-07-17] MEDS ORDERED: MoRPHine SULFATE 4 MG/ML 1 ML CARP\\VIAL IV PRN (15:30)
[2017-07-17 15:59] VITALS: BP 116/78; PULSE 90; TEMP 36.6; O2SAT 100
[2017-07-17] MEDS: OXYCODONE HCL IR 5 MG TAB (IMMEDIATE RELEASE) PO PRN (18:21)
[2017-07-17] MEDS: APIXABAN 2.5 MG TAB PO SCH (20:24)
[2017-07-17 23:47] VITALS: BP 90/59; PULSE 91; TEMP 36.4; O2SAT 98
[2017-07-18] MEDS: CHECK FENTANYL PATCH PLACEMENT SCH ×2 (01:40→07:58)
[2017-07-18] MEDS: LEVOTHYROXINE 50 MCG TAB PO SCH (05:11)
[2017-07-18] MEDS: OXYCODONE HCL IR 5 MG TAB (IMMEDIATE RELEASE) PO PRN (05:15)
[2017-07-18 05:55] VITALS: BP 115/79; PULSE 102; O2SAT 94
--- NOTE | 2017-07-18 07:04 | DIAGNOSTIC IMAGING REPORT ---
CHEST ONE VIEW PORTABLE CLINICAL HISTORY: effusion dyspnea COMPARISON STUDY: 07/17/2017 FINDINGS: Stable left pleural effusion. Unchanged prominence of pulmonary vasculature. Moderate stable cardiomegaly. Trace pleural fluid right lateral costophrenic angle IMPRESSION: No change from the prior study. Left pleural effusion unchanged. Trace pleural fluid right lateral costophrenic angle also unchanged The above report was generated using voice recognition software. It may contain grammatical, syntax or spelling errors. Electronically signed by: Riley Stokes M.D. 07/18/2017 7:02 AM Dictated Date/Time: 07/18/2017 7:01 AM
[2017-07-18 07:29] VITALS: BP 96/65; PULSE 95; TEMP 36.4; O2SAT 93
[2017-07-18] MEDS: ACETAMINOPHEN 325 MG TAB PO PRN (07:59)
[2017-07-18] MEDS: BOOST VANILLA PO SCH ×2 (07:59→17:00)
[2017-07-18] MEDS: FAMOTIDINE 20 MG TAB PO SCH (08:00)
[2017-07-18] MEDS: CEROVITE ADV FORMULA TAB PO SCH (08:00)
[2017-07-18] MEDS: APIXABAN 2.5 MG TAB PO SCH (08:00)
[2017-07-18] MEDS: METOPROLOL TARTRATE 25 MG TAB PO SCH (08:00)
[2017-07-18] MEDS ORDERED: ASPIRIN 81 MG ECTAB PO SCH (08:00)
[2017-07-18] MEDS ORDERED: MoRPHine SULFATE 4 MG/ML 1 ML CARP\\VIAL IV PRN (08:30)
[2017-07-18] MEDS ORDERED: FENTANYL PATCH REMOVE & WASTE ONE (08:45)
[2017-07-18] MEDS ORDERED: FENTANYL 75 MCG/HR TDSY TD SCH (09:00)
[2017-07-18] MEDS ORDERED: FENTANYL 50 MCG/HR TDSY TD SCH (09:00)
--- NOTE | 2017-07-18 10:43 | Palliative Care Progress Note ---
Palliative Care Progress Note Date of Service July 18, 2017. Subjective Pt evaluation today including: conversation w/ patient, conversation w/ family , physical exam Pain: 5/10 PO Intake: minimal Family meeting held at the bedside with Dr. Casiano, and Dr. Glasgow with the patient, sons Braden, daughter Mai, and [id number]. Dr. Casiano discussed the extent of her illness. Dr. Zhou performed a thoracentesis yesterday for 700mL Family expressed wishes for Hospice services to be initiated at home. Sufficient family support will be provided and they do have a list of private duty nursing for additional support if needed. All questions answered. CODE STATUS was again addressed and patient to remain DNR. A POLST form was completed and placed on the chart. The patient had complaints of generalized discomfort. Her Morphine and Fentanyl patch was increased. Plan for hopefully being discharged home today. All family in agreement Review of Systems General: Patient states she has 6/10 generalized pain, mostly upper back HEENT: Pt denies DIXON, dizziness, visual changes CV: Patient denies CP, palpitations Resp: Pt does have dyspnea at rest on O2 GI: Pt denies N/V/D or abdominal pain : Pt denies urinary changes Skin: Pt denies any new rashes Objective Vital Signs Date Time Temp Pulse Resp B/P (MAP) Pulse Ox O2 Delivery O2 Flow Rate FiO2 07/18/17 07:29 36.4 95 16 96/65 (75) 93 Nasal Cannula 3.0 07/18/17 05:55 102 115/79 (91) 94 Nasal Cannula 3.0 07/18/17 00:25 Nasal Cannula 3.0 07/17/17 23:47 36.4 91 20 90/59 (69) 98 Nasal Cannula 3.0 07/17/17 16:00 Nasal Cannula 3.0 07/17/17 15:59 36.6 90 20 116/78 (91) 100 Nasal Cannula 3.0 07/17/17 12:00 Nasal Cannula 3.0 Physical Exam General Appearance: + mild distress Respiratory/Chest: no accessory muscle use, + decreased breath sounds Cardiovascular: regular rate, rhythm, no JVD, no murmur, + pertinent finding (+ 2 LE pedal edema) Neurologic/Psychiatric: oriented x 3 Skin: warm/dry Assessment and Plan Palliative Care Encounter Goals of Care Adenocarcionoma of the lung Palliative Care Encounter: -Continue supportive care. Morphine and Fentanyl patch increased for comfort -GOALS OF CARE addressed and POLST form completed at the bedside with patient and family Palliative Performance Scale: 40 % Continued [facility] stay due to: other Discharge planning: home Counseling and Coordination Total time spent 30 minutes with > 50% of that time spent discussing GOALS OF CARE and completing the POLST form with the patient and family at the bedside
[2017-07-18] MEDS: ACETAMINOPHEN 500 MG TAB PO SCH ×2 (13:18→17:24)
--- NOTE | 2017-07-18 14:51 | SURGERY PROGRESS NOTE ---
DATE: 07/18/2017 Ms. Dunn is seen today on 07/18/2017. I tapped her yesterday and she is improved. She is still on oxygen, but states that she slept much better and the patient and her daughter both state that last night was the best night she has had "in a long time." She is getting ready to go home on hospice. I have explained to the patient and her family that this thoracentesis was done solely for her comfort. If the fluid reaccumulates, I have asked the patient to call me should she run into problems of shortness of breath, we will be glad to retap her again or place a PleurX catheter. The patient has a very strong desire to stay out of the hospital, we would do this as an outpatient in the medical treatment unit.
[2017-07-18] MEDS ORDERED: ASPI-320 PO (15:06)
[2017-07-18] MEDS ORDERED: RXC5 PO (15:06)
[2017-07-18] MEDS ORDERED: ACET-24 PO (15:06)
[2017-07-18] MEDS ORDERED: ELQ25 PO (15:06)
[2017-07-18] MEDS ORDERED: DRGTP75 TD (15:06)
--- NOTE | 2017-07-18 15:21 | Discharge Instructions ---
Discharge Instructions Date of Service July 18, 2017. Admission Reason for Admission: Dehydration - Sent From Radiation Onc Discharge Discharge Diagnosis / Problem: End stage adenocarcinoma of lung, Pleural effusion Discharge Goals Goal(s): Decrease discomfort, Improve function, Increase independence, Improve disease control, Learn about illness, Diagnostic testing, Therapeutic intervention Activity Recommendations Activity Limitations: per Instructions/Follow-up section . Instructions / Follow-Up Instructions / Follow-Up You were admitted due to hypoxia due to fluid build up in your lungs -- while here thoracentesis was performed to drain fluid, and Dr. Zhou was able to drain 700cc's which is a little over half a liter. If the fluid reaccumulates, please call Dr. Zhou's office should you run into problems of shortness of breath, he will be glad to retap again or place a PleurX catheter. This can be done in his office, and may help keep you from having to come to the hospital, per your wishes. Your pain improved some after draining the fluid, but we are increasing your pain medication to help make you more comfortable at home. While here we discussed your goals of care and you made it clear that you are interested in being home with family at this time. Home hospice has been arranged, as well as home oxygen. While here Dr. Lance also took a look at your heart, and it appears there is a large clot in one of the chambers -- for this reason you are now on ELIQUIS (apixiban). Please take this as directed to help thin your blood to decrease further clots. Cancer makes your blood 'thicker' than usual, so this medication may help in the meantime. It is NOT recommended that you take any IBUPROFEN containing products while on Eliquis. This may cause too much bleeding in your brain, and worsen your anemia. Please know that opioid pain medication like oxycodone can make you constipated, it is recommended that you take Miralax or Senna or any stool softener to help prevent this. It was a pleasure to take part in your care Ms. Dunn. [facility] Current [facility] Diet Patient's current hospital diet: AHA Diet (Heart Healthy) Discharge Diet Recommended Diet: Regular Diet Procedures Procedures Performed: left thoracentesis under u/s guidance -- pathology report shows NON-malignant cells Pending Studies Studies pending at discharge: no Laboratory Results Hemoglobin A1c Test 07/16/17 05:24 Range/Units Estimated Average Glucose 134 mg/dl Hemoglobin A1c 6.3 H 4.5-5.6 % Lipid Panel Test 07/16/17 05:24 Range/Units Triglycerides Level 93 0-150 mg/dl Cholesterol Level 88 0-200 mg/dl HDL Cholesterol 26 mg/dl Cholesterol/HDL Ratio 3.4 LDL Cholesterol, Calculated 43 mg/dl Medical Emergencies . Who to Call and When: Medical Emergencies: If at any time you feel your situation is an emergency, please call 911 immediately. . Non-Emergent Contact Non-Emergency issues call your: Primary Care Provider, Nursing Assoc, Surgeon Call Non-Emergent contact if: wound has increased drainage, wound has increased redness, wound has increased pain, you have any medication questions . . "Provider Documentation" section prepared by Yaneth Glasgow. .
[2017-07-18 15:54] VITALS: BP 93/63; PULSE 86; TEMP 36.4; O2SAT 94
[2017-07-18] MEDS ORDERED: CHECK FENTANYL PATCH PLACEMENT SCH (16:00)
[2017-07-18] MEDS ORDERED: OXYCODONE HCL IR 5 MG TAB (IMMEDIATE RELEASE) PO SCH (18:00)
--- NOTE | 2017-07-18 19:24 | Discharge Summary ---
Discharge Summary Date of Service July 18, 2017. 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 Immunizations: Have You Had Influenza Vaccine: N/A History of Tetanus Vaccine?: Unknown History of Pneumococcal: Yes Pneumococcal Date: Nov 07, 2005 History of Hepatitis B Vaccine: No Procedures: Left thoracentesis Echocardiogram Consultations: Cardiothoracic surgery Cardiology Palliative Medication Reconciliation New Medications: Acetaminophen (Sb Non-Aspirin Extra Stre) 500 Mg Tab 500 MG PO QID for 30 Days, #120 TAB Apixaban (Eliquis) 2.5 Mg Tab 5 MG PO BID for 30 Days, #60 TAB Aspirin (Aspirin EC Low Dose) 81 Mg Ectab 81 MG PO QAM for 30 Days, #30 TAB Fentanyl (Duragesic) 75 Mcg Tdsy 75 MCG TD Q72H for 30 Days, #5 PATCH Oxycodone HCl (Oxycodone HCl) 5 Mg Tab 5 MG PO Q6H for 30 Days, #120 TAB Continued Medications: Fosinopril Sodium (Monopril) 40 Mg Tab 20 MG PO DAILY, TAB TAKE HALF A TABLET (20 MG) EVERY DAY Furosemide (Lasix) 20 Mg Tab 20 MG PO DAILY Levothyroxine Sodium (Levothyroxine Sodium) 50 Mcg Tab 50 MCG PO DAILY Multiple Minerals W/ Vitamins (Citracal Plus) 1 Tab Tab 1 TAB PO DAILY Multiple Vitamins W/ Minerals (Centrum) 1 Tab Tab 1 TAB PO DAILY Nutritional Supplements (Boost) 1 Liq Liq 1 CAN PO BIDM Ondasetron Odt (Zofran Odt) 4 Mg Tab 4 MG SL Q6H PRN for Nausea, TAB Polyethylene Glycol 3350 (Bulk (Polyethylene Glycol 3350) 1 Pow Pow 17 GM PO DAILY PRN for Constipation, GM Discontinued Medications: Aspirin (Aspirin Ec) 325 Mg Tab 325 MG PO DAILY Fentanyl (Duragesic) 50 Mcg Tdsy 50 MCG TOP CQ72HR, PATCH Oxycodone HCl (Oxycodone HCl) 5 Mg Tab 5-10 MG PO Q6H PRN for Pain Simvastatin (Zocor) 80 Mg Tab 80 MG PO QPM, TAB Discharge Exam Had family meeting on morning of discharge with patient, pt's sons Tomas and Matthew, daughter Rika and daughter in law. Pt is sitting on side of the bed, and does express her desire again to go home and to rest there with family peacefully. Patient states that her chest pain is back, dull in nature and persistent, 4/10. Patient was given morphine and roxicodone 2 hours earlier with effects not lasting long enough. Palliative team present to help patient fill out POLST form. Meeting went well, all questions answered. Decision made to engage home hospice, and oxygen to be set up at home. ROS See HPI for pertinent positives and negatives. PHYSICAL EXAM GENERAL: Conversant, sitting up in bed, nasal cannula in place. Alert and oriented x 4. HENT: Normocephalic, atraumatic. EYES: Normal conjunctiva. Sclera non-icteric. NECK: Supple. FROM. CHEST: tender to palpation at mid sternum. No sign of respiratory distress or tachypnea. LOWER EXTREMITIES: Calves are equal size bilaterally. No edema. NEURO: No motor deficits noted. SKIN: No rash or jaundice noted. Hospital Course Ms. Dunn initially presented to the ED with complaints of difficulty breathing. 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 In the ED , She was found to be hypoxic on room air (86), tachycardic and hypotensive (62/45). On imaging she was found to have an elevated left hemidiaphragm and left pleural effusion that was increased from previous studies. ECG showed ST elevation and T wave inversion which were both new. Pt had elevated troponin. For concern of ACS - patient was placed on Heparin drip. She was seen by cardiology and echocardiogram revealed a 3cm apical mass that was c/w thrombus, as well as a severely dilated LT atrium and moderately reduced EF 35% . Pt was switched to apixiban and we continued ASA 81mg. Pt is known to cardiothoracic surgeon Dr. Zhou and after examination, he performed a left thoracentesis on Ms Dunn and drained about 700ccs of pleural fluid which pathology deemed non malignant. Pt tolerated this procedure well and did seem to gain symptomatic benefit from it. Throughout her admission pt made it clear that she did not want to be in the hospital but also was uncomfortable from her pain, and unable to sleep. Given her poor prognosis from advanced lung cancer and congestive heart failure, palliative was consulted. After shared decision making, pt's goals of care were clarified and code status changed to Do not Resuscitate. Arrangements for home hospice were made, and pt was sent home with oxygen and pain medication as above. It was a pleasure to take care of Ms. Turk. Total Time Spent: Greater than 30 minutes This includes examination of the patient, discharge planning, medication reconciliation, and communication with other providers. Discharge Instructions Please refer to the electronic Patient Visit Report (Discharge Instructions) for additional information. Additional Copies To Daron Harris M.D. Resident Tracking Resident Involvement: Resident Care Provided Care Provided: Adult Hospital Medicine Reviewed: Pt Seen/Exam by Me History pain better controlled family at bedside. plan to be home with hospice. Constitutional: denies: fever Respiratory: negative: short of breath Cardiovascular: denies chest pain General Appearance: no apparent distress Respiratory: lungs clear, no respiratory distress Cardiovascular: regular rate, rhythm Neurologic/Psychiatric: alert, oriented x 3 Skin Characteristics: warm/dry Assessment/Plan Resident Physician Supervision Note: I independently interviewed and examined the patient and verified the morillo history and physical, reviewed labs and image studies, discussed the case with the resident Dr. Glasgow and agree with the findings and care plan. Time spent in discharge 40 min
[2017-07-19] MEDS ORDERED: POLYETHYLENE (MIRALAX) 17 GM PACK PO SCH (08:00)
[2017-07-21] MEDS ORDERED: FENTANYL PATCH REMOVE & WASTE SCH (08:59)
== END 2017-07-18 17:43 | disposition hospice, home (50) | DRG 280 ==
LOC: C.EDB 14:31 → C.2T 17:54 → EDBEDREQ 17:58 → ENRESERV 18:21 → C.4E 07-17 15:18
PROVIDERS: ADMIT Internal Medicine; ATTEND Family Medicine
PROC: 0W9B3ZZ Drainage of Left Pleural Cavity, Percutaneous Approach (ICD-10-PCS; principal; 2017-07-17)
DX: I21.A1 Myocardial infarction type 2 (principal); G93.40 Encephalopathy, unspecified; C34.90 Malignant neoplasm of unspecified part of unspecified bronchus or lung; C79.51 Secondary malignant neoplasm of bone; J90 Pleural effusion, not elsewhere classified; R09.02 Hypoxemia; R00.0 Tachycardia, unspecified; I95.9 Hypotension, unspecified; R73.9 Hyperglycemia, unspecified; R10.13 Epigastric pain; R45.1 Restlessness and agitation; E86.0 Dehydration; F50.89 Other specified eating disorder; I50.9 Heart failure, unspecified; I11.0 Hypertensive heart disease with heart failure; J44.9 Chronic obstructive pulmonary disease, unspecified; D64.89 Other specified anemias; E78.5 Hyperlipidemia, unspecified; E03.9 Hypothyroidism, unspecified; I73.9 Peripheral vascular disease, unspecified; F17.210 Nicotine dependence, cigarettes, uncomplicated; Z66 Do not resuscitate; Z51.5 Encounter for palliative care; Z71.6 Tobacco abuse counseling; Z79.82 Long term (current) use of aspirin; Z79.891 Long term (current) use of opiate analgesic; Z79.899 Other long term (current) drug therapy